=== PATIENT | female | born 1980 | race Caucasian/White ===

== ENCOUNTER 2016-12-20 02:20 | Emergency (ER) | payer MEDICAID, OTHER, SELFPAY ==
[~2016-12-20] VITALS: Ht 160 cm; Wt 97.5 kg
[~2016-12-20 02:20] MED LIST: COLA100C3 PO; DULERA INH; MONT10TA2 PO; MOTR200T44 PO; OMEP20CA3 PO; OXYB5TA PO; albuterol inhaler INH
[2016-12-20 02:27] VITALS: BP 129/79
[2016-12-20] MEDS ORDERED: OMEP40CA2 PO (02:30)
[2016-12-20] MEDS ORDERED: CYMB60CA3 PO (02:32)
[2016-12-20] MEDS ORDERED: GABA-282 PO (02:32)
[2016-12-20] MEDS ORDERED: CYMB1CAP4 PO (02:33)
[2016-12-20] MEDS ORDERED: HYDROmorphone HCL 1 MG/ML SYRINGE (J1170) IM ONE (03:15)
[2016-12-20] MEDS ORDERED: cefTRIAXone SOD 1 GM VIAL (J0696) IM ONE (03:15)
[2016-12-20] MEDS ORDERED: ZITHTAB PO (03:20)
[2016-12-20] MEDS ORDERED: AZITHROMYCIN 250 MG TAB PO ONE (03:30)
[2016-12-20] MEDS ORDERED: LIDOCAINE 1% MDV 20ML VIAL As Ordered ONE (03:45)
[2016-12-20] MEDS ORDERED: ACET30TAB PO (14:40)
== END 2016-12-20 04:23 | disposition home or self-care (01) ==
LOC: M ED 03:35
DX: H73.011 Bullous myringitis, right ear (principal); J45.909 Unspecified asthma, uncomplicated; K21.9 Gastro-esophageal reflux disease without esophagitis; F32.9 Major depressive disorder, single episode, unspecified
CPT/HCPCS: 96372; 99281; J0696; J1170

== ENCOUNTER 2016-12-20 13:52 | Emergency (ER) | payer SELFPAY ==
[~2016-12-20] VITALS: Ht 160 cm; Wt 97.5 kg
[~2016-12-20 13:52] MED LIST changes: +CYMB1CAP4 PO; +CYMB60CA3 PO; +GABA-282 PO; +OMEP40CA2 PO; +ZITHTAB PO
[2016-12-20 13:53] VITALS: BP 151/85
[2016-12-20] MEDS ORDERED: ACET30TAB PO (14:40)
== END 2016-12-20 14:58 | disposition home or self-care (01) ==
LOC: M ED 14:45
DX: H66.91 Otitis media, unspecified, right ear (principal); Z51.89 Encounter for other specified aftercare; E66.9 Obesity, unspecified; Z98.84 Bariatric surgery status; Z88.6 Allergy status to analgesic agent; Z79.51 Long term (current) use of inhaled steroids; Z79.899 Other long term (current) drug therapy

== ENCOUNTER → 2017-02-20 | Outpatient (REF) | payer OTHER ==
[~2017-02-20] MED LIST changes: +ACET30TAB PO; -COLA100C3 PO; +COLA100C5 PO; -OXYB5TA PO; +OXYB5TAB10 PO
[2017-02-20 15:36] LABS: BASO # 0.1 K/mm3 (0.0-0.2); BASO % 0.6 % (0.0-1.0); EOS # 0.5 K/mm3 (0.0-0.50); EOS % 5.9 % (0.0-3.0); LARGE UNSTAINED CELL # 0.1 K/mm3 (0.0-0.4); LARGE UNSTAINED CELL % 1.6 % (0.0-4.0); LYMPH # 2.2 K/mm3 (1.5-4.5); LYMPH % 24.2 % (24.0-44.0); MEAN CORPUSCULAR HEMOGLOBIN 34.3 pg (27.0-33.0); MEAN CORPUSCULAR HGB CONC 33.4 g/dl (32.0-36.5); MEAN CORPUSCULAR VOLUME 102.8 fl (80.0-96.0); MONO # 0.4 K/mm3 (0.0-0.8); MONO % 4.4 % (0.0-5.0); NEUTROPHILS # 5.4 K/mm3 (1.8-7.7); NEUTROPHILS % 63.3 % (36.0-66.0); PLATELET COUNT, AUTOMATED 269 k/mm3 (150-450); RED CELL DISTRIBUTION WIDTH 12.9 % (11.5-14.5); WHITE BLOOD COUNT 8.5 K/mm3 (4.0-10.0)
[2017-02-20 15:52] LABS: ALBUMIN 3.4 GM/DL (3.2-5.2); ALBUMIN/GLOBULIN RATIO 1.03 (1.00-1.93); ALKALINE PHOSPHATASE 101 U/L (45-117); ALT/SGPT 21 U/L (12-78); ANION GAP 10 MEQ/L (8-16); AST/SGOT 22 U/L (15-37); BILIRUBIN,TOTAL 0.4 MG/DL (0.2-1.0); BLOOD UREA NITROGEN 5 MG/DL (7-18); CALCIUM LEVEL 8.9 MG/DL (8.5-10.1); CARBON DIOXIDE LEVEL 23 MEQ/L (21-32); CHLORIDE LEVEL 108 MEQ/L (98-107); CHOLESTEROL LEVEL 146 MG/DL (<200); CREATININE FOR GFR 0.74 MG/DL (0.55-1.02); FREE T4 0.77 NG/DL (0.76-1.46); GLOMERULAR FILTRATION RATE > 60.0 (>60); GLUCOSE, FASTING 84 MG/DL (70-105); POTASSIUM SERUM 4.4 MEQ/L (3.5-5.1); SODIUM LEVEL 141 MEQ/L (136-145); TOTAL PROTEIN 6.7 GM/DL (6.4-8.2); TRIGLYCERIDES LEVEL 144 MG/DL (<150)
[2017-02-20 15:55] LABS: VITAMIN B12 LEVEL 285 PG/ML (247-911)
[2017-02-20 17:00] LABS: ERYTHROCYTE SEDIMENTATION RATE 4 mm/hr (0-20)
== END ==
LOC: M SFHCSACK 10:39
PROVIDERS: ATTEND Physician Assistant
DX: R53.83 Other fatigue (principal); G89.29 Other chronic pain; Z13.220 Encounter for screening for lipoid disorders

== ENCOUNTER → 2017-04-30 | Outpatient (CLI) | payer OTHER ==
--- NOTE | 2017-04-30 13:10 | REP ---
BILATERAL SHOULDER SERIES: Three views of each shoulder are performed. There is no fracture or dislocation bilaterally. No intrinsic osseous pathology is seen. There is mild joint space narrowing and spurring at the acromioclavicular joints bilaterally. IMPRESSION: Mild degenerative changes bilateral acromioclavicular joints. Unreviewed
--- NOTE | 2017-04-30 13:14 | REP ---
Cervical spine series: Seven views. History: Neck pain. Findings: Lateral views done in flexion, extension and neutral position show preserved vertebral body heights and normal alignment. No subluxation or instability is seen. Disc spaces are maintained. Prevertebral soft tissues are not widened. The patient is noted to be edentulous. Oblique images demonstrate intact neural foramina bilaterally at each cervical level and normally aligned facets. AP and open mouth odontoid views are unremarkable. Impression: Negative cervical spine radiographs. Signed by Brian Ramos MD 04/30/2017 03:51 P
--- NOTE | 2017-04-30 13:14 | REP ---
LUMBOSACRAL SPINE: Five views of the lumbosacral spine performed. There is no compression fracture or malalignment. There is normal lumbar lordosis with no spondylolysis or spondylolisthesis. There is mild spurring of L4. There is mild disc space narrowing with subchondral sclerosis at L5-S1, with sclerosis at the posterior facet joints at that level. The posterior elements are intact. IMPRESSION: Mild degenerative changes L5-S1. Signed by Lázaro Tavarez MD 04/30/2017 04:50 P
--- NOTE | 2017-04-30 13:15 | REP ---
SACROILIAC JOINTS: Four views of the sacroiliac joints performed. There is no fracture or dislocation. There is very mild bilateral narrowing and subchondral sclerosis at the sacroiliac joints. IMPRESSION: Mild arthritic changes bilateral sacroiliac joints. Signed by Lázaro Tavarez MD 04/30/2017 04:50 P
[2017-04-30 19:07] LABS: ALBUMIN 3.8 GM/DL (3.2-5.2); ALBUMIN/GLOBULIN RATIO 1.15 (1.00-1.93); ALKALINE PHOSPHATASE 128 U/L (45-117); ALT/SGPT 120 U/L (12-78); ANION GAP 10 MEQ/L (8-16); AST/SGOT 196 U/L (15-37); BILIRUBIN,TOTAL 0.4 MG/DL (0.2-1.0); BLOOD UREA NITROGEN 5 MG/DL (7-18); CALCIUM LEVEL 8.7 MG/DL (8.5-10.1); CARBON DIOXIDE LEVEL 26 MEQ/L (21-32); CHLORIDE LEVEL 104 MEQ/L (98-107); COMPLEMENT C3 122 MG/DL (90-180); COMPLEMENT C4 27.9 MG/DL (10-40); CREATININE FOR GFR 0.72 MG/DL (0.55-1.02); GLOMERULAR FILTRATION RATE > 60.0 (>60); GLUCOSE, FASTING 82 MG/DL (70-105); POTASSIUM SERUM 4.3 MEQ/L (3.5-5.1); SODIUM LEVEL 140 MEQ/L (136-145); TOTAL PROTEIN 7.1 GM/DL (6.4-8.2)
[2017-04-30 19:41] LABS: INR 0.94
[2017-04-30 20:28] LABS: BASO # 0.1 K/mm3 (0.0-0.2); EOS # 0.8 K/mm3 (0.0-0.50); EOS % 11.2 % (0.0-3.0); LARGE UNSTAINED CELL # 0.1 K/mm3 (0.0-0.4); LARGE UNSTAINED CELL % 1.9 % (0.0-4.0); LYMPH # 1.9 K/mm3 (1.5-4.5); LYMPH % 26.4 % (24.0-44.0); MEAN CORPUSCULAR HEMOGLOBIN 35.7 pg (27.0-33.0); MEAN CORPUSCULAR HGB CONC 34.8 g/dl (32.0-36.5); MEAN CORPUSCULAR VOLUME 102.4 fl (80.0-96.0); MONO # 0.3 K/mm3 (0.0-0.8); MONO % 4.6 % (0.0-5.0); NEUTROPHILS # 3.9 K/mm3 (1.8-7.7); NEUTROPHILS % 54.9 % (36.0-66.0); PLATELET COUNT, AUTOMATED 288 k/mm3 (150-450); RED CELL DISTRIBUTION WIDTH 12.5 % (11.5-14.5)
[2017-04-30 21:04] LABS: ERYTHROCYTE SEDIMENTATION RATE 2 mm/hr (0-20)
[2017-05-02 13:34] LABS: ALBUMIN 4.17 GM/DL (3.29-5.55); ALBUMIN % 58.8 % (55.8-66.1); GAMMA GLOBULIN % 14.2 % (11.1-18.8)
[2017-05-03 00:55] LABS: Lyme Disease IgG/IgM Antibodie <0.91 ISR (0.00-0.90); Lyme Disease IgM Ab Quantitati <0.80 index (0.00-0.79)
== END ==
LOC: M SMT 11:34
PROVIDERS: ATTEND Internal Medicine Rheumatology
DX: M35.9 Systemic involvement of connective tissue, unspecified (principal); Z79.899 Other long term (current) drug therapy; R53.82 Chronic fatigue, unspecified; D80.1 Nonfamilial hypogammaglobulinemia

== ENCOUNTER 2017-05-13 21:08 | Emergency (ER) | payer OTHER ==
[~2017-05-13] VITALS: Ht 160 cm; Wt 100.0 kg
[2017-05-14] MEDS ORDERED: ONDANSETRON 4MG/2ML VIAL (J2405) IV ONE (01:45)
[2017-05-14] MEDS ORDERED: NS 1,000 ML IV ONE (01:45)
[2017-05-14] MEDS ORDERED: MORPHINE 4 MG/ML 1ML SYRINGE IV ONE (01:45)
[2017-05-14 02:05] LABS: BASO # 0.1 10^3/uL (0.0-0.2); BASO % 0.5 % (0.0-1.0); EOS # 0.9 10^3/uL (0.0-0.50); EOS % 7.9 % (0.0-3.0); IMMATURE GRANULOCYTE % 0.3 % (0-0); LYMPH % 26.6 % (24.0-44.0); MEAN CORPUSCULAR HEMOGLOBIN 34.7 pg (27.0-33.0); MEAN CORPUSCULAR HGB CONC 34.5 g/dl (32.0-36.5); MEAN CORPUSCULAR VOLUME 100.7 fl (80.0-96.0); MONO # 0.7 10^3/uL (0.0-0.8); MONO % 6.3 % (0.0-5.0); NEUTROPHILS # 6.7 10^3/uL (1.8-7.7); NEUTROPHILS % 58.4 % (36.0-66.0); PLATELET COUNT, AUTOMATED 231 10^3/uL (150-450); RED CELL DISTRIBUTION WIDTH 12.5 % (11.5-14.5); WHITE BLOOD COUNT 11.4 10^3/uL (4.0-10.0)
[2017-05-14 02:30] LABS: ALBUMIN 3.4 GM/DL (3.2-5.2); ALKALINE PHOSPHATASE 142 U/L (45-117); ALT/SGPT 25 U/L (12-78); AMYLASE 35 U/L (25-115); ANION GAP 4 MEQ/L (8-16); AST/SGOT 25 U/L (15-37); BILIRUBIN,DIRECT 0.2 MG/DL (0.0-0.2); BILIRUBIN,TOTAL 0.7 MG/DL (0.2-1.0); BLOOD UREA NITROGEN 6 MG/DL (7-18); CALCIUM LEVEL 8.6 MG/DL (8.5-10.1); CARBON DIOXIDE LEVEL 30 MEQ/L (21-32); CHLORIDE LEVEL 106 MEQ/L (98-107); CREATININE FOR GFR 0.68 MG/DL (0.55-1.02); GLOMERULAR FILTRATION RATE > 60.0 (>60); GLUCOSE, FASTING 84 MG/DL (70-105); SODIUM LEVEL 140 MEQ/L (136-145); TOTAL PROTEIN 6.8 GM/DL (6.4-8.2)
--- NOTE | 2017-05-14 03:20 | REPUSA ---
CLINICAL HISTORY: RUQ pain. TECHNIQUE: Realtime sonographic images were obtained in multiple projections. COMMENTS: The visualized liver is of uniform echo texture without evidence of mass or defect. There is no intra or extrahepatic biliary ductal dilatation. The common bile duct measures 5.8 mm. The gallbladder is physiologically distended without evidence of calculi. The gallbladder wall is not thickened and there is no pericholecystic fluid. The right kidney measures 10.3x5.3x4.3 cm The visualized portions of the pancreas are unremarkable. IMPRESSION: No evidence of cholelithiasis or cholecystitis. Thank you for your kind referral of this patient.
[2017-05-14 04:20] VITALS: BP 128/62
== END 2017-05-14 04:21 | disposition home or self-care (01) ==
LOC: M ED 21:08
DX: R10.9 Unspecified abdominal pain (principal); J45.909 Unspecified asthma, uncomplicated; Z79.899 Other long term (current) drug therapy; Z88.8 Allergy status to other drugs, medicaments and biological substances; Z98.0 Intestinal bypass and anastomosis status
CPT/HCPCS: 76705; 80048; 80076; 81001; 82150; 83690; 85025; 87088; 96374; 96375; 99283; J2405

== ENCOUNTER → 2017-05-27 | Outpatient (REF) | payer OTHER | LOC: M SFHCSACK 10:48 | PROVIDERS: ATTEND Physician Assistant | DX: G89.4 Chronic pain syndrome (principal); Z87.440 Personal history of urinary (tract) infections; E55.9 Vitamin D deficiency, unspecified; Z86.39 Personal history of other endocrine, nutritional and metabolic disease ==

== ENCOUNTER → 2017-05-27 | Outpatient (CLI) | payer OTHER ==
[2017-05-27 22:02] LABS: BASO # 0.1 10^3/uL (0.0-0.2); BASO % 0.8 % (0.0-1.0); EOS # 0.4 10^3/uL (0.0-0.50); EOS % 3.9 % (0.0-3.0); IMMATURE GRANULOCYTE % 0.2 % (0-0); LYMPH # 2.2 10^3/uL (1.5-4.5); LYMPH % 24.6 % (24.0-44.0); MEAN CORPUSCULAR HEMOGLOBIN 34.5 pg (27.0-33.0); MEAN CORPUSCULAR HGB CONC 32.9 g/dl (32.0-36.5); MEAN CORPUSCULAR VOLUME 104.8 fl (80.0-96.0); MONO # 0.6 10^3/uL (0.0-0.8); MONO % 6.2 % (0.0-5.0); NEUTROPHILS # 5.7 10^3/uL (1.8-7.7); NEUTROPHILS % 64.3 % (36.0-66.0); PLATELET COUNT, AUTOMATED 207 10^3/uL (150-450); RED CELL DISTRIBUTION WIDTH 12.7 % (11.5-14.5); WHITE BLOOD COUNT 8.9 10^3/uL (4.0-10.0)
[2017-05-27 22:03] LABS: VITAMIN B12 LEVEL 518 PG/ML (247-911)
[2017-05-27 22:13] LABS: ALKALINE PHOSPHATASE 127 U/L (45-117); ALT/SGPT 28 U/L (12-78); ANION GAP 8 MEQ/L (8-16); AST/SGOT 45 U/L (15-37); BILIRUBIN,TOTAL 0.6 MG/DL (0.2-1.0); BLOOD UREA NITROGEN 6 MG/DL (7-18); CALCIUM LEVEL 9.1 MG/DL (8.5-10.1); CARBON DIOXIDE LEVEL 29 MEQ/L (21-32); CHLORIDE LEVEL 104 MEQ/L (98-107); CREATININE FOR GFR 0.61 MG/DL (0.55-1.02); GLOMERULAR FILTRATION RATE > 60.0 (>60); GLUCOSE, FASTING 90 MG/DL (70-105); POTASSIUM SERUM 4.2 MEQ/L (3.5-5.1); SODIUM LEVEL 141 MEQ/L (136-145)
[2017-05-27 22:14] LABS: ALBUMIN 3.7 GM/DL (3.2-5.2); ALBUMIN/GLOBULIN RATIO 1.12 (1.00-1.93)
== END ==
LOC: M SFHCSACK 10:10
PROVIDERS: ATTEND Physician Assistant
DX: G89.4 Chronic pain syndrome (principal); Z36.89 Encounter for other specified antenatal screening

== ENCOUNTER → 2017-05-29 | Outpatient (REF) | payer OTHER | LOC: M SFHCSACK 15:45 | PROVIDERS: ATTEND Physician Assistant | DX: E55.9 Vitamin D deficiency, unspecified (principal) ==

== ENCOUNTER → 2017-07-15 | Outpatient (CLI) | payer OTHER ==
--- NOTE | 2017-07-15 13:43 | REP ---
MAXILLOFACIAL CT WITHOUT CONTRAST: HISTORY: Carotid pansinusitis. Minimal mucosal thickening is present in the right ethmoid sinus. The remaining sinuses are clear. The ostiomeatal units are patent. The middle and inferior nasal turbinates are partially paradoxical. There is mehreen bullosa of the middle nasal turbinates. There is mild deviation of the nasal septum to the right. A spur is present arising from the right side of the nasal septum. The cribriform plate, medial choudhury of the orbits and optic canals are intact. The carotid canals form a segment of the posterolateral choudhury of the sphenoid sinus. The sphenoid sinus septa insert into the internal carotid canal choudhury. A right cleft palate is present. A 4 mm ossified density likely representing a tooth remnant is present in the right anterior maxilla. IMPRESSION: Sinus mucosal thickening as described above. Signed by Lisandro Garcia MD 07/15/2017 01:45 P
== END ==
LOC: M RAD 12:43
PROVIDERS: ATTEND Otolaryngology
DX: J32.4 Chronic pansinusitis (principal)

== ENCOUNTER 2017-07-28 15:04 | Emergency (ER) | payer OTHER ==
[~2017-07-28] VITALS: Ht 160 cm; Wt 95.5 kg
[2017-07-28 15:54] LABS: BASO # 0.1 10^3/uL (0.0-0.2); BASO % 0.6 % (0.0-1.0); EOS # 0.2 10^3/uL (0.0-0.50); EOS % 2.1 % (0.0-3.0); IMMATURE GRANULOCYTE % 0.4 % (0-0); LYMPH # 1.8 10^3/uL (1.5-4.5); LYMPH % 22.3 % (24.0-44.0); MEAN CORPUSCULAR HEMOGLOBIN 34.9 pg (27.0-33.0); MEAN CORPUSCULAR HGB CONC 34.6 g/dl (32.0-36.5); MEAN CORPUSCULAR VOLUME 100.7 fl (80.0-96.0); MONO # 0.6 10^3/uL (0.0-0.8); MONO % 7.1 % (0.0-5.0); NEUTROPHILS # 5.4 10^3/uL (1.8-7.7); NEUTROPHILS % 67.5 % (36.0-66.0); PLATELET COUNT, AUTOMATED 268 10^3/uL (150-450); RED CELL DISTRIBUTION WIDTH 12.8 % (11.5-14.5)
[2017-07-28] MEDS ORDERED: PERCOCET 5MG/325MG TAB PO ONE (16:00)
[2017-07-28] MEDS ORDERED: ONDANSETRON 4 MG ORAL DISINTEGRATING TAB (S0181) PO ONE (16:00)
[2017-07-28 16:22] LABS: ALBUMIN 3.5 GM/DL (3.2-5.2); ALBUMIN/GLOBULIN RATIO 1.13 (1.00-1.93); ALKALINE PHOSPHATASE 124 U/L (45-117); ALT/SGPT 61 U/L (12-78); ANION GAP 12 MEQ/L (8-16); AST/SGOT 56 U/L (7-37); BILIRUBIN,TOTAL 0.3 MG/DL (0.2-1.0); BLOOD UREA NITROGEN 2 MG/DL (7-18); CALCIUM LEVEL 8.2 MG/DL (8.5-10.1); CARBON DIOXIDE LEVEL 25 MEQ/L (21-32); CHLORIDE LEVEL 108 MEQ/L (98-107); CREATININE FOR GFR 0.63 MG/DL (0.55-1.02); GLOMERULAR FILTRATION RATE > 60.0 (>60); GLUCOSE, FASTING 89 MG/DL (70-105); POTASSIUM SERUM 3.9 MEQ/L (3.5-5.1); SODIUM LEVEL 145 MEQ/L (136-145); TOTAL PROTEIN 6.6 GM/DL (6.4-8.2)
[2017-07-28 16:38] LABS: HIV SCRN NEGATIVE (NEGATIVE)
[2017-07-28 16:39] LABS: CONTROL LINE INT CTR LINE PRESENT; HIV SCRN1 NEGATIVE (NEGATIVE)
[2017-07-28] MEDS ORDERED: TETANUS IMMUNE GLOBULIN (HUMAN) 250 UNITS/ML SYRINGE (J1670)(90389) IM ONE (17:00)
[2017-07-28] MEDS ORDERED: AZITHROMYCIN 250 MG TAB PO ONE (17:00)
[2017-07-28] MEDS ORDERED: metroNIDAZOLE (FLAGYL) 500 MG TAB PO ONE (17:00)
[2017-07-28] MEDS ORDERED: EXPOSURE KIT-ADULT 7 DAY SUPPLY PO ONE ×2 (17:00)
[2017-07-28] MEDS ORDERED: cefTRIAXone SOD 250 MG VIAL (J0696) IM ONE (17:00)
[2017-07-28] MEDS ORDERED: NORCOTAB PO (18:39)
[2017-07-28] MEDS ORDERED: ZOFR4TAB3 PO (18:39)
--- NOTE | 2017-07-28 19:00 | REPUSA ---
CT of the head Clinical history: Headache. Technique: Multiple axial CT images were obtained through the head without administration of contrast . Findings: The ventricles and sulci are symmetric bilaterally. There is no evidence of acute hemorrhag e or infarct. There is no midline shift, mass effect, or extra-axial fluid collection. The osseous st ructures are unremarkable. The visualized paranasal sinuses and mastoid air cells are clear. Impression: Negative study.
[2017-07-28 19:23] VITALS: BP 126/79
[2017-07-28] MEDS ORDERED: ADACEL/BOOSTRIX VACCINE (DIPHTH/PERTUSS/ACELL/TETANUS)0.5ML SYR (90715) IM ONE (19:30)
[2017-07-29 11:13] LABS: HEPATITIS B SURFACE ANTIBODY NEGATIVE (POSITIVE)
== END 2017-07-28 20:14 | disposition home or self-care (01) ==
LOC: M ED 15:04
DX: T76.21XA Adult sexual abuse, suspected, initial encounter (principal); S09.90XA Unspecified injury of head, initial encounter; S80.00XA Contusion of unspecified knee, initial encounter; X58.XXXA Exposure to other specified factors, initial encounter; Y92.9 Unspecified place or not applicable; Y93.9 Activity, unspecified; Y99.9 Unspecified external cause status; Z98.84 Bariatric surgery status; F17.200 Nicotine dependence, unspecified, uncomplicated; Z79.899 Other long term (current) drug therapy; Z88.6 Allergy status to analgesic agent
CPT/HCPCS: 70450; 80053; 85025; 86706; 86780; 86803; 87081; 87210; 87340; 87491; 87591; 87806; 90389; 90471; 90715; 99291; J0696

== ENCOUNTER → 2017-07-29 | Outpatient (CLI) | payer OTHER ==
[~2017-07-29] MED LIST changes: +NORCOTAB PO; +ZOFR4TAB3 PO
== END ==
LOC: M SFHCSACK 11:27
PROVIDERS: ATTEND Physician Assistant
DX: M79.7 Fibromyalgia (principal)

== ENCOUNTER → 2017-07-29 | Outpatient (REF) | payer OTHER ==
[2017-07-29 15:24] LABS: ALBUMIN 3.4 GM/DL (3.2-5.2); ALBUMIN/GLOBULIN RATIO 1.13 (1.00-1.93); ALKALINE PHOSPHATASE 113 U/L (45-117); ALT/SGPT 53 U/L (12-78); ANION GAP 10 MEQ/L (8-16); AST/SGOT 53 U/L (7-37); BILIRUBIN,TOTAL 0.7 MG/DL (0.2-1.0); BLOOD UREA NITROGEN 3 MG/DL (7-18); CALCIUM LEVEL 8.3 MG/DL (8.5-10.1); CARBON DIOXIDE LEVEL 28 MEQ/L (21-32); CHLORIDE LEVEL 106 MEQ/L (98-107); CREATININE FOR GFR 0.75 MG/DL (0.55-1.02); GLOMERULAR FILTRATION RATE > 60.0 (>60); GLUCOSE, FASTING 100 MG/DL (70-105); POTASSIUM SERUM 3.6 MEQ/L (3.5-5.1); SODIUM LEVEL 144 MEQ/L (136-145); TOTAL PROTEIN 6.4 GM/DL (6.4-8.2)
== END ==
LOC: M SFHCSACK 11:31
PROVIDERS: ATTEND Physician Assistant
DX: R25.1 Tremor, unspecified (principal); E55.9 Vitamin D deficiency, unspecified

== ENCOUNTER → 2017-08-09 | Outpatient (REF) | payer OTHER | LOC: M SFHCSACK 11:54 | DX: Z87.440 Personal history of urinary (tract) infections (principal) | CPT/HCPCS: 87086 ==

== ENCOUNTER 2017-08-12 11:47 | Emergency (ER) | payer OTHER ==
[2017-08-12] MEDS: PERCOCET 5MG/325MG TAB PO (16:06)
== END 2017-08-12 17:06 | disposition home or self-care (01) ==
LOC: M ED 11:47
DX: S30.0XXA Contusion of lower back and pelvis, initial encounter (principal); M54.5 Low back pain; W10.9XXA Fall (on) (from) unspecified stairs and steps, initial encounter; Y92.9 Unspecified place or not applicable; Y93.9 Activity, unspecified; Z98.84 Bariatric surgery status; J45.909 Unspecified asthma, uncomplicated; J30.2 Other seasonal allergic rhinitis; Z79.899 Other long term (current) drug therapy; Z88.6 Allergy status to analgesic agent
CPT/HCPCS: 72110

== ENCOUNTER → 2017-10-08 | Outpatient (REF) | payer OTHER ==
[2017-10-08 21:33] LABS: BASO # 0.1 10^3/uL (0.0-0.2); BASO % 0.8 % (0.0-1.0); EOS # 0.8 10^3/uL (0.0-0.50); EOS % 9.4 % (0.0-3.0); HEMATOCRIT 41.1 % (36.0-47.0); HEMOGLOBIN 13.6 g/dl (12.0-16.0); IMMATURE GRANULOCYTE % 0.2 % (0-3.0); LYMPH % 24.1 % (24.0-44.0); MEAN CORPUSCULAR HEMOGLOBIN 34.2 pg (27.0-33.0); MEAN CORPUSCULAR HGB CONC 33.1 g/dl (32.0-36.5); MEAN CORPUSCULAR VOLUME 103.3 fl (80.0-96.0); MONO # 0.7 10^3/uL (0.0-0.8); MONO % 7.8 % (0.0-5.0); NEUTROPHILS # 4.8 10^3/uL (1.8-7.7); NEUTROPHILS % 57.7 % (36.0-66.0); PLATELET COUNT, AUTOMATED 234 10^3/uL (150-450); RED BLOOD COUNT 3.98 10^6/uL (4.00-5.40); RED CELL DISTRIBUTION WIDTH 12.1 % (11.5-14.5); WHITE BLOOD COUNT 8.3 10^3/uL (4.0-10.0)
[2017-10-08 21:58] LABS: VITAMIN B12 LEVEL 783 PG/ML
[2017-10-08 21:59] LABS: ALBUMIN 3.4 GM/DL (3.2-5.2); ALBUMIN/GLOBULIN RATIO 1.17 (1.00-1.93); ALKALINE PHOSPHATASE 107 U/L (45-117); ALT/SGPT 30 U/L (12-78); ANION GAP 9 MEQ/L (8-16); AST/SGOT 34 U/L (7-37); BILIRUBIN,TOTAL 0.4 MG/DL (0.2-1.0); BLOOD UREA NITROGEN 2 MG/DL (7-18); CALCIUM LEVEL 8.4 MG/DL (8.5-10.1); CARBON DIOXIDE LEVEL 29 MEQ/L (21-32); CHLORIDE LEVEL 102 MEQ/L (98-107); CREATININE FOR GFR 0.65 MG/DL (0.55-1.30); FOLATE 4.3 NG/ML; GLOMERULAR FILTRATION RATE > 60.0 (>60); GLUCOSE, FASTING 57 MG/DL (70-100); POTASSIUM SERUM 3.7 MEQ/L (3.5-5.1); SODIUM LEVEL 140 MEQ/L (136-145); TOTAL PROTEIN 6.3 GM/DL (6.4-8.2)
== END ==
LOC: M LABNEURO 13:19
DX: R25.1 Tremor, unspecified (principal); Z13.29 Encounter for screening for other suspected endocrine disorder; E53.8 Deficiency of other specified B group vitamins

== ENCOUNTER 2017-10-15 01:21 | Emergency (ER) | payer OTHER ==
[2017-10-15 04:16] LABS: BASO # 0.1 10^3/uL (0.0-0.2); BASO % 0.4 % (0.0-1.0); EOS # 0.6 10^3/uL (0.0-0.50); EOS % 5.6 % (0.0-3.0); HEMATOCRIT 40.4 % (36.0-47.0); IMMATURE GRANULOCYTE % 0.4 % (0-3.0); LYMPH # 3.3 10^3/uL (1.5-4.5); LYMPH % 29.2 % (24.0-44.0); MEAN CORPUSCULAR HEMOGLOBIN 34.6 pg (27.0-33.0); MEAN CORPUSCULAR HGB CONC 34.7 g/dl (32.0-36.5); MEAN CORPUSCULAR VOLUME 99.8 fl (80.0-96.0); MONO # 0.6 10^3/uL (0.0-0.8); MONO % 5.6 % (0.0-5.0); NEUTROPHILS # 6.6 10^3/uL (1.8-7.7); NEUTROPHILS % 58.8 % (36.0-66.0); PLATELET COUNT, AUTOMATED 200 10^3/uL (150-450); RED BLOOD COUNT 4.05 10^6/uL (4.00-5.40); RED CELL DISTRIBUTION WIDTH 12.1 % (11.5-14.5); WHITE BLOOD COUNT 11.2 10^3/uL (4.0-10.0)
[2017-10-15 04:28] LABS: INR 1.04; PROTHROMBIN TIME 13.7 SECONDS (12.4-14.5)
[2017-10-15 04:29] LABS: PARTIAL THROMBOPLASTIN TIME 28.4 SECONDS (26.8-37.9)
[2017-10-15 04:34] LABS: ANION GAP 11 MEQ/L (8-16); BLOOD UREA NITROGEN 6 MG/DL (7-18); CALCIUM LEVEL 7.9 MG/DL (8.5-10.1); CARBON DIOXIDE LEVEL 25 MEQ/L (21-32); CHLORIDE LEVEL 104 MEQ/L (98-107); CREATININE FOR GFR 0.75 MG/DL (0.55-1.30); GLOMERULAR FILTRATION RATE > 60.0 (>60); GLUCOSE, FASTING 98 MG/DL (70-100); POTASSIUM SERUM 3.9 MEQ/L (3.5-5.1); SODIUM LEVEL 140 MEQ/L (136-145)
== END 2017-10-15 05:30 | disposition home or self-care (01) ==
LOC: M ED 01:21
DX: R19.7 Diarrhea, unspecified (principal); K21.9 Gastro-esophageal reflux disease without esophagitis; F33.9 Major depressive disorder, recurrent, unspecified; F41.9 Anxiety disorder, unspecified; Z79.2 Long term (current) use of antibiotics; Z79.899 Other long term (current) drug therapy; Z88.8 Allergy status to other drugs, medicaments and biological substances
CPT/HCPCS: 80048

== ENCOUNTER → 2017-10-15 | Outpatient (REF) | payer OTHER ==
[2017-10-15 15:18] LABS: FREE T4 0.62 NG/DL (0.76-1.46)
[2017-10-17 14:14] LABS: TISSUE TRANSGLUTAMINASE IgA <2 U/mL (0-3)
== END ==
LOC: M LAB REF 14:46
DX: R19.7 Diarrhea, unspecified (principal)

== ENCOUNTER → 2017-10-31 | Outpatient (CLI) | payer OTHER | LOC: M ADAMS 11:33 | DX: J45.40 Moderate persistent asthma, uncomplicated (principal) | CPT/HCPCS: 71046 ==

== ENCOUNTER 2017-11-07 09:45 | Day surgery (SDC) | payer OTHER ==
[2017-11-07] MEDS ORDERED: LIDOCAINE 1% MDV 20ML VIAL SQ (10:00)
[2017-11-07] MEDS: LR 1,000 ML IV ×3 (10:20→14:48)
[2017-11-07] MEDS ORDERED: SCOPOLAMINE 1MG TRANSDERMAL PATCH As Ordered (11:16)
[2017-11-07] MEDS: SCOPOLAMINE 1MG TRANSDERMAL PATCH TOP (11:25)
[2017-11-07] MEDS: METHYLENE BLUE 0.5% (5MG/ML) 10 ML AMP (PROVAYBLUE)(Q9968 PER 1MG) As Ordered (12:05)
[2017-11-07] MEDS: EPINEPHrine 1MG/ML INJ 30ML MD-VIAL As Ordered (12:05)
[2017-11-07] MEDS: LIDOCAINE W/EPINEPHRINE 1% 20ML VIAL As Ordered ×2 (12:05)
[2017-11-07] MEDS ORDERED: METOCLOPRAMIDE INJ 10MG/2ML VIAL (J2765) As Ordered (12:17)
[2017-11-07] MEDS ORDERED: fentaNYL 250 MCG/5 ML INJECTION (J3010) As Ordered (12:17)
[2017-11-07] MEDS ORDERED: ONDANSETRON 4MG/2ML VIAL (J2405) As Ordered (12:17)
[2017-11-07] MEDS ORDERED: ROCURONIUM BROMIDE 50 MG/5 ML VIAL As Ordered (12:17)
[2017-11-07] MEDS ORDERED: PROPOFOL 200 MG/20 ML VIAL As Ordered (12:17)
[2017-11-07] MEDS ORDERED: MIDAZOLAM INJ 2 MG/2 ML VIAL (J2250) As Ordered (12:17)
[2017-11-07] MEDS ORDERED: dexameTHASONE 4 MG/ML 1ML VIAL (J1100) As Ordered (12:17)
[2017-11-07] MEDS ORDERED: NEOSTIGMINE 10 MG/10 ML VIAL (J2710) As Ordered (12:17)
[2017-11-07] MEDS ORDERED: LIDOCAINE 2% INJ 100 MG/5 ML SDV (FOR ANES.) As Ordered (12:17)
[2017-11-07] MEDS ORDERED: GLYCOPYRROLATE INJ 0.2 MG/ML 2 ML VIAL As Ordered (12:17)
[2017-11-07] MEDS ORDERED: EPINEPHrine 1MG/ML INJ 30ML MD-VIAL As Ordered (12:44)
[2017-11-07] MEDS ORDERED: fentaNYL 100 MCG/2 ML INJECTION (J3010) As Ordered (12:46)
[2017-11-07] MEDS ORDERED: KETOROLAC 30 MG/ML VIAL (J1885) IV (13:30)
[2017-11-07] MEDS ORDERED: METOCLOPRAMIDE INJ 10MG/2ML VIAL (J2765) IV (13:30)
[2017-11-07] MEDS ORDERED: fentaNYL 100 MCG/2 ML INJECTION (J3010) IV (13:30)
[2017-11-07] MEDS ORDERED: ONDANSETRON 4MG/2ML VIAL (J2405) IV (13:30)
[2017-11-07] MEDS: PERCOCET 5MG/325MG TAB PO ×2 (13:40→14:10)
[2017-11-07] MEDS: ACETAMINOPH W/CODEINE #3 TAB UD PO ×2 (16:38→20:52)
[2017-11-07] MEDS: MORPHINE 10 MG/ML 1ML VIAL (J2270) IV (18:20)
[2017-11-07] MEDS: PRIMIDONE 50 MG TAB PO (20:51)
[2017-11-07] MEDS: ALBUTEROL 90 MCG/ACT 8GM HFA INHALER INH (22:34)
[2017-11-08] MEDS: ACETAMINOPH W/CODEINE #3 TAB UD PO ×4 (01:07→14:27)
[2017-11-08] MEDS: ALBUTEROL 90 MCG/ACT 8GM HFA INHALER INH ×2 (02:55→11:50)
[2017-11-08] MEDS: MORPHINE 10 MG/ML 1ML VIAL (J2270) IV (08:12)
== END 2017-11-08 15:50 | disposition home or self-care (01) ==
LOC: M SDC 09:45 → M PED 11-08 01:45 → M MSPAV 14:19 → M ED INP 11-08 01:45 → M PED 11-08 01:45 → M SDC 11-08 15:50
DX: J34.2 Deviated nasal septum (principal); J32.9 Chronic sinusitis, unspecified; K58.9 Irritable bowel syndrome, unspecified; K21.9 Gastro-esophageal reflux disease without esophagitis; F41.9 Anxiety disorder, unspecified; R01.1 Cardiac murmur, unspecified; M79.7 Fibromyalgia; J45.40 Moderate persistent asthma, uncomplicated; R06.83 Snoring; M72.2 Plantar fascial fibromatosis; E66.9 Obesity, unspecified; Z68.41 Body mass index [BMI] 40.0-44.9, adult; Z88.6 Allergy status to analgesic agent; Z79.899 Other long term (current) drug therapy; Z98.84 Bariatric surgery status; Z87.891 Personal history of nicotine dependence; Z90.710 Acquired absence of both cervix and uterus
CPT/HCPCS: 30520

== ENCOUNTER → 2017-11-21 | Day surgery (SDC) | payer OTHER ==
[~2017-11-21] MED LIST changes: -ACET30TAB PO; -COLA100C5 PO; -CYMB1CAP4 PO; -CYMB60CA3 PO; -DULERA INH; -GABA-282 PO; +LIDOCAINE 1% MDV 20ML VIAL As Ordered; -MONT10TA2 PO; -MOTR200T44 PO; -NORCOTAB PO; -OMEP20CA3 PO; -OMEP40CA2 PO; -OXYB5TAB10 PO; +PROPOFOL 200 MG/20 ML VIAL As Ordered; -ZITHTAB PO; -ZOFR4TAB3 PO; -albuterol inhaler INH
[2017-11-21] MEDS: NS 1,000 ML IV (09:45)
== END | disposition home or self-care (01) ==
LOC: M OPP 09:31
DX: K58.2 Mixed irritable bowel syndrome (principal); R19.7 Diarrhea, unspecified; K62.1 Rectal polyp; D12.0 Benign neoplasm of cecum; K64.8 Other hemorrhoids; R10.13 Epigastric pain; R11.0 Nausea; Z98.0 Intestinal bypass and anastomosis status; R01.1 Cardiac murmur, unspecified; K21.9 Gastro-esophageal reflux disease without esophagitis; M79.7 Fibromyalgia; F41.9 Anxiety disorder, unspecified; J45.909 Unspecified asthma, uncomplicated; R06.83 Snoring; Z98.890 Other specified postprocedural states; Z98.84 Bariatric surgery status; Z88.8 Allergy status to other drugs, medicaments and biological substances; Z79.899 Other long term (current) drug therapy; Z80.0 Family history of malignant neoplasm of digestive organs
CPT/HCPCS: 45385

== ENCOUNTER → 2017-12-25 | Outpatient (CLI) | payer OTHER | LOC: M WUC 11:09 | DX: M79.605 Pain in left leg (principal) | CPT/HCPCS: 73590 ==

== ENCOUNTER → 2018-03-28 | Outpatient (REF) | payer OTHER ==
[2018-03-28 15:11] LABS: BASO % 0.4 % (0.0-1.0); EOS # 0.4 10^3/uL (0.0-0.50); EOS % 4.5 % (0.0-3.0); HEMATOCRIT 42.7 % (36.0-47.0); HEMOGLOBIN 14.1 g/dl (12.0-15.5); IMMATURE GRANULOCYTE % 0.3 % (0-3.0); LYMPH # 2.4 10^3/uL (1.5-4.5); LYMPH % 23.8 % (24.0-44.0); MEAN CORPUSCULAR HEMOGLOBIN 32.6 pg (27.0-33.0); MEAN CORPUSCULAR VOLUME 98.8 fl (80.0-96.0); MONO # 0.5 10^3/uL (0.0-0.8); MONO % 5.5 % (0.0-5.0); NEUTROPHILS # 6.5 10^3/uL (1.8-7.7); NEUTROPHILS % 65.5 % (36.0-66.0); PLATELET COUNT, AUTOMATED 217 10^3/uL (150-450); RED BLOOD COUNT 4.32 10^6/uL (4.00-5.40); RED CELL DISTRIBUTION WIDTH 14.1 % (11.5-14.5); WHITE BLOOD COUNT 9.9 10^3/uL (4.0-10.0)
[2018-03-28 15:33] LABS: ALBUMIN 3.4 GM/DL (3.2-5.2); ALBUMIN/GLOBULIN RATIO 0.97 (1.00-1.93); ALKALINE PHOSPHATASE 120 U/L (45-117); ALT/SGPT 30 U/L (12-78); ANION GAP 6 MEQ/L (8-16); AST/SGOT 29 U/L (7-37); BILIRUBIN,TOTAL 0.3 MG/DL (0.2-1.0); BLOOD UREA NITROGEN 4 MG/DL (7-18); CALCIUM LEVEL 8.8 MG/DL (8.5-10.1); CARBON DIOXIDE LEVEL 28 MEQ/L (21-32); CHLORIDE LEVEL 110 MEQ/L (98-107); CREATININE FOR GFR 0.65 MG/DL (0.55-1.30); GLOMERULAR FILTRATION RATE > 60.0 (>60); GLUCOSE, FASTING 97 MG/DL (70-100); POTASSIUM SERUM 5.1 MEQ/L (3.5-5.1); SODIUM LEVEL 144 MEQ/L (136-145); TOTAL PROTEIN 6.9 GM/DL (6.4-8.2)
[2018-03-28 16:07] LABS: TOTAL 25(OH) VITAMIN D 35.1 NG/ML (30.0-100.0)
== END ==
LOC: M SFHCSACK 10:15
DX: R25.1 Tremor, unspecified (principal); Z87.440 Personal history of urinary (tract) infections; E55.9 Vitamin D deficiency, unspecified

== ENCOUNTER → 2018-05-19 | Outpatient (CLI) | payer OTHER | LOC: M WUC 10:52 | DX: R05 Cough (principal) | CPT/HCPCS: 71046 ==

== ENCOUNTER 2018-05-25 10:25 | Emergency (ER) | payer OTHER ==
[2018-05-25 10:52] LABS: BASO # 0.1 10^3/uL (0.0-0.2); BASO % 0.4 % (0.0-1.0); EOS # 0.4 10^3/uL (0.0-0.50); EOS % 2.4 % (0.0-3.0); HEMATOCRIT 44.9 % (36.0-47.0); HEMOGLOBIN 14.8 g/dl (12.0-15.5); IMMATURE GRANULOCYTE % 0.7 % (0-3.0); LYMPH # 2.1 10^3/uL (1.5-4.5); LYMPH % 13.6 % (24.0-44.0); MEAN CORPUSCULAR HEMOGLOBIN 32.2 pg (27.0-33.0); MEAN CORPUSCULAR VOLUME 97.6 fl (80.0-96.0); MONO # 0.7 10^3/uL (0.0-0.8); MONO % 4.6 % (0.0-5.0); NEUTROPHILS # 11.8 10^3/uL (1.8-7.7); NEUTROPHILS % 78.3 % (36.0-66.0); PLATELET COUNT, AUTOMATED 249 10^3/uL (150-450); RED CELL DISTRIBUTION WIDTH 13.6 % (11.5-14.5); WHITE BLOOD COUNT 15.1 10^3/uL (4.0-10.0)
[2018-05-25] MEDS: NS 1,000 ML IV (10:54)
[2018-05-25] MEDS: ONDANSETRON 4MG/2ML VIAL (J2405) IV (10:54)
[2018-05-25] MEDS: MORPHINE 4 MG/ML 1ML VIAL/SYRINGE (J2270) IV ×2 (10:55→12:01)
[2018-05-25 11:07] LABS: KETONE, URINE AUTO RFX NEGATIVE (NEGATIVE); LEUKOCYTE ESTERASE UR AUTO RFX NEGATIVE (NEGATIVE); MUCUS, URINE RFX SMALL (NEGATIVE); NITRITE, URINE AUTO RFX NEGATIVE (NEGATIVE); RBC, URINE AUTO RFX 1 /HPF (0-3); SPECIFIC GRAVITY UR AUTO RFX 1.008 (1.002-1.035); SQUAM EPITHELIAL CELL UR AURFX 1 /HPF (0-6); WBC, URINE AUTO RFX 0 /HPF (0-3)
[2018-05-25 11:12] LABS: CONTROL LINE HCG INT CTR LINE PRESENT; HCG, SERUM QUALITATIVE NEGATIVE (NEGATIVE)
[2018-05-25 11:20] LABS: ALBUMIN 3.3 GM/DL (3.2-5.2); ALBUMIN/GLOBULIN RATIO 0.94 (1.00-1.93); ALKALINE PHOSPHATASE 127 U/L (45-117); ALT/SGPT 29 U/L (12-78); AMYLASE 32 U/L (25-115); ANION GAP 8 MEQ/L (8-16); AST/SGOT 25 U/L (7-37); BILIRUBIN,DIRECT 0.2 MG/DL (0.0-0.2); BILIRUBIN,TOTAL 0.5 MG/DL (0.2-1.0); BLOOD UREA NITROGEN 5 MG/DL (7-18); CALCIUM LEVEL 8.5 MG/DL (8.5-10.1); CARBON DIOXIDE LEVEL 27 MEQ/L (21-32); CHLORIDE LEVEL 107 MEQ/L (98-107); CREATININE FOR GFR 0.68 MG/DL (0.55-1.30); GLOMERULAR FILTRATION RATE > 60.0 (>60); GLUCOSE, FASTING 92 MG/DL (70-100); LIPASE 89 U/L (73-393); POTASSIUM SERUM 4.2 MEQ/L (3.5-5.1); SODIUM LEVEL 142 MEQ/L (136-145); TOTAL PROTEIN 6.8 GM/DL (6.4-8.2)
[2018-05-25] MEDS ORDERED: ISOVUE-370 76% 100ML VIAL (Q9967) As Ordered (11:29)
[2018-05-25] MEDS: GI COCKTAIL 50ML BTL(HYOSCYAMINE/MAALOX/LIDOCAINE VISCOUS)(1:3:1) PO (12:02)
== END 2018-05-25 12:11 | disposition home or self-care (01) ==
LOC: M ED 10:25
DX: R10.13 Epigastric pain (principal); E66.9 Obesity, unspecified; F17.210 Nicotine dependence, cigarettes, uncomplicated; Z79.899 Other long term (current) drug therapy
CPT/HCPCS: J2270

== ENCOUNTER 2018-06-04 13:53 | Emergency (ER) | payer OTHER ==
[2018-06-04 15:50] LABS: BASO % 0.3 % (0.0-1.0); EOS # 0.3 10^3/uL (0.0-0.50); EOS % 2.4 % (0.0-3.0); HEMATOCRIT 43.8 % (36.0-47.0); IMMATURE GRANULOCYTE % 0.4 % (0-3.0); LYMPH # 2.3 10^3/uL (1.5-4.5); LYMPH % 18.5 % (24.0-44.0); MEAN CORPUSCULAR HEMOGLOBIN 33.3 pg (27.0-33.0); MEAN CORPUSCULAR HGB CONC 34.2 g/dl (32.0-36.5); MEAN CORPUSCULAR VOLUME 97.3 fl (80.0-96.0); MONO # 0.6 10^3/uL (0.0-0.8); MONO % 4.7 % (0.0-5.0); NEUTROPHILS # 9.3 10^3/uL (1.8-7.7); NEUTROPHILS % 73.7 % (36.0-66.0); PLATELET COUNT, AUTOMATED 234 10^3/uL (150-450); RED CELL DISTRIBUTION WIDTH 13.3 % (11.5-14.5); WHITE BLOOD COUNT 12.6 10^3/uL (4.0-10.0)
[2018-06-04 15:52] LABS: KETONE, URINE AUTO RFX NEGATIVE (NEGATIVE); LEUKOCYTE ESTERASE UR AUTO RFX NEGATIVE (NEGATIVE); NITRITE, URINE AUTO RFX NEGATIVE (NEGATIVE); RBC, URINE AUTO RFX 1 /HPF (0-3); SPECIFIC GRAVITY UR AUTO RFX 1.011 (1.002-1.035); SQUAM EPITHELIAL CELL UR AURFX 1 /HPF (0-6); WBC, URINE AUTO RFX 0 /HPF (0-3)
[2018-06-04 16:06] LABS: ALBUMIN 3.3 GM/DL (3.2-5.2); ALBUMIN/GLOBULIN RATIO 1.03 (1.00-1.93); ALKALINE PHOSPHATASE 151 U/L (45-117); ALT/SGPT 33 U/L (12-78); AMYLASE 37 U/L (25-115); ANION GAP 8 MEQ/L (8-16); AST/SGOT 35 U/L (7-37); BILIRUBIN,DIRECT < 0.1 MG/DL (0.0-0.2); BILIRUBIN,TOTAL 0.3 MG/DL (0.2-1.0); BLOOD UREA NITROGEN 6 MG/DL (7-18); CALCIUM LEVEL 8.6 MG/DL (8.5-10.1); CARBON DIOXIDE LEVEL 26 MEQ/L (21-32); CHLORIDE LEVEL 105 MEQ/L (98-107); CREATININE FOR GFR 0.64 MG/DL (0.55-1.30); GLOMERULAR FILTRATION RATE > 60.0 (>60); GLUCOSE, FASTING 89 MG/DL (70-100); LIPASE 121 U/L (73-393); POTASSIUM SERUM 4.1 MEQ/L (3.5-5.1); SODIUM LEVEL 139 MEQ/L (136-145); TOTAL PROTEIN 6.5 GM/DL (6.4-8.2)
[2018-06-04] MEDS: PROMETHAZINE 25 MG TAB PO (17:31)
[2018-06-04] MEDS: traMADol 50 MG TAB PO (17:32)
== END 2018-06-04 19:27 | disposition home or self-care (01) ==
LOC: M ED 13:53
DX: G89.29 Other chronic pain (principal); R10.84 Generalized abdominal pain; K52.9 Noninfective gastroenteritis and colitis, unspecified; R11.2 Nausea with vomiting, unspecified; K21.9 Gastro-esophageal reflux disease without esophagitis; R51 Headache; M79.7 Fibromyalgia; Z98.84 Bariatric surgery status; Z72.0 Tobacco use; Z79.899 Other long term (current) drug therapy; Z88.6 Allergy status to analgesic agent
CPT/HCPCS: 82150

== ENCOUNTER → 2019-03-12 | Outpatient (CLI) | payer MEDICAID ==
[~2019-03-12] MED LIST changes: +ACET-716 PO; +AUGM875T28 PO; +BENT10CA PO; +CARA1TAB6 PO; +COLA100C5 PO; +CYMB1CAP4 PO; +CYMB60CA3 PO; +DOXY100C37; +DULERA INH; +FLUTISP; +GABA-843 PO; +HYDR-3715 PO; -LIDOCAINE 1% MDV 20ML VIAL As Ordered; +LORA-243 PO; +MONT10TA2 PO; +MOTR200T44 PO; +MULT1TAB10 PO; +OMEP20CA4 PO; +OMEP40CA2 PO; +ONDA8TAB7 PO; +OXYB5TAB10 PO; +PERC5TAB12 PO; +PRED20TA PO; +PRIM50TA6 PO; +PROM25TA12 PO; -PROPOFOL 200 MG/20 ML VIAL As Ordered; +TIZA4CAP PO; +TRAM50TA2 PO; +TURM500C3 PO; +TYLE500T78 PO; +VITA100018 PO; +ZITHTAB PO; +ZOFR4TAB14 PO; +albuterol inhaler INH
== END ==
LOC: M OUTALCOH 07:42
PROVIDERS: ATTEND Psychiatry & Neurology Psychiatry
DX: F10.20 Alcohol dependence, uncomplicated (principal)

== ENCOUNTER 2019-04-10 14:55 | Outpatient (RCR) | payer MEDICAID | END 2019-04-11 | LOC: M OUTALCOH 14:55 | PROVIDERS: ATTEND Psychiatry & Neurology Psychiatry | DX: F10.20 Alcohol dependence, uncomplicated (principal); F17.200 Nicotine dependence, unspecified, uncomplicated ==

== ENCOUNTER 2019-05-05 16:00 | Outpatient (RCR) | payer MEDICAID | END 2019-05-11 | LOC: M OUTALCOH 16:00 | PROVIDERS: ATTEND Psychiatry & Neurology Psychiatry | DX: F10.20 Alcohol dependence, uncomplicated (principal); F17.200 Nicotine dependence, unspecified, uncomplicated ==

== ENCOUNTER 2019-06-08 16:00 | Outpatient (RCR) | payer MEDICAID ==
[~2019-06-08 16:00] MED LIST changes: -OMEP40CA2 PO; +OMEP40CA97 PO
== END 2019-06-11 ==
LOC: M OUTALCOH 16:00
PROVIDERS: ATTEND Psychiatry & Neurology Psychiatry
DX: F10.20 Alcohol dependence, uncomplicated (principal); F17.200 Nicotine dependence, unspecified, uncomplicated

== ENCOUNTER 2019-07-08 12:00 | Outpatient (RCR) | payer MEDICAID | END 2019-07-11 | LOC: M OUTALCOH 12:00 | PROVIDERS: ATTEND Psychiatry & Neurology Psychiatry | DX: F10.20 Alcohol dependence, uncomplicated (principal); F17.200 Nicotine dependence, unspecified, uncomplicated ==

== ENCOUNTER 2019-07-22 09:45 | Outpatient (RCR) | payer MEDICAID ==
[~2019-07-22 09:45] MED LIST changes: +OMEP-172 PO; -OMEP20CA4 PO
== END 2019-08-11 ==
LOC: M OUTALCOH 09:45
PROVIDERS: ATTEND Psychiatry & Neurology Psychiatry
DX: F10.20 Alcohol dependence, uncomplicated (principal); F17.200 Nicotine dependence, unspecified, uncomplicated

== ENCOUNTER 2019-08-13 15:23 | Outpatient (RCR) | payer MEDICAID ==
[~2019-08-13 15:23] MED LIST changes: -OMEP-172 PO; +OMEP1CAP73 PO; +ONDA8TAB10 PO; -ONDA8TAB7 PO
== END 2019-09-11 ==
LOC: M OUTALCOH 15:23
PROVIDERS: ATTEND Psychiatry & Neurology Psychiatry
DX: F10.20 Alcohol dependence, uncomplicated (principal); F17.200 Nicotine dependence, unspecified, uncomplicated

== ENCOUNTER → 2020-06-22 | Outpatient (REF) | payer MEDICAID, OTHER ==
[~2020-06-22] MED LIST changes: -MONT10TA2 PO; +MONT10TA4 PO
[2020-06-22 12:18] LABS: BASO % 0.7 % (0.0-1.0); EOS # 0.3 10^3/uL (0.0-0.5); EOS % 5.5 % (0.0-3.0); HEMATOCRIT 44.7 % (36.0-47.0); HEMOGLOBIN 14.5 g/dl (12.0-15.5); LYMPH # 1.3 10^3/uL (1.5-5.0); MEAN CORPUSCULAR HEMOGLOBIN 31.9 pg (27.0-33.0); MEAN CORPUSCULAR HGB CONC 32.4 g/dl (32.0-36.5); MEAN CORPUSCULAR VOLUME 98.5 fl (80.0-96.0); MONO # 0.6 10^3/uL (0.0-0.8); MONO % 11.3 % (0.0-5.0); NEUTROPHILS # 3.2 10^3/uL (1.5-8.5); NEUTROPHILS % 58.3 % (36.0-66.0); PLATELET COUNT, AUTOMATED 214 10^3/uL (150-450); RED BLOOD COUNT 4.54 10^6/uL (4.00-5.40); WHITE BLOOD COUNT 5.4 10^3/uL (4.0-10.0)
[2020-06-22 12:42] LABS: ERYTHROCYTE SEDIMENTATION RATE 1 mm/hr (0-20)
[2020-06-22 12:48] LABS: ALBUMIN 4.2 GM/DL (3.2-5.2); ALT/SGPT 31 U/L (12-78); BILIRUBIN,TOTAL 0.7 MG/DL (0.2-1.0); BLOOD UREA NITROGEN 5 MG/DL (7-18); CALCIUM LEVEL 9.1 MG/DL (8.5-10.1); CARBON DIOXIDE LEVEL 25 MEQ/L (21-32); CHLORIDE LEVEL 102 MEQ/L (98-107); CHOLESTEROL LEVEL 208 MG/DL (<200); CHOLESTEROL RISK RATIO 1.507 (<5); CREATININE FOR GFR 0.75 MG/DL (0.55-1.30); FREE T4 0.89 NG/DL (0.76-1.46); GLOMERULAR FILTRATION RATE > 60.0 (>60); GLUCOSE, FASTING 98 MG/DL (70-100); HDL CHOLESTEROL 138 MG/DL (>40); LDL CHOLESTEROL 53 MG/DL (<100); NON-HDL-C 70 MG/DL; POTASSIUM SERUM 3.5 MEQ/L (3.5-5.1); RHEUMATOID FACTOR QUANT < 10.0 IU/ML (<15.0); SODIUM LEVEL 137 MEQ/L (136-145); TOTAL PROTEIN 7.3 GM/DL (6.4-8.2); TRIGLYCERIDES LEVEL 85 MG/DL (<150)
[2020-06-22 12:51] LABS: VITAMIN B12 LEVEL 401 PG/ML (247-911)
[2020-06-22 12:58] LABS: DRVV SCREEN 37.6 SEC
[2020-06-22 13:00] LABS: PTT LUPUS TYPE ANTICOAG SCREEN 0.9 (0-1.2)
[2020-06-23 15:08] LABS: ANTINUCLEAR ANTIBODIES DIRECT Negative (Negative)
== END ==
LOC: M SFHCCLAY 11:19 → M PLALAB 11:19
PROVIDERS: ATTEND Nurse Practitioner Family
DX: M13.89 Other specified arthritis, multiple sites (principal); Z98.0 Intestinal bypass and anastomosis status; F41.1 Generalized anxiety disorder; K21.9 Gastro-esophageal reflux disease without esophagitis; R19.7 Diarrhea, unspecified

== ENCOUNTER → 2020-06-23 | Outpatient (REF) | payer OTHER | LOC: M SFHCCLAY 15:43 | PROVIDERS: ATTEND Nurse Practitioner Family | DX: R06.02 Shortness of breath (principal); J02.9 Acute pharyngitis, unspecified ==

== ENCOUNTER 2020-07-02 20:24 | Emergency (ER) | payer OTHER ==
[~2020-07-02] VITALS: Ht 160 cm; Wt 85.0 kg
[2020-07-02 20:46] LABS: BASO # 0.1 10^3/uL (0.0-0.2); BASO % 0.4 % (0.0-1.0); EOS # 0.4 10^3/uL (0.0-0.5); EOS % 2.4 % (0.0-3.0); HEMATOCRIT 45.7 % (36.0-47.0); HEMOGLOBIN 15.2 g/dl (12.0-15.5); LYMPH % 13.7 % (24.0-44.0); MEAN CORPUSCULAR HEMOGLOBIN 31.9 pg (27.0-33.0); MEAN CORPUSCULAR HGB CONC 33.3 g/dl (32.0-36.5); MEAN CORPUSCULAR VOLUME 95.8 fl (80.0-96.0); MONO # 0.8 10^3/uL (0.0-0.8); MONO % 5.6 % (0.0-5.0); NEUTROPHILS # 11.4 10^3/uL (1.5-8.5); NEUTROPHILS % 77.6 % (36.0-66.0); PLATELET COUNT, AUTOMATED 248 10^3/uL (150-450); RED BLOOD COUNT 4.77 10^6/uL (4.00-5.40); WHITE BLOOD COUNT 14.7 10^3/uL (4.0-10.0)
[2020-07-02] MEDS ORDERED: NS 1,000 ML IV ONE (21:00)
[2020-07-02] MEDS ORDERED: ONDANSETRON 4MG/2ML VIAL IV ONE (21:00)
[2020-07-02 21:28] LABS: ALBUMIN 3.6 GM/DL (3.2-5.2); ALT/SGPT 36 U/L (12-78); BILIRUBIN,DIRECT < 0.1 MG/DL (0.0-0.2); BILIRUBIN,TOTAL 0.3 MG/DL (0.2-1.0); BLOOD UREA NITROGEN 14 MG/DL (7-18); CALCIUM LEVEL 8.5 MG/DL (8.5-10.1); CARBON DIOXIDE LEVEL 22 MEQ/L (21-32); CHLORIDE LEVEL 104 MEQ/L (98-107); CK-MB VALUE MASS 1.4 NG/ML (<3.6); CPK CREATINE PHOSPHOKINASE 55 U/L (26-192); CREATININE FOR GFR 0.74 MG/DL (0.55-1.30); GLOMERULAR FILTRATION RATE > 60.0 (>60); GLUCOSE, FASTING 82 MG/DL (70-100); LIPASE 110 U/L (73-393); MB/CK RELATIVE INDEX 2.55 (< OR =4); POTASSIUM SERUM 4.3 MEQ/L (3.5-5.1); SODIUM LEVEL 139 MEQ/L (136-145); TROPONIN I < 0.02 NG/ML (< 0.10)
--- NOTE | 2020-07-02 21:30 | REPVR ---
PROCEDURE INFORMATION: Exam: XR Chest, 1 View Exam date and time: 07/02/2020 8:55 PM Age: 40 years old Clinical indication: Other: Chest pain TECHNIQUE: Imaging protocol: XR of the chest Views: 1 view. COMPARISON: CR CHEST 2 VIEW 05/19/2018 10:57 AM FINDINGS: Lungs: Unremarkable. No consolidation. Pleural space: Unremarkable. No pleural effusion. No pneumothorax. Heart/Mediastinum: Unremarkable. No cardiomegaly. Bones/joints: There is osteophyte formation of the thoracic spine. IMPRESSION: No acute findings. Electronically signed by: En Bermudez On 07/02/2020 21:30:01 PM
[2020-07-02] MEDS ORDERED: ISOVUE-370 76% 100ML VIAL As Ordered ONE (21:34)
--- NOTE | 2020-07-02 22:35 | REPVR ---
PROCEDURE INFORMATION: Exam: CT Angiography Chest With Contrast Exam date and time: 07/02/2020 9:42 PM Age: 40 years old Clinical indication: Chest pain; Additional info: Chest pain, SOB TECHNIQUE: Imaging protocol: Computed tomographic angiography of the chest with intravenous contrast. 3D rendering (Not supervised by radiologist): MIP and/or 3D reconstructed images were created by the technologist. Radiation optimization: All CT scans at this facility use at least one of these dose optimization techniques: automated exposure control; mA and/or kV adjustment per patient size (includes targeted exams where dose is matched to clinical indication); or iterative reconstruction. Contrast material: ISOVUE 370; Contrast volume: 75 ml; Contrast route: INTRAVENOUS (IV); COMPARISON: CR PORTABLE CHEST X-RAY 07/02/2020 8:54 PM FINDINGS: Pulmonary arteries: There is opacification of the pulmonary arteries with no evidence of pulmonary embolus. Aorta: There is opacification of the aorta which appears intact. Thyroid: Normal thyroid. Lungs: Clear appearing lungs. Pleural space: There is no evidence of pneumothorax or pleural effusion. Heart: The heart is normal in size and there is no pericardial effusion. Lymph nodes: Unremarkable. No enlarged lymph nodes. Liver: There is moderate fatty infiltration of the liver. Stomach and bowel: Patient is status post gastric bypass surgery. Bones/joints: Unremarkable. No acute fracture. Soft tissues: Unremarkable. IMPRESSION: No evidence of pulmonary embolus and the aorta appears intact. Electronically signed by: En Bermudez On 07/02/2020 22:35:02 PM
[2020-07-02 23:42] LABS: CK-MB VALUE MASS < 1.0 NG/ML (<3.6); CPK CREATINE PHOSPHOKINASE 65 U/L (26-192); MB/CK RELATIVE INDEX 1.54 (< OR =4); TROPONIN I < 0.02 NG/ML (< 0.10)
[2020-07-02 23:45] VITALS: BP 118/62
--- NOTE | 2020-07-03 06:38 | ECGEPIP ---
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
--- NOTE | 2020-07-03 06:41 | ECGEPIP ---
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
== END 2020-07-03 00:05 | disposition home or self-care (01) ==
LOC: M ED 20:24
DX: R07.89 Other chest pain (principal); R94.31 Abnormal electrocardiogram [ECG] [EKG]; J45.909 Unspecified asthma, uncomplicated; E78.5 Hyperlipidemia, unspecified; M79.7 Fibromyalgia; K21.9 Gastro-esophageal reflux disease without esophagitis; F41.9 Anxiety disorder, unspecified; F33.9 Major depressive disorder, recurrent, unspecified; F17.200 Nicotine dependence, unspecified, uncomplicated; Z79.51 Long term (current) use of inhaled steroids; Z79.899 Other long term (current) drug therapy; Z88.8 Allergy status to other drugs, medicaments and biological substances; Z87.11 Personal history of peptic ulcer disease; Z87.09 Personal history of other diseases of the respiratory system; Z98.0 Intestinal bypass and anastomosis status; Z83.49 Family history of other endocrine, nutritional and metabolic diseases
CPT/HCPCS: 71045; 71275; 80048; 80076; 82550; 82553; 83690; 85025; 93005; 93041; 94760; 96374; 99285; J2405; Q9967

== ENCOUNTER → 2020-08-03 | Outpatient (REF) | payer OTHER ==
[~2020-08-03] MED LIST changes: -MONT10TA4 PO; +MONT5TAB2 PO
[2020-08-03 16:55] LABS: FOLLICLE STIMULATING HORMONE 12.6 mIU/mL; LUTEINIZING HORMONE 7.3 mIU/mL
== END ==
LOC: M SFHCCLAY 14:22
PROVIDERS: ATTEND Nurse Practitioner Family
DX: R61 Generalized hyperhidrosis (principal)

== ENCOUNTER → 2020-09-19 | Outpatient (CLI) | payer OTHER ==
[~2020-09-19] MED LIST changes: +GABA-282 PO; -GABA-843 PO; +MONT10TA10 PO; -MONT5TAB2 PO
--- NOTE | 2020-09-23 04:10 | ECWPNPC ---
PATIENT NAME: ADRIENNE AYALA : 1980 GENDER: FEMALE VISIT DATE: 09/19/2020 DISCHARGE DATE: 09/19/20 1411 VISIT LOCKED DATE TIME: PHYSICIAN: JACOB BOLTON PHYSICIAN PAGER NO: ACTIVE RESOURCE: JACOB BOLTON REASON FOR APPOINTMENT 1. FIBROMYALGIA HISTORY OF PRESENT ILLNESS DEPRESSION SCREENING: PHQ-9 LITTLE INTEREST OR PLEASURE IN DOING THINGSSEVERAL DAYS FEELING DOWN, DEPRESSED, OR HOPELESSSEVERAL DAYS TROUBLE FALLING OR STAYING ASLEEP, OR SLEEPING TOO MUCHNEARLY EVERY DAY FEELING TIRED OR HAVING LITTLE ENERGYMORE THAN HALF THE DAYS POOR APPETITE OR OVEREATING SEVERAL DAYS FEELING BAD ABOUT YOURSELF-OR THAT YOU ARE A FAILURE OR HAVE LET YOURSELF OR YOUR FAMILY DOWN NEARLY EVERY DAY TROUBLE CONCENTRATING ON THINGS, SUCH READING THE NEWSPAPER OR WATCHING TELEVISION SEVERAL DAYS MOVING OR SPEAKING SO SLOWLY THAT OTHER PEOPLE COULD HAVE NOTICED. OR THE OPPOSITE- BEING SO FIDGETY OR RESTLESS THAT YOU HAVE BEEN MOVING AROUND A LOT MORE THAN USUALSEVERAL DAYS THOUGHTS THAT YOU WOULD BE BETTER OFF , OR OF HURTING YOURSELF IN SOME WAY?NOT AT ALL TOTAL SCORE:13 INTERPRETATIONMODERATE DEPRESSION PHQ-2 (2015 EDITION) LITTLE INTEREST OR PLEASURE IN DOING THINGS?SEVERAL DAYS FEELING DOWN, DEPRESSED, OR HOPELESS?SEVERAL DAYS TOTAL SCORE2 GENERAL: PLEASANT 40-YEAR-OLD FEMALE BEING REFERRED BY GIUSEPPE SCHMIDT FOR EVALUATION OF CHRONIC PAIN ASSOCIATED WITH FIBROMYALGIA. APPEARS VERY UNCOMFORTABLE TODAY. APPARENTLY THIS MORNING SHE WOKE UP WITH A SEVERE RIGHT SHOULDER PAIN. PATIENT STATES SHE FEELS SHE DISLOCATED SHOULDER ALTHOUGH SHE DENIES ANY INJURY. SHE WILL BE HAVING THIS EVALUATED AT THE EMERGENCY ROOM WHEN SHE LEAVES. LONG HISTORY OF GENERALIZED PAIN DIAGNOSED WITH FIBROMYALGIA APPROXIMATE 7 YEARS AGO. HAS BEEN ON GABAPENTIN 300 MG 3 TIMES A DAY AND CYMBALTA 100 MG DAILY FOR SEVERAL YEARS. SUFFERS FROM TREMORS AND FOLLOWS WITH NEUROLOGY. THEY ARE RECOMMENDING AND HAVE REDUCED CYMBALTA TO 60 MG DAILY. PATIENT USES TIZANIDINE 4 MG PERIODICALLY FOR SEVERE PAIN EPISODES BUT DOESN'T LIKE TO TAKE IT IT MAKES HER FEEL FATIGUED. IN GENERAL DOES NOT LIKE TO TAKE MEDICATIONS. FINDS PAIN DISABLING. REPORTS NIGHTTIME AWAKENINGS DUE TO PAIN. DENIES SUDDEN WEIGHT LOSS. DENIES BOWEL OR BLADDER INCONTINENCE.- - -. FALL RISK SCREENING: SCREENING :TWO OR MORE FALLS WITHOUT INJURY IN THE PAST YEAR PAIN SCREENING: PATIENT HAS A COMPLAINT OF ACUTE OR CHRONIC PAIN :YES LOCATION OF PAIN:NECK, BOTH SHOULDERS, MID BACK, LOW BACK, LEFT HIP, RIGHT HIP INTENSITY OF PAIN (SCALE OF 1 TO 10):9 WHAT DOES YOUR PAIN FEEL LIKE:THROBBING DURATION:CONTINOUS, CONSTANT, ALL DAY PAIN IS INCREASED BY:ACTIVITIES PAIN IS DECREASED BY:USE OF PAIN MEDICATIONS NURSING NOTE: - - -. PAIN CENTER INTAKE QUESTIONS: DO YOU HAVE A HISTORY OF MRSA? :NO DO YOU TAKE A BLOOD THINNERS? :NO DO YOU HAVE ANY BLEEDING DISORDERS? :NO ANY NEW NUMBNESS OR WEAKNESS IN YOUR LEGS OR ARMS? :YES RIGHT SHOULDER ANY PACEMAKER,DEFIBRILLATOR, OR DORSAL COLUMN STIMULATOR? :NO DO YOU HAVE ANY RASHES OR OPEN SORES? :NO ARE YOU ALLERGIC TO IV DYE? :NO ARE YOU DIABETIC? :NO ANY NEW PROBLEMS WITH YOUR MEDICATIONS? :NO HAVE YOU RECEIVED A VACCINE IN THE PAST 30 DAYS? :YES IF SO WHAT VACCINE AND WHEN? FLU VACCINE DO YOU PLAN TO RECEIVE A VACCINE IN THE NEXT 21 DAYS? :NO DO YOU NEED ANY PRESCRIPTION? :NO DO YOU TAKE ANY IMMUNOSUPPRESSIVE MEDICATIONS? :NO CURRENT MEDICATIONS TAKING VITAMIN C 500 MG TABLET 1 TABLET ORALLY ONCE A DAY TAKING ZINC 50 MG TABLET 1 TABLET ORALLY ONCE A DAY TAKING OMEPRAZOLE 40 MG CAPSULE DELAYED RELEASE 1 CAPSULE 30 MINUTES BEFORE MORNING MEAL ORALLY BID TAKING LORATADINE 10 MG TABLET 1 TABLET ORALLY ONCE A DAY TAKING ARNUITY ELLIPTA 100 MCG/ACT AEROSOL POWDER BREATH ACTIVATED 1 PUFF INHALATION ONCE A DAY, NOTES: NOT USING DUE TO THRUSH TAKING GABAPENTIN 300 MG CAPSULE 1 CAPSULE ORALLY TID TAKING TIZANIDINE HCL 4 MG TABLET 1 CAPSULE NEEDED ORALLY THREE TIMES A DAY PRN TAKING MONTELUKAST SODIUM 10 MG TABLET 1 TABLET ORALLY ONCE A DAY TAKING DULOXETINE HCL 60 MG CAPSULE DELAYED RELEASE PARTICLES 1 CAPSULE ORALLY ONCE A DAY TAKING VENTOLIN HFA 108 (90 BASE) MCG/ACT AEROSOL SOLUTION 1 PUFF NEEDED INHALATION EVERY 4 HRS TAKING RA SALINE SOLUTION - SOLUTION DIRECTED NEBULIZE 1 AMPULE Q4H NEEDED TAKING ALBUTEROL SULFATE HFA 108 (90 BASE) MCG/ACT AEROSOL SOLUTION 1 PUFF NEEDED INHALATION EVERY 4 HRS, NOTES: SEE ABOVE TAKING VITAMIN B-12 500 MCG TABLET 1 TABLET ORALLY ONCE A DAY TAKING VITAMIN D-[address] 25 MCG (1000 UT) TABLET 1 TABLET ORALLY ONCE A DAY TAKING ONDANSETRON HCL 8 MG TABLET 1 TABLET ORALLY EVERY 8 HOURS PRN TAKING PRIMIDONE 50 MG TABLET DIRECTED ORALLY 1/2 TAB BID X 7 DAYS, THEN 1 TAB BID TAKING HYDROXYZINE HCL 25 MG TABLET 1 TABLET NEEDED ORALLY EVERY 8 HRS NEEDED NOT-TAKING DOXYCYCLINE HYCLATE 100 MG CAPSULE 1 CAPSULE ORALLY EVERY 12 HRS NOT-TAKING PREDNISONE 20 MG TABLET 2 TABLETS ORALLY ONCE A DAY NOT-TAKING ZITHROMAX Z-NATALIA 250 MG TABLET 2 TABLET ON THE FIRST DAY, THEN 1 TABLET DAILY FOR 4 DAYS ORALLY ONCE A DAY NOT-TAKING OMEPRAZOLE 40 MG CAPSULE DELAYED RELEASE 1 CAPSULE ORALLY TWICE A DAY NOT-TAKING ALBUTEROL SULFATE HFA 108 (90 BASE) MCG/ACT AEROSOL SOLUTION INHALE TWO PUFFS BY MOUTH EVERY 4 HOURS NEEDED MEDICATION LIST REVIEWED AND RECONCILED WITH THE PATIENT PAST MEDICAL HISTORY ASTHMA FIBROMYALGIA OBESITY, STATUS POST GASTRIC BYPASS 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 OVARIAN CYST HISTORY OF VITAMIN B DEFICIENCY ALLERGIC RHINITIS HYPERTRIGLYERIDEMIA ANXIETY AND DEPRESSION ALLERGIES IBUPROFEN: GASTRIC BI-PASS - CONTRAINDICATION SURGICAL HISTORY CLEFT LIP/ PALLET REPAIR 1982 C-CESTION 2001, 2007 HYSTERECTOMY, SPARED OVARIES 2014 PLANTAR FASCIAL RELEASE ON THE RIGHT 2014 GASTRIC BYPASS 2016 SEPTOPLASTY 11/2017 FAMILY HISTORY FATHER: ALIVE 61 YRS MOTHER: ALIVE 60 YRS, KIDNEY ISSUES - ONE REMOVED , DX WITH CUSHINGS DISEASE,AUTOIMMUNE DISEASE SIBLINGS: ALIVE 29 YRS, DIAGNOSED WITH UNSPECIFIED NONPSYCHOTIC MENTAL DISORDER FOLLOWING ORGANIC BRAIN DAMAGE SON(S): ALIVE 19 YRS DAUGHTER(S): ALIVE 13 YRS 1 BROTHER(S) - HEALTHY. 1 SON(S) , 1 DAUGHTER(S) - HEALTHY. SOCIAL HISTORY GENERAL: TOBACCO USE ARE YOU A:CURRENT SMOKER ARE YOU INTERESTED IN QUITTING?READY TO QUIT COUNSELED THE PATIENT ON TOBACCO USE, CESSATION [id number]/08/2021 HOW MANY CIGARETTES A DAY DO YOU SMOKE?11-20 HOW OFTEN DO YOU SMOKE CIGARETTES?EVERY DAY PATIENT COUNSELED ON THE DANGERS OF TOBACCO USE AND URGED TO QUIT:09/19/2020 SMOKING CESSATION INFORMATION GIVEN09/19/2020 LATEX QUESTIONNAIRE LATEX ALLERGY : HAVE YOU EVER DEVELOPED ANY TYPE OF REACTION AFTER HANDLING LATEX PRODUCTS SUCH RUBBER GLOVES, CONDOMS, DIAPHRAGMS, BALLOONS, SOCKS, OR UNDERWEAR?NO LATEX ALLERGY : HAVE YOU EVER DEVELOPED ANY TYPE OF REACTION DURING OR AFTER DENTAL APPOINTMENT, VAGINAL/RECTAL EXAMINATION, SURGICAL PROCEDURE, OR ANY OTHER EXPOSURE?NO LATEX RISK : HAVE YOU EVER HAD ANY DIFFICULTY BREATHING OR HIVES AFTER EATING OR HANDLING ANY FRUITS, OR VEGETABLES; SUCH KIWI, BANANAS, STONE FRUITS, OR CHESTNUTSNO LATEX RISK : DO YOU HAVE A PREVIOUS PERSONAL HISTORY OF MORE THAN NINE SURGERIES, SPINA BIFIDA, OR REPEATED CATHERIZATIONS? NO LATEX RISK : ARE YOU FREQUENTLY EXPOSED TO LATEX PRODUCTS IN YOUR OCCUPATION?NO DATE ASKED : 09/19/2020 ALCOHOL USE: YES. LUNG CANCER SCREENING SMOKING STATUS:CURRENT SMOKER BMI CARE GOAL FOLLOW-UP ABOVE NORMAL BMI FOLLOW-UPDIETARY MANAGEMENT EDUCATION, GUIDANCE, AND COUNSELING ALCOHOL SCREENING DID YOU HAVE A DRINK CONTAINING ALCOHOL IN THE PAST YEAR?YES HOW OFTEN DID YOU HAVE SIX OR MORE DRINKS ON ONE OCCASION IN THE PAST YEAR?NEVER (0 POINTS) HOW MANY DRINKS DID YOU HAVE ON A TYPICAL DAY WHEN YOU WERE DRINKING IN THE PAST YEAR?1 OR 2 (0 POINTS) HOW OFTEN DID YOU HAVE A DRINK CONTAINING ALCOHOL IN THE PAST YEAR?TWO TO FOUR TIMES A MONTH (2 POINTS) POINTS2 INTERPRETATIONNEGATIVE RECREATIONAL DRUG USE DRUG USE?NO CAFFEINE CAFFEINE USE?YES HOW OFTEN AND HOW MUCH? 1-2 DAILY SEXUAL HX HAD SEX IN THE LAST 12 MONTHS (VAGINAL, ORAL, OR ANAL)?YES HAVE YOU EVER HAD AN STD?NO HIV / HEP-C SCREENING HIV TEST OFFERED TO PATIENT:YES DATE OFFERED:01/25/2017 TEST ACCEPTED:NO REASON:PATIENT DECLINED TENRIISM [id number] RESTORATION LANGUAGE LANGUAGES SPOKEN:FAROESE EDUCATION LEVEL OF EDUCATION:NOT FINISHED COLLEGE LEARNING BARRIERS / SPECIAL NEEDS CHANGE FROM LAST VISIT?YES BARRIERS TO LEARNING?NO HEARING IMPAIRED?NO VISION IMPAIRED?NO COGNITIVELY IMPAIRED?NO READINESS TO LEARN?YES LEARNING PREFERENCES?NO LEARNING CAPABILITIES PRESENT?YES EMOTIONAL BARRIERS?NO SPECIAL DEVICES?NO BUILDING PRESSURE WASHER NEEDED?NO DOMESTIC VIOLENCE STATUS: 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 DIET: REGULAR. EXERCISE: NONE SECONDARY TO PAIN. MARITAL STATUS: , 2 CHILDREN. OTHERS AT HOME: CHILDREN, FOSTER SON. - HAS THE PATIENT BEEN EDUCATED REGARDING HIS/HER PLAN OF CARE?YES HAS THE PATIENT BEEN EDUCATED REGARDING PAIN, THE RISK FOR PAIN, THE IMPORTANCE OF EFFECTIVE PAIN MANAGEMENT, AND THE PAIN ASSESSMENT PROCESS?YES ADVANCE DIRECTIVE ADVANCE DIRECTIVE DISCUSSED WITH PATIENT:YES PARK AYALA-AUNT/ HCP [phone] HOSPITALIZATION/MAJOR DIAGNOSTIC PROCEDURE SURGERIES ABOVE POST SEPTOPLASTY 11/2017 REVIEW OF SYSTEMS CONSTITUTIONAL: ANY RECENT FEVER NO . CHILLS NO . WEIGHT CHANGE OF UNKNOWN REASONS NO . GASTROENTEROLOGY: NEW UNEXPLAINABLE CHANGES IN BOWEL CONTROL NO . CONSTIPATION NO . GENITOURINARY: ANY NEW CHANGE IN BLADDER CONTROL? NO . NEUROLOGY: NEW ONSET DIZZINESS OR NEUROLOGICAL CHANGES NOT MENTIONED NO . NEW NUMBNESS OR PAIN PATTERNS NOT MENTIONED AND PERTINENT TO TODAY'S VISIT NO . CARDIOLOGY: NEW CHEST PRESSURE NO . NEW CHEST PAIN NO . RESPIRATORY: UNEXPLAINABLE COUGH NO . NEW SHORTNESS OF BREATH NO . VITAL SIGNS WT 185 LBS, HT 63 IN, BMI 32.77 INDEX, BP 127/79 MM HG, HR 106 /MIN, RR 18 /MIN, TEMP 96.7 F, OXYGEN SAT % 98%, SAFE IN ENV? (Y/N) YES, NA INITIALS NH 13:28T.DELIA KOTHARI. EXAMINATION GENERAL EXAMINATION: GENERALNO ACUTE DISTRESS, WELL NOURISHED AND HYDRATED. PSYCHAPPROPRIATE MOOD AND AFFECT . FACE:UNREMARKABLE. NECK:NO LYMPHADENOPATHY. LUNGS:CLEAR TO AUSCULTATION BILATERALLY, NO WHEEZES, RHONCHI, RALES. HEART:NO MURMURS, REGULAR RATE AND RHYTHM. BACK:MULTIPLE AREAS OF TENDER SPOTS BILATERALLY PARASPINAL REGION INDICATIVE OF FIBROMYALGIA . MUSCULOSKELETAL: MUSCLE STRENGTH TESTING 5/5 BILATERAL LOWER EXTREMITIES MULTIPLE AREAS OF TENDER SPOTS INDICATIVE OF FIBROMYALGIA. LUMBAR:SPECIFIC RIGHT SACROILIAC JOINT PAIN WITH PALPATION . ASSESSMENTS FIBROMYALGIA - M79.7 (PRIMARY) TREATMENT FIBROMYALGIA CONTINUE GABAPENTIN CAPSULE, 300 MG, 1 CAPSULE, ORALLY, TID CONTINUE TIZANIDINE HCL TABLET, 4 MG, 1 CAPSULE NEEDED, ORALLY, THREE TIMES A DAY PRN START LYRICA CAPSULE, 75 MG, 1 CAPSULE, ORALLY, BID, 30 DAYS, 60 CAPSULE, REFILLS 2 NOTES: PATIENT IS ADVISED TO START A WALKING PROGRAM EVERY OTHER DAY FOR 10 MINUTES ON A FLAT SURFACE. ADVISED TO USE HOT SHOWERS/BATH NEEDED. PATIENT HAS BEEN ON BOTH GABAPENTIN AND CYMBALTA OVER THE PAST FEW YEARS WITHOUT IMPROVEMENT IN HER PAIN CONTROL. RECOMMEND STARTING LYRICA 75 MG TWICE A DAY. FOLLOW-UP IS SCHEDULED IN 2 MONTHS. PRINTED INFORMATION ON LYRICA FOR PATIENT RICHARD KOTHARI. PROCEDURE CODES FA211 ESTABILISHED PATIENT [facility] FAC[facility] CHARGE DISPOSITION & COMMUNICATION FOLLOW UP 8-10 WKS (REASON: FOLLOW-UP AFTER STARTING LYRICA/FIBROMYALGIA) ELECTRONICALLY SIGNED BY JACOB CHIN, GIUSEPPE ON 09/22/2020 AT 08:05 PM EST DISCLAIMER : THIS IS A VISIT SUMMARY EXTRACTED FROM THE [email or web address] CHART. IT IS NOT A COPY OF THE [email or web address] PROGRESS NOTE. CINDY
== END ==
LOC: M PAIN 13:00
PROVIDERS: ATTEND Nurse Practitioner Family
DX: M79.7 Fibromyalgia (principal); J45.909 Unspecified asthma, uncomplicated; F17.210 Nicotine dependence, cigarettes, uncomplicated; Z86.59 Personal history of other mental and behavioral disorders; Z98.84 Bariatric surgery status; Z88.6 Allergy status to analgesic agent; Z79.51 Long term (current) use of inhaled steroids; Z79.899 Other long term (current) drug therapy

== ENCOUNTER 2020-09-30 02:24 | Emergency (ER) | payer OTHER ==
[~2020-09-30] VITALS: Ht 160 cm; Wt 91.0 kg
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
--- OUTSIDE RECORDS SUMMARY | 2020-09-30 02:29 | CCD ---
Author Author [facility] Organization [facility] Address Unknown Phone Unavailable Care Team Providers Care Truck Manager Name Role Phone Omari Oleary Unavailable PROBLEMS Type Condition ICD9-CM Code [id number] Code Onset Dates Condition S tatus SNOMED Code Notes Problem Essential tremor G25.0 Active 410573142 ALLERGIES Allergen (clinical drug ingredient) Drug/Non Drug Allergy do cumented on EMR Reaction Allergy Type Onset Date Status ibuprofen Ibuprofen([facility] Code:[address]-99) Unknown Drug Allergy Active ENCOUNTERS from 1982 to 2020-09-07 Encounter Location Date Provider Diagnosis [facility] [address] [address] Aug, Omari Mamta Essential tremor G25.0 IMMUNIZATIONS No Information SOCIAL HISTORY Tobacco Use: Social History Observation Description Date Details (start date - stop date) Current Smoker Sex Assigned At : Social History Observation Description Sex Assigned At Unknown Tobacco Use/Smoking Question Answer Notes Patient is a current smoker How many cigarettes a day do you smoke? 11-20 How often do you smoke cigarettes? every day REASON FOR REFERRAL No Information VITAL SIGNS Height 5'3" in Aug, Weight 188 lbs Aug, BMI 33.30 kg/m2 Aug, Heart Rate 90 /min Aug, Oximetry 97 % Aug, Blood pressure systolic 116 mm Hg Aug, Blood pressure diastolic 76 mm Hg Aug, MEDICATIONS Medication SIG (Take, Route, Frequency, Duration) Notes Start Da te End Date Status Multivitamin Adults 50+ - as directed Orally Active Gabapentin 100 MG 1 capsule Orally three timesa day Active Vitamin B12 1000 MCG 1 tablet Orally Once a day for 30 day(s) Active Primidone 50 MG 1 tablet Orally twice a day Active Ondansetron 8 MG 1 tablet on the tongue and a llow to dissolve as needed Orally Once a day for 30 day(s) Active Vitamin D 50 MCG (2000 UT) 1 capsule Orally Once a day for 30 day(s) Active HydrOXYzine HCl 25 MG 1 tablet as needed Orally every 8 hrs for 30 da y(s) Active Loratadine 10 MG 1 tablet Orally Once a day for 30 day(s) Active Omeprazole 40 MG 1 capsule 30 minutes before morning meal Orally twice a day Active Ventolin HFA 108 (90 Base) MCG/ACT 1 puff as needed Inhalation ever y 4 hrs Active Tizanidine HCl 4 MG 1 tablet as needed Orally Three times a day Active Vitamin C 500 MG 1 tablet Orally Once a day for 30 day(s) Active Duloxetine HCl 60 MG 1 capsule Orally Once a day for 30 day(s) Active Zinc 50 MG 1 tablet Orally Once a day for 30 day(s) Active Doxycycline Hyclate 100 MG 1 capsule Orally Once a day for 10 day(s) Active Arnuity Ellipta 100 MCG/ACT 1 puff Inhalation Once a day Active Montelukast Sodium 10 MG 1 tablet Orally Once a day for 30 day(s) Active Duloxetine HCl 20 MG 2 capsule Orally once a day Active PROCEDURES No Information RESULTS No Results REASON FOR VISIT This 40-year-old woman was referred for the evaluation of tremor. MEDICAL (GENERAL) HISTORY Type Description Date Medical History Gastric ulcer with gastritis Medical History Plantar fasciitis Medical History Other bursitis of hip, right hip Medical History Other bursitis of hip, left hip Medical History ovarian cyst Medical History History of vitamin B deficiency Medical History allergic rhinits Medical History Hypertriglyceridemia Medical History Anxiety and Depression Surgical History Cleft lip/pallet repair 1981 Surgical History 2001, 2007 Surgical History Hysterectomy, spared ovaries 2013 Surgical History Plantar fascial release on the right 201 5 Surgical History Gastric Bypass 2016 Surgical History Septoplasty 2018 Goals Section No Information Health Concerns No Information MEDICAL EQUIPMENT No Information MENTAL STATUS No Information FUNCTIONAL STATUS No Information ASSESSMENTS Encounter Date Diagnosis Assessment Notes Treatment Notes Treatm ent Clinical Notes Aug, Essential tremor (ICD-10 - G25.0) PLAN OF TREATMENT Treatment Notes Test Name Order Date TSH Thyroid Stimulating Hormone 2020-09-07 Next Appt Details 10 weeks Reason:tremor Provider Name:Omari Oleary, 2020-11 02:00:00 PM, [address], [place], [address], Follow Up:10 weekstremor Insurance Providers Payer Name Payer Address Payer Phone Insured Name Patient Relati onship to Insured Coverage Start Date Coverage End Date [facility] [address] [facility] [phone] Lonnie Vidal self
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
--- OUTSIDE RECORDS SUMMARY | 2020-09-30 02:30 | CCD ---
Author Author [facility] Organization [facility] Address Unknown Phone Unavailable Support Name Relationship Address Phone [employer] Next Of Kin [address] [place] [address] [employer] Next Of Kin [address] [place] [address] UE Next Of Kin Unknown Unavailable [employer]ELF [employer] Next [place] [address] [place] [address] P[place] Next Of Kin [address] [place] [address] [address] Next Of Kin [address] [place] [address] PREMO, SENTHIL Next Of Kin [address] [place] [address] ROCHELLEHELENEADRIENNE BRAXTON Next Of Kin [address] [place] [address] P[place] AYALA [address] [address] [place] [address] Unavailable Re-disclosure Warning The records that you are about to access may contain information from federally-assisted alcohol or drug abuse programs. If such information is present, then the following federally mandated warning applies: This information has been disclosed to you from records protected by federal confidentiality rules (42 CFR part 2). The federal rules prohibit you from making any further disclosure of this information unless further disclosure is expressly permitted by the written consent of the person to whom it pertains or as otherwise permitted by 42 CFR part 2. A general authorization for the release of medical or other information is NOT sufficient for this purpose. The Federal rules restrict any use of the information to criminally investigate or prosecute any alcohol or drug abuse patient.The records that you are about to access may contain highly sensitive health information, the redisclosure of which is protected by Article 27-F of the [facility] Public Health law. If you continue you may have access to information: Regarding HIV / AIDS; Provided by facilities licensed or operated by the [facility] Office of Mental Health; or Provided by the [facility] Office for People With Developmental Disabilities. If such information is present, then the following [facility] mandated warning applies: This information has been disclosed to you from confidential records which are protected by state law. State law prohibits you from making any further disclosure of this information without the specific written consent of the person to whom it pertains, or as otherwise permitted by law. Any unauthorized further disclosure in violation of state law may result in a fine or fpc sentence or both. A general authorization for the release of medical or other information is NOT sufficient authorization for further disc losure. Allergies and Adverse Reactions Type Description Substance Reaction Status Data Source(s ) Drug allergy Ibuprofen Ibuprofen Gastric bi-pass Active eCW1 ( [facility]) Family History Family Member Name Family Member Gender Family Member Status Date o f Status Description Data Source(s) Unknown Unknown Problem MEDENT ([facility], ) Aunt Maternal Dx age late 20s Encounters Encounter Providers Location Date Indications Data Source(s ) Outpatient [address] [facility] [place] [address] 09/19/2020 12:00:00 AM EST eCW1 ([facility]) Unknown [address] [facility] [id number] 09/14/2020 12:00:00 AM EST eCW1 ([facility]) Outpatient [address] [facility] [address] [place] [address] 09/05/2020 12:00:00 AM EST eCW1 ([facility]) Unknown [address] [facility] [place] [address] 09/05/2020 12:00:00 AM EST eCW1 ([facility]) Unknown [address] [facility] [place] [address] 08/31/2020 12:00:00 AM EST eCW1 ([facility]) Unknown [address] [facility] [place] [address] 08/09/2020 12:00:00 AM EST eCW1 ([facility]) [place] [address] [facility] [place] [address] 08/04/2020 12:00:00 AM EST eCW1 ([facility]) [place] [address] [facility] [place] [address] 08/04/2020 12:00:00 AM EST eCW1 ([facility]) [place] [address] [facility] [place] [address] 08/03/2020 12:00:00 AM EST eCW1 ([facility]) [place] [address] [facility] [place] [address] 07/28/2020 12:00:00 AM EST eCW1 ([facility]) [place] [address] [facility] [place] [address] 07/17/2020 12:00:00 AM EST eCW1 ([facility]) [place] [address] [facility] [place] [address] 07/06/2020 12:00:00 AM EST eCW1 ([facility]) [place] [address] [facility] [place] [address] 07/04/2020 12:00:00 AM EST eCW1 ([facility]) [place] [address] [facility] [place] [address] 06/23/2020 12:00:00 AM EST eCW1 ([facility]) [place] [address] [facility] [place] [address] 06/23/2020 12:00:00 AM EST eCW1 ([facility]) [place] [address] [facility] [place] [address] 05/31/2020 12:00:00 AM EDT eCW1 ([facility]) [place] [address] [facility] [place] [address] 01/15/2020 12:00:00 AM EDT eCW1 ([facility]) [facility] [address] [place] [address] 11/16/2019 12:00:00 AM EDT [facility]CW1 [facility] [place] [address] [facility] [place] [address] 11/13/2019 12:00:00 AM EDT eCW1 ([facility]) [facility] [place] [address] [facility] [place] [address] 11/13/2019 12:00:00 AM EDT eCW1 ([facility]) [facility] [place] [address] [facility] [place] [address] 11/11/2019 12:00:00 AM EDT eCW1 ([facility]) [address] [address] 10/12/2019 12:00:00 AM EST eCW1 ([facility]) [address] [address] 09/30/2019 12:00:00 AM EST eCW1 ([facility]) [facility] [address] [place] [address] 09/16/2019 12:00:00 AM EST eCW1 ([facility]) Immunizations Vaccine Date Status Description Data Source(s) influenza, recombinant, quadrIvalent,injectable, prese rvative free 08/03/2020 02:03:00 PM EST completed eCW1 ([facility]) influenza, recombinant, quadrIvalent,injectable, prese rvative free 08/03/2020 02:03:00 PM EST completed eCW1 ([facility]) influenza, recombinant, quadrIvalent,injectable, prese rvative free 08/03/2020 02:03:00 PM EST completed eCW1 ([facility]) influenza, recombinant, quadrIvalent,injectable, prese rvative free 08/03/2020 02:03:00 PM EST completed eCW1 ([facility]) influenza, recombinant, quadrIvalent,injectable, prese rvative free 08/03/2020 02:03:00 PM EST completed eCW1 ([facility]) influenza, recombinant, quadrIvalent,injectable, prese rvative free 08/03/2020 02:03:00 PM EST completed eCW1 ([facility]) influenza, recombinant, quadrIvalent,injectable, prese rvative free 08/03/2020 02:03:00 PM EST completed eCW1 ([facility]) influenza, recombinant, quadrIvalent,injectable, prese rvative free 08/03/2020 02:03:00 PM EST completed eCW1 ([facility]) Medications Medication Brand Name Start Date Product Form Dose Route Admi nistrative Instructions Pharmacy Instructions Status Indications Reaction Description Data Source(s) pregabalin 75 MG Oral Capsule [Lyrica] Lyrica 75 MG Lyrica 7 5 MG 09/19/2020 12:00:00 AM EST 1.0 {capsule} active L yrica 75 MG eCW1 ([facility]) Albuterol Sulfate HFA 108 (90 Base) MCG/ACT Albuterol Sulfate HFA 108 (90 Base) MCG/ACT 08/08/2020 12:00:00 AM EST 1.0 {puff_as_needed} active Albuterol Sulfate HFA 108 (90 Base) MCG/ACT eCW1 ([facility]) Albuterol Sulfate HFA 108 (90 Base) MCG/ACT Albuterol Sulfate HFA 108 (90 Base) MCG/ACT 08/08/2020 12:00:00 AM EST 1.0 {puff_as_needed} active Albuterol Sulfate HFA 108 (90 Base) MCG/ACT eCW1 ([facility]) Albuterol Sulfate HFA 108 (90 Base) MCG/ACT Albuterol Sulfate HFA 108 (90 Base) MCG/ACT 08/08/2020 12:00:00 AM EST 1.0 {puff_as_needed} active Albuterol Sulfate HFA 108 (90 Base) MCG/ACT eCW1 ([facility]) Albuterol Sulfate HFA 108 (90 Base) MCG/ACT Albuterol Sulfate HFA 108 (90 Base) MCG/ACT 08/08/2020 12:00:00 AM EST 1.0 {puff_as_needed} active Albuterol Sulfate HFA 108 (90 Base) MCG/ACT eCW1 ([facility]) Albuterol Sulfate HFA 108 (90 Base) MCG/ACT Albuterol Sulfate HFA 108 (90 Base) MCG/ACT 08/08/2020 12:00:00 AM EST 1.0 {puff_as_needed} active Albuterol Sulfate HFA 108 (90 Base) MCG/ACT eCW1 ([facility]) Albuterol Sulfate HFA 108 (90 Base) MCG/ACT Albuterol Sulfate HFA 108 (90 Base) MCG/ACT 08/08/2020 12:00:00 AM EST 1.0 {puff_as_needed} active Albuterol Sulfate HFA 108 (90 Base) MCG/ACT eCW1 ([facility]) Albuterol Sulfate HFA 108 (90 Base) MCG/ACT Albuterol Sulfate HFA 108 (90 Base) MCG/ACT 08/08/2020 12:00:00 AM EST 1.0 {puff_as_needed} active Albuterol Sulfate HFA 108 (90 Base) MCG/ACT eCW1 ([facility]) RA Saline Solution - RA Saline Solution - 08/03/2020 12:00:00 AM EST active RA Saline Solution - eCW1 ([facility]) RA Saline Solution - RA Saline Solution - 08/03/2020 12:00:00 AM EST active RA Saline Solution - eCW1 ([facility]) Hydroxyzine Hydrochloride 25 MG Oral Tablet HydrOXYzin e HCl 25 MG HydrOXYzine HCl 25 MG 08/03/2020 12:00:00 AM EST 1.0 {tablet_as_needed} active HydrOXYzine HCl 25 MG eCW1 ([facility]) RA Saline Solution - RA Saline Solution - 08/03/2020 12:00:00 AM EST active RA Saline Solution - eCW1 ([facility]) RA Saline Solution - RA Saline Solution - 08/03/2020 12:00:00 AM EST active RA Saline Solution - eCW1 ([facility]) RA Saline Solution - RA Saline Solution - 08/03/2020 12:00:00 AM EST active RA Saline Solution - eCW1 ([facility]) RA Saline Solution - RA Saline Solution - 08/03/2020 12:00:00 AM EST active RA Saline Solution - eCW1 ([facility]) Hydroxyzine Hydrochloride 25 MG Oral Tablet HydrOXYzin e HCl 25 MG HydrOXYzine HCl 25 MG 08/03/2020 12:00:00 AM EST 1.0 {tablet_as_needed} active HydrOXYzine HCl 25 MG eCW1 ([facility]) Hydroxyzine Hydrochloride 25 MG Oral Tablet HydrOXYzin e HCl 25 MG HydrOXYzine HCl 25 MG 08/03/2020 12:00:00 AM EST 1.0 {tablet_as_needed} active HydrOXYzine HCl 25 MG eCW1 ([facility]) Hydroxyzine Hydrochloride 25 MG Oral Tablet HydrOXYzin e HCl 25 MG HydrOXYzine HCl 25 MG 08/03/2020 12:00:00 AM EST 1.0 {tablet_as_needed} active HydrOXYzine HCl 25 MG eCW1 ([facility]) Hydroxyzine Hydrochloride 25 MG Oral Tablet HydrOXYzin e HCl 25 MG HydrOXYzine HCl 25 MG 08/03/2020 12:00:00 AM EST 1.0 {tablet_as_needed} active HydrOXYzine HCl 25 MG eCW1 ([facility]) Hydroxyzine Hydrochloride 25 MG Oral Tablet HydrOXYzin e HCl 25 MG HydrOXYzine HCl 25 MG 08/03/2020 12:00:00 AM EST 1.0 {tablet_as_needed} active HydrOXYzine HCl 25 MG eCW1 ([facility]) RA Saline Solution - RA Saline Solution - 08/03/2020 12:00:00 AM EST active RA Saline Solution - eCW1 ([facility]) RA Saline Solution - RA Saline Solution - 08/03/2020 12:00:00 AM EST active RA Saline Solution - eCW1 ([facility]) Hydroxyzine Hydrochloride 25 MG Oral Tablet HydrOXYzin e HCl 25 MG HydrOXYzine HCl 25 MG 08/03/2020 12:00:00 AM EST 1.0 {tablet_as_needed} active HydrOXYzine HCl 25 MG eCW1 ([facility]) Hydroxyzine Hydrochloride 25 MG Oral Tablet HydrOXYzin e HCl 25 MG HydrOXYzine HCl 25 MG 08/03/2020 12:00:00 AM EST 1.0 {tablet_as_needed} active HydrOXYzine HCl 25 MG eCW1 ([facility]) Primidone 50 MG Oral Tablet Primidone 50 MG 07/06/2020 12:00:00 AM EST active Primidone 50 MG eCW1 ([facility]) Primidone 50 MG Oral Tablet Primidone 50 MG 07/06/2020 12:00:00 AM EST active Primidone 50 MG eCW1 ([facility]) Primidone 50 MG Oral Tablet Primidone 50 MG 07/06/2020 12:00:00 AM EST active Primidone 50 MG eCW1 ([facility]) Primidone 50 MG Oral Tablet Primidone 50 MG 07/06/2020 12:00:00 AM EST active Primidone 50 MG eCW1 ([facility]) Primidone 50 MG Oral Tablet Primidone 50 MG 07/06/2020 12:00:00 AM EST active Primidone 50 MG eCW1 ([facility]) Primidone 50 MG Oral Tablet Primidone 50 MG 07/06/2020 12:00:00 AM EST active Primidone 50 MG eCW1 ([facility]) Primidone 50 MG Oral Tablet Primidone 50 MG 07/06/2020 12:00:00 AM EST active Primidone 50 MG eCW1 ([facility]) Primidone 50 MG Oral Tablet Primidone 50 MG 07/06/2020 12:00:00 AM EST active Primidone 50 MG eCW1 ([facility]) Primidone 50 MG Oral Tablet Primidone 50 MG 07/06/2020 12:00:00 AM EST active Primidone 50 MG eCW1 ([facility]) doxycycline hyclate 100 MG Oral Capsule Doxycycline Hy clate 100 MG Doxycycline Hyclate 100 MG 07/04/2020 12:00:00 AM EST 1.0 {capsule} active Doxycycline Hyclate 100 MG eCW1 ([facility]) doxycycline hyclate 100 MG Oral Capsule Doxycycline Hy clate 100 MG Doxycycline Hyclate 100 MG 07/04/2020 12:00:00 AM EST 1.0 {capsule} suspended Doxycycline Hyclate 100 MG eCW1 ([facility]) doxycycline hyclate 100 MG Oral Capsule Doxycycline Hy clate 100 MG Doxycycline Hyclate 100 MG 07/04/2020 12:00:00 AM EST 1.0 {capsule} active Doxycycline Hyclate 100 MG eCW1 ([facility]) doxycycline hyclate 100 MG Oral Capsule Doxycycline Hy clate 100 MG Doxycycline Hyclate 100 MG 07/04/2020 12:00:00 AM EST 1.0 {capsule} active Doxycycline Hyclate 100 MG eCW1 ([facility]) doxycycline hyclate 100 MG Oral Capsule Doxycycline Hy clate 100 MG Doxycycline Hyclate 100 MG 07/04/2020 12:00:00 AM EST 1.0 {capsule} active Doxycycline Hyclate 100 MG eCW1 ([facility]) doxycycline hyclate 100 MG Oral Capsule Doxycycline Hy clate 100 MG Doxycycline Hyclate 100 MG 07/04/2020 12:00:00 AM EST 1.0 {capsule} active Doxycycline Hyclate 100 MG eCW1 ([facility]) doxycycline hyclate 100 MG Oral Capsule Doxycycline Hy clate 100 MG Doxycycline Hyclate 100 MG 07/04/2020 12:00:00 AM EST 1.0 {capsule} suspended Doxycycline Hyclate 100 MG eCW1 ([facility]) doxycycline hyclate 100 MG Oral Capsule Doxycycline Hy clate 100 MG Doxycycline Hyclate 100 MG 07/04/2020 12:00:00 AM EST 1.0 {capsule} active Doxycycline Hyclate 100 MG eCW1 ([facility]) doxycycline hyclate 100 MG Oral Capsule Doxycycline Hy clate 100 MG Doxycycline Hyclate 100 MG 07/04/2020 12:00:00 AM EST 1.0 {capsule} active Doxycycline Hyclate 100 MG eCW1 ([facility]) doxycycline hyclate 100 MG Oral Capsule Doxycycline Hy clate 100 MG Doxycycline Hyclate 100 MG 07/04/2020 12:00:00 AM EST 1.0 {capsule} active Doxycycline Hyclate 100 MG eCW1 ([facility]) doxycycline hyclate 100 MG Oral Capsule Doxycycline Hy clate 100 MG Doxycycline Hyclate 100 MG 07/04/2020 12:00:00 AM EST 1.0 {capsule} suspended Doxycycline Hyclate 100 MG eCW1 ([facility]) doxycycline hyclate 100 MG Oral Capsule Doxycycline Hy clate 100 MG Doxycycline Hyclate 100 MG 07/04/2020 12:00:00 AM EST 1.0 {capsule} active Doxycycline Hyclate 100 MG eCW1 ([facility]) Prednisone 20 MG Oral Tablet PredniSONE 20 MG PredniSONE 20 MG 06/23/2020 12:00:00 AM EST 2.0 {tablets} suspended PredniSONE 20 MG eCW1 ([facility]) Prednisone 20 MG Oral Tablet PredniSONE 20 MG PredniSONE 20 MG 06/23/2020 12:00:00 AM EST 2.0 {tablets} active P redniSONE 20 MG eCW1 ([facility]) Zinc 50 MG Zinc 50 MG 06/23/2020 12:00:00 AM EST 1.0 {tablet} active Zinc 50 MG eCW1 ([facility]) Zithromax Z-Tomer 250 MG Zithromax Z-Tomer 250 MG 06/23/2020 12:00:[address] suspended Zithromax Z-Tomer 250 MG eC W1 ([facility]) Zinc 50 MG Zinc 50 MG 06/23/2020 12:00:00 AM EST 1.0 {tablet} active Zinc 50 MG eCW1 ([facility]) Ascorbic Acid 500 MG Oral Tablet Vitamin C 500 MG Vitamin C 500 MG 06/23/2020 12:00:00 AM EST 1.0 {tablet} active Vi tamin C 500 MG eCW1 ([facility]) Zinc 50 MG Zinc 50 MG 06/23/2020 12:00:00 AM EST 1.0 {tablet} active Zinc 50 MG eCW1 ([facility]) Ascorbic Acid 500 MG Oral Tablet Vitamin C 500 MG Vitamin C 500 MG 06/23/2020 12:00:00 AM EST 1.0 {tablet} active Vi tamin C 500 MG eCW1 ([facility]) Zinc 50 MG Zinc 50 MG 06/23/2020 12:00:00 AM EST 1.0 {tablet} active Zinc 50 MG eCW1 ([facility]) Zithromax Z-Tomer 250 MG Zithromax Z-Tomer 250 MG 06/23/2020 12:00:[address] suspended Zithromax Z-Tomer 250 MG eC W1 ([facility]) Prednisone 20 MG Oral Tablet PredniSONE 20 MG PredniSONE 20 MG 06/23/2020 12:00:00 AM EST 2.0 {tablets} suspended PredniSONE 20 MG eCW1 ([facility]) Zithromax Z-Tomer 250 MG Zithromax Z-Tomer 250 MG 06/23/2020 12:00:[address] suspended Zithromax Z-Tomer 250 MG eC W1 ([facility]) Prednisone 20 MG Oral Tablet PredniSONE 20 MG PredniSONE 20 MG 06/23/2020 12:00:00 AM EST 2.0 {tablets} suspended PredniSONE 20 MG eCW1 ([facility]) Prednisone 20 MG Oral Tablet PredniSONE 20 MG PredniSONE 20 MG 06/23/2020 12:00:00 AM EST 2.0 {tablets} active P redniSONE 20 MG eCW1 ([facility]) Prednisone 20 MG Oral Tablet PredniSONE 20 MG PredniSONE 20 MG 06/23/2020 12:00:00 AM EST 2.0 {tablets} suspended PredniSONE 20 MG eCW1 ([facility]) Ascorbic Acid 500 MG Oral Tablet Vitamin C 500 MG Vitamin C 500 MG 06/23/2020 12:00:00 AM EST 1.0 {tablet} active Vi tamin C 500 MG eCW1 ([facility]) Zithromax Z-Tomer 250 MG Zithromax Z-Tomer 250 MG 06/23/2020 12:00:[address] suspended Zithromax Z-Tomer 250 MG eC W1 ([facility]) Zithromax Z-Tomer 250 MG Zithromax Z-Tomer 250 MG 06/23/2020 12:00:[address] active Zithromax Z-Tomer 250 MG eC W1 ([facility]) Prednisone 20 MG Oral Tablet PredniSONE 20 MG PredniSONE 20 MG 06/23/2020 12:00:00 AM EST 2.0 {tablets} suspended PredniSONE 20 MG eCW1 ([facility]) Zithromax Z-Tomer 250 MG Zithromax Z-Tomer 250 MG 06/23/2020 12:00:[address] active Zithromax Z-Tomer 250 MG eC W1 ([facility]) Prednisone 20 MG Oral Tablet PredniSONE 20 MG PredniSONE 20 MG 06/23/2020 12:00:00 AM EST 2.0 {tablets} suspended PredniSONE 20 MG eCW1 ([facility]) Ascorbic Acid 500 MG Oral Tablet Vitamin C 500 MG Vitamin C 500 MG 06/23/2020 12:00:00 AM EST 1.0 {tablet} active Vi tamin C 500 MG eCW1 ([facility]) Prednisone 20 MG Oral Tablet PredniSONE 20 MG PredniSONE 20 MG 06/23/2020 12:00:00 AM EST 2.0 {tablets} suspended PredniSONE 20 MG eCW1 ([facility]) Zinc 50 MG Zinc 50 MG 06/23/2020 12:00:00 AM EST 1.0 {tablet} active Zinc 50 MG eCW1 ([facility]) Ascorbic Acid 500 MG Oral Tablet Vitamin C 500 MG Vitamin C 500 MG 06/23/2020 12:00:00 AM EST 1.0 {tablet} active Vi tamin C 500 MG eCW1 ([facility]) Zinc 50 MG Zinc 50 MG 06/23/2020 12:00:00 AM EST 1.0 {tablet} active Zinc 50 MG eCW1 ([facility]) Zithromax Z-Tomer 250 MG Zithromax Z-Tomer 250 MG 06/23/2020 12:00:[address] suspended Zithromax Z-Tomer 250 MG eC W1 ([facility]) Zinc 50 MG Zinc 50 MG 06/23/2020 12:00:00 AM EST 1.0 {tablet} active Zinc 50 MG eCW1 ([facility]) Zinc 50 MG Zinc 50 MG 06/23/2020 12:00:00 AM EST 1.0 {tablet} active Zinc 50 MG eCW1 ([facility]) Ascorbic Acid 500 MG Oral Tablet Vitamin C 500 MG Vitamin C 500 MG 06/23/2020 12:00:00 AM EST 1.0 {tablet} active Vi tamin C 500 MG eCW1 ([facility]) Ascorbic Acid 500 MG Oral Tablet Vitamin C 500 MG Vitamin C 500 MG 06/23/2020 12:00:00 AM EST 1.0 {tablet} active Vi tamin C 500 MG eCW1 ([facility]) Zithromax Z-Tomer 250 MG Zithromax Z-Tomer 250 MG 06/23/2020 12:00:[address] suspended Zithromax Z-Tomer 250 MG eC W1 ([facility]) Prednisone 20 MG Oral Tablet PredniSONE 20 MG PredniSONE 20 MG 06/23/2020 12:00:00 AM EST 2.0 {tablets} suspended PredniSONE 20 MG eCW1 ([facility]) Zithromax Z-Tomer 250 MG Zithromax Z-Tomer 250 MG 06/23/2020 12:00:[address] suspended Zithromax Z-Tomer 250 MG eC W1 ([facility]) Ascorbic Acid 500 MG Oral Tablet Vitamin C 500 MG Vitamin C 500 MG 06/23/2020 12:00:00 AM EST 1.0 {tablet} active Vi tamin C 500 MG eCW1 ([facility]) Zinc 50 MG Zinc 50 MG 06/23/2020 12:00:00 AM EST 1.0 {tablet} active Zinc 50 MG eCW1 ([facility]) Ascorbic Acid 500 MG Oral Tablet Vitamin C 500 MG Vitamin C 500 MG 06/23/2020 12:00:00 AM EST 1.0 {tablet} active Vi tamin C 500 MG eCW1 ([facility]) Ascorbic Acid 500 MG Oral Tablet Vitamin C 500 MG Vitamin C 500 MG 06/23/2020 12:00:00 AM EST 1.0 {tablet} active Vi tamin C 500 MG eCW1 ([facility]) Zithromax Z-Tomer 250 MG Zithromax Z-Tomer 250 MG 06/23/2020 12:00:[address] suspended Zithromax Z-Tomer 250 MG eC W1 ([facility]) Zinc 50 MG Zinc 50 MG 06/23/2020 12:00:00 AM EST 1.0 {tablet} active Zinc 50 MG eCW1 ([facility]) Zinc 50 MG Zinc 50 MG 06/23/2020 12:00:00 AM EST 1.0 {tablet} active Zinc 50 MG eCW1 ([facility]) Zithromax Z-Tomer 250 MG Zithromax Z-Tomer 250 MG 06/23/2020 12:00:[address] suspended Zithromax Z-Tomer 250 MG eC W1 ([facility]) Prednisone 20 MG Oral Tablet PredniSONE 20 MG PredniSONE 20 MG 06/23/2020 12:00:00 AM EST 2.0 {tablets} suspended PredniSONE 20 MG eCW1 ([facility]) Zinc 50 MG Zinc 50 MG 06/23/2020 12:00:00 AM EST 1.0 {tablet} active Zinc 50 MG eCW1 ([facility]) Zinc 50 MG Zinc 50 MG 06/23/2020 12:00:00 AM EST 1.0 {tablet} active Zinc 50 MG eCW1 ([facility]) Prednisone 20 MG Oral Tablet PredniSONE 20 MG PredniSONE 20 MG 06/23/2020 12:00:00 AM EST 2.0 {tablets} active P redniSONE 20 MG eCW1 ([facility]) Zithromax Z-Tomer 250 MG Zithromax Z-Tomer 250 MG 06/23/2020 12:00:[address] suspended Zithromax Z-Tomer 250 MG eC W1 ([facility]) Ascorbic Acid 500 MG Oral Tablet Vitamin C 500 MG Vitamin C 500 MG 06/23/2020 12:00:00 AM EST 1.0 {tablet} active Vi tamin C 500 MG eCW1 ([facility]) Prednisone 20 MG Oral Tablet PredniSONE 20 MG PredniSONE 20 MG 06/23/2020 12:00:00 AM EST 2.0 {tablets} suspended PredniSONE 20 MG eCW1 ([facility]) Ascorbic Acid 500 MG Oral Tablet Vitamin C 500 MG Vitamin C 500 MG 06/23/2020 12:00:00 AM EST 1.0 {tablet} active Vi tamin C 500 MG eCW1 ([facility]) Prednisone 20 MG Oral Tablet PredniSONE 20 MG PredniSONE 20 MG 06/23/2020 12:00:00 AM EST 2.0 {tablets} suspended PredniSONE 20 MG eCW1 ([facility]) Zithromax Z-Tomer 250 MG Zithromax Z-Tomer 250 MG 06/23/2020 12:00:[address] active Zithromax Z-Tomer 250 MG eC W1 ([facility]) Ascorbic Acid 500 MG Oral Tablet Vitamin C 500 MG Vitamin C 500 MG 06/23/2020 12:00:00 AM EST 1.0 {tablet} active Vi tamin C 500 MG eCW1 ([facility]) Zithromax Z-Tomer 250 MG Zithromax Z-Tomer 250 MG 06/23/2020 12:00:[address] suspended Zithromax Z-Tomer 250 MG eC W1 ([facility]) Ascorbic Acid 500 MG Oral Tablet Vitamin C 500 MG Vitamin C 500 MG 06/23/2020 12:00:00 AM EST 1.0 {tablet} active Vi tamin C 500 MG eCW1 ([facility]) Zinc 50 MG Zinc 50 MG 06/23/2020 12:00:00 AM EST 1.0 {tablet} active Zinc 50 MG eCW1 ([facility]) 90 mcg/actuation 10/26/2019 12:00:00 AM EDT HFA aerosol inha ler 18 INHALE TWO PUFFS BY MOUTH EVERY 4 HOURS NEEDED INHALE TWO PUFFS BY MOUTH EVERY 4 HOURS NEEDED SOLD: 10/29/2019 [facility] 300 mg 10/22/2019 12:00:00 AM EDT capsule 270 TAKE ONE CAPSULE BY MOUTH THREE TIMES A DAY TAKE ONE CAPSULE BY MOUTH THREE TIMES A DAY SOLD: 10/24/2019 [facility] doxycycline hyclate 100 MG Oral Capsule Doxycycline Hy clate 100 MG Doxycycline Hyclate 100 MG 10/12/2019 12:00:00 AM EST active 1 capsule eCW1 ([facility]) 8 mg 10/12/2019 12:00:00 AM EST tablet 30 TAKE ONE TABLET BY MOUTH EVERY DAY TAKE ONE TABLET BY MOUTH EVERY DAY SOLD: 10/16/2019 [facility] 100 mg 10/12/2019 12:00:00 AM EST capsule 28 TAKE ONE CAPSULE BY MOUTH TWICE A DAY FOR 14 DAYS TAKE ONE CAPSULE BY MOUTH TWICE A DAY FOR 14 DAYS SOLD : 10/16/2019 [facility] 90 mcg/actuation 09/28/2019 12:00:00 AM EST HFA aerosol inha ler 36 INHALE TWO PUFFS BY MOUTH EVERY 4 HOURS NEEDED INHALE TWO PUFFS BY MOUTH EVERY 4 HOURS NEEDED SOLD: 09/29/2019 [facility] Amoxicillin 875 MG Oral Tablet Amoxicillin 875 MG 09/16/2019 12:00: 00 AM EST active 1 tablet eCW1 ([facility]) 875 mg 09/16/2019 12:00:00 AM EST tablet 10 TAKE ONE TABLET BY MOUTH EVERY 12 HOURS UNTIL GONE TAKE ONE TABLET BY MOUTH EVERY 12 HOURS UNTIL GONE [facility] 90 mcg/actuation 08/10/2019 12:00:00 AM EST HFA aerosol inha ler 18 INHALE TWO PUFFS BY MOUTH EVERY 4 HOURS NEEDED INHALE TWO PUFFS BY MOUTH EVERY 4 HOURS NEEDED SOLD: 08/11/2019 [facility] 40 mg 10/22/2018 12:00:00 AM EDT capsule,delayed release (DR/EC) 60 TAKE ONE CAPSULE BY MOUTH TWICE A DAY TAKE ONE CAPSULE BY MOUTH TWICE A DAY SOLD: 10/24/2019 [facility] Insurance Providers Payer name Policy type / Coverage type Policy ID Covered libertarian ID Covered libertarian's relationship to allred Policy Allred Plan Information [employer] [id number] SP [id number] [facility] [id number] SP [id number] MEDICAID [id number] SP [id number] [facility]-Medicaid [id number] ANS-Medicaid [id number] [facility]-Medicaid [id number] ANS-Medicaid [id number] [facility]-Medicaid [id number] [facility]-Medicaid [id number] ANSI-Medicaid [id number] ANSI-Medicaid [id number] ANSI-Medicaid [id number] ANSI-Medicaid [id number] ANSI-Medicaid [id number] ANSI-Medicaid [id number] ANSI-Medicaid [id number] ANSI-Medicaid [id number] ANSI-Medicaid [id number] ANSI-Medicaid [id number] [employer] MCDHMO [id number] SP [id number] ANSI-Medicaid [id number] [facility] [employer] [facility] (HMO) [id number] Self [id number] [facility](MCAID) O [id number] S [id number] [facility] [employer] (HMO) [id number] Self [id number] ANSI-Medicaid [id number] [employer] [facility] [employer] (HMO) [id number] Self [id number] [employer] [facility] [employer] (HMO) [id number] Self [id number] [facility]rinivas/MCR Health Maintenance Organization (HMO) [id number] Self [id number] [employer] COMM[employer] MCDHMO [id number] SP [id number] [employer] MCDHMO [id number] SP [id number] [facility] [employer] [facility] (HMO) [id number] Self [id number] SELF PAY ONLY [id number] SP [id number] [facility]/MCR Health Maintenance Organization (HMO) Self [employer] Community Plan Commercial Self UHC MEDICAID [id number] Luisa [id number] [facility](MCAID) P UNAVAILABLE S UNAVAILABLE EXCELLUS BCBS P [id number] S [id number] [employer] [id number] 18 [id number] [facility] BL[facility] [id number] 18 [id number] [employer] [place] [employer] [id number] Problems, Conditions, and Diagnoses Code Display Name Description Problem Type Effective Dates Data Source(s) G25.0 661708270 Essential tremor Problem 09/05/2020 12:00:00 AM EST eCW1 ([facility]) F41.0 874894660 Panic attacks Problem 08/03/2020 12:00:00 AM EST eCW1 ([facility]) F41.8 173112240 Anxiety with depression Problem 11/13/2019 1 2:00:00 AM EDT eCW1 ([facility]) F41.9 [id number] Anxiety disorder, unspecified Problem 11/13/2019 12:00:00 AM EDT eCW1 ([facility]) F41.9 [id number] Anxiety disorder, unspecified Problem 11/13/2019 12:00:00 AM EDT eCW1 ([facility]) F41.8 [id number] Anxiety with depression Problem 11/13/2019 1 2:00:00 AM EDT eCW1 ([facility]) Z86.39 Vitamin B deficiency History of vitamin B deficiency P roblem 10/12/2019 12:00:00 AM EST eCW1 ([facility]) Z86.39 Vitamin B deficiency History of vitamin B deficiency P roblem 10/12/2019 12:00:00 AM EST eCW1 ([facility]) Surgeries/Procedures Procedure Description Date Indications Data Source(s) Immunization: Flublok Quadrivalent (18 years & older) 0.5mL IM (Influenza) 08/03/2020 12:00:00 AM EST eCW1 ([facility]) PHYSICIAN TELEPHONE EVALUATION 21-30 MIN 11/13/2019 12 :00:00 AM EDT eCW1 ([facility]) Results ID Date Data Source [facility] EVAL 08/03/2020 12:00:00 AM EST eCW1 ([facility]) Name Value Range Interpretation Code Description Data Shell rce(s) Supporting Document(s) 7.3 eCW1 ([facility]) 12.6 eCW1 ([facility]) ID Date Data Source ESTROGENS TOTAL 08/03/2020 12:00:00 AM EST eCW1 ([facility]) Name Value Range Interpretation Code Description Data Shell rce(s) Supporting Document(s) 254 . eCW1 ([facility]) ID Date Data Source RESPIRATORY PANEL 06/23/2020 12:00:00 AM EST eCW1 ([facility]) Name Value Range Interpretation Code Description Data Shell rce(s) Supporting Document(s) This respiratory PCR panel detects Influenza A H1, H3 and RESPIRATORY PANEL eCW1 ([facility]) ID Date Data Source GATS (NEGATIVE STREP SCREEN) 06/23/2020 12:00:00 AM EST eCW1 ([facility]) Name Value Range Interpretation Code Description Data Shell rce(s) Supporting Document(s) FULL REPORT IN LAB NOTES (eCW and [facility]). GATS CULTURE (NEG STREP SCR) eCW1 ([facility]) ID Date Data Source Rapid Strep (Lexie Strep A+ CESAR) 06/23/2020 12:00:00 AM EST eCW1 ([facility]) Name Value Range Interpretation Code Description Data Shell rce(s) Supporting Document(s) Negative Rapid Strep (Lexie Strep A+ CESAR) eCW1 ([facility]) Yes Internal Controls Perform ed (Y/N) eCW1 ([facility]) Negative Result (Positive/Negative) eCW 1 ([facility]) Procedure Social History Code Duration Value Status Description Data Source(s ) Smoking 09/19/2020 12:00:00 AM EST Current Smoker completed Curre nt Smoker eCW1 ([facility]) Smoking 09/05/2020 12:00:00 AM EST Current Smoker completed Curre nt Smoker eCW1 ([facility]) Smoking 08/09/2020 12:00:00 AM EST Current Smoker completed Curre nt Smoker eCW1 ([facility]) Smoking 08/09/2020 12:00:00 AM EST Current Smoker completed Curre nt Smoker eCW1 ([facility]) Smoking 08/09/2020 12:00:00 AM EST Current Smoker completed Curre nt Smoker eCW1 ([facility]) Smoking 08/09/2020 12:00:00 AM EST Current Smoker completed Curre nt Smoker eCW1 ([facility]) Smoking 08/09/2020 12:00:00 AM EST Current Smoker completed Curre nt Smoker eCW1 ([facility]) Smoking 08/03/2020 12:00:00 AM EST Current Smoker completed Curre nt Smoker eCW1 ([facility]) Smoking 08/03/2020 12:00:00 AM EST Current Smoker completed Curre nt Smoker eCW1 ([facility]) Smoking 07/06/2020 12:00:00 AM EST Current Smoker completed Curre nt Smoker eCW1 ([facility]) Smoking 07/06/2020 12:00:00 AM EST Current Smoker completed Curre nt Smoker eCW1 ([facility]) Smoking 07/06/2020 12:00:00 AM EST Current Smoker completed Curre nt Smoker eCW1 ([facility]) Smoking 06/23/2020 12:00:00 AM EST Current Smoker completed Curre nt Smoker eCW1 ([facility]) Smoking 06/23/2020 12:00:00 AM EST Current Smoker completed Curre nt Smoker eCW1 ([facility]) Smoking 06/23/2020 12:00:00 AM EST Current Smoker completed Curre nt Smoker eCW1 ([facility]) Smoking 11/13/2019 12:00:00 AM EDT Current Smoker completed Curre nt Smoker eCW1 ([facility]) Smoking 11/13/2019 12:00:00 AM EDT Current Smoker completed Curre nt Smoker eCW1 ([facility]) Vital Signs ID Date Data Source UNK Name Value Range Interpretation Code Description Data Source(s) Diastolic blood pressure 79 mm[Hg] 79 mm[Hg] eCW1 ([facility]) Systolic blood pressure 127 mm[Hg] 127 mm[Hg] e CW1 ([facility]) Body temperature 96.7 [degF] 96.7 [degF] eCW1 ( [facility]) Respiratory rate 18 /min 18 /min eCW1 ([facility]) Heart rate 106 /min 106 /min eCW1 ([facility]) Body mass index (BMI) [Ratio] 32.77 kg/m2 32.77 kg/m2 eCW1 ([facility]) Body height 63 [in_i] 63 [in_i] eCW1 ([facility]) Body weight 185 [lb_av] 185 [lb_av] eCW1 ([facility]) Diastolic blood pressure 76 mm[Hg] 76 mm[Hg] eCW1 ([facility]) Systolic blood pressure 116 mm[Hg] 116 mm[Hg] e CW1 ([facility]) Oxygen saturation in Arterial blood by Pulse oximetry 97 % 97 % eCW1 ([facility]) Heart rate 90 /min 90 /min eCW1 ([facility]) Body mass index (BMI) [Ratio] 33.30 kg/m2 33.30 kg/m2 eCW1 ([facility]) Body weight 188 [lb_av] 188 [lb_av] eCW1 ([facility]) Body height [in_i] eCW1 ([facility]) Diastolic blood pressure 80 mm[Hg] 80 mm[Hg] eCW1 ([facility]) Systolic blood pressure 132 mm[Hg] 132 mm[Hg] e CW1 ([facility]) Body temperature 98.6 [degF] 98.6 [degF] eCW1 ( [facility]) Respiratory rate 20 /min 20 /min eCW1 ([facility]) Heart rate 106 /min 106 /min eCW1 ([facility]) Body mass index (BMI) [Ratio] 32.59 kg/m2 32.59 kg/m2 W1 ([facility]) Body height 63 [in_i] 63 [in_i] eCW1 ([facility]) Body weight 184 [lb_av] 184 [lb_av] eCW1 ([facility]) Diastolic blood pressure 72 mm[Hg] 72 mm[Hg] eCW1 ([facility]) Systolic blood pressure 110 mm[Hg] 110 mm[Hg] e CW1 ([facility]) Body temperature 98.6 [degF] 98.6 [degF] eCW1 ( [facility]) Respiratory rate 18 /min 18 /min eCW1 ([facility]) Heart rate 103 /min 103 /min eCW1 ([facility]) Body mass index (BMI) [Ratio] 33.14 kg/m2 33.14 kg/m2 eCW1 ([facility]) Body height 63 [in_i] 63 [in_i] eCW1 ([facility]) Body weight 187.12 [lb_av] 187.12 [lb_av] eCW1 ([facility]) Diastolic blood pressure 82 mm[Hg] 82 mm[Hg] eCW1 ([facility]) Systolic blood pressure 124 mm[Hg] 124 mm[Hg] e CW1 ([facility]) Body temperature 97.9 [degF] 97.9 [degF] eCW1 ( [facility]) Respiratory rate 18 /min 18 /min eCW1 ([facility]) Heart rate 106 /min 106 /min eCW1 ([facility]) Body mass index (BMI) [Ratio] 32.84 kg/m2 32.84 kg/m2 eCW1 ([facility]) Body height 63 [in_i] 63 [in_i] eCW1 ([facility]) Body weight 185.4 [lb_av] 185.4 [lb_av] eCW1 ([facility]) Diastolic blood pressure 77 mm[Hg] 77 mm[Hg] eCW1 ([facility]) Systolic blood pressure 122 mm[Hg] 122 mm[Hg] e CW1 ([facility]) Body temperature 97.8 [degF] 97.8 [degF] eCW1 ( [facility]) Respiratory rate 17 /min 17 /min eCW1 ([facility]) Heart rate 102 /min 102 /min eCW1 ([facility]) Body mass index (BMI) [Ratio] 32.84 kg/m2 32.84 kg/m2 eCW1 ([facility]) Body height 63 [in_us] 63 [in_us] eCW1 ([facility]) Body weight Measured 185.4 [lb_av] 185.4 [lb_av ] eCW1 ([facility]) Diastolic blood pressure 74 mm[Hg] 74 mm[Hg] eCW1 ([facility]) Systolic blood pressure 113 mm[Hg] 113 mm[Hg] e CW1 ([facility]) Body temperature 98.0 [degF] 98.0 [degF] eCW1 ( [facility]) Respiratory rate 18 /min 18 /min eCW1 ([facility]) Heart rate 78 /min 78 /min eCW1 ([facility]) Body weight Measured 183 [lb_av] 183 [lb_av] eC W1 ([facility]) Body mass index (BMI) [Ratio] 32.41 kg/m2 32.41 kg/m2 eCW1 ([facility]) Body height 63 [in_us] 63 [in_us] eCW1 ([facility]) Patient Treatment Plan of Care Planned Activity Planned Date Details Description Data Source (s) pregabalin 75 MG Oral Capsule [Lyrica] 09/19/2020 12:00:00 AM EST eCW1 ([facility]) Albuterol Sulfate HFA 108 (90 Base) MCG/ACT 08/08/2020 12:00:00 AM EST eCW1 ([facility]) Hydroxyzine Hydrochloride 25 MG Oral Tablet 08/03/2020 12:00:00 AM EST eCW1 ([facility]) RA Saline Solution - 08/03/2020 12:00:00 AM EST eCW1 ([facility]) Hydroxyzine Hydrochloride 25 MG Oral Tablet 08/03/2020 12:00:00 AM EST eCW1 ([facility]) RA Saline Solution - 08/03/2020 12:00:00 AM EST eCW1 ([facility]) Hydroxyzine Hydrochloride 25 MG Oral Tablet 08/03/2020 12:00:00 AM EST eCW1 ([facility]) Primidone 50 MG Oral Tablet 07/06/2020 12:00:00 AM EST eCW1 ([facility]) Primidone 50 MG Oral Tablet 07/06/2020 12:00:00 AM EST eCW1 ([facility]) Primidone 50 MG Oral Tablet 07/06/2020 12:00:00 AM EST eCW1 ([facility]) doxycycline hyclate 100 MG Oral Capsule 07/04/2020 12:00:00 AM EST eCW1 ([facility]) doxycycline hyclate 100 MG Oral Capsule 07/04/2020 12:00:00 AM EST eCW1 ([facility]) doxycycline hyclate 100 MG Oral Capsule 07/04/2020 12:00:00 AM EST eCW1 ([facility]) doxycycline hyclate 100 MG Oral Capsule 07/04/2020 12:00:00 AM EST eCW1 ([facility]) Ascorbic Acid 500 MG Oral Tablet 06/23/2020 12:00:00 AM EST eCW1 ([facility]) Zinc 50 MG 06/23/2020 12:00:00 AM EST e CW1 ([facility]) Ascorbic Acid 500 MG Oral Tablet 06/23/2020 12:00:00 AM EST eCW1 ([facility]) Zithromax Z-Tomer 250 MG 06/23/2020 12:00:00 AM EST eCW1 ([facility]) Prednisone 20 MG Oral Tablet 06/23/2020 12:00:00 AM EST eCW1 ([facility]) Zinc 50 MG 06/23/2020 12:00:00 AM EST e CW1 ([facility]) Ascorbic Acid 500 MG Oral Tablet 06/23/2020 12:00:00 AM EST eCW1 ([facility]) Zithromax Z-Tomer 250 MG 06/23/2020 12:00:00 AM EST eCW1 ([facility]) Prednisone 20 MG Oral Tablet 06/23/2020 12:00:00 AM EST eCW1 ([facility]) Zinc 50 MG 06/23/2020 12:00:00 AM EST e CW1 ([facility]) Prednisone 20 MG Oral Tablet 06/23/2020 12:00:00 AM EST eCW1 ([facility]) Zithromax Z-Tomer 250 MG 06/23/2020 12:00:00 AM EST eCW1 ([facility]) doxycycline hyclate 100 MG Oral Capsule 10/12/2019 12:00:00 AM EST eCW1 ([facility]) Amoxicillin 875 MG Oral Tablet 09/16/2019 12:00:00 AM EST eCW1 ([facility])
[2020-09-30] MEDS ORDERED: PREG75CA2 PO (02:56)
[2020-09-30] MEDS ORDERED: HYDR-3363 PO (02:56)
--- OUTSIDE RECORDS SUMMARY | 2020-09-30 03:45 | CCD ---
Author Author [facility] Organization [facility] Address Unknown Phone Unavailable Support Name Relationship Address Phone [employer] Next Of Kin [address] [place] [address] [employer] Next Of Kin [address] [place] [address] UE Next Of Kin Unknown Unavailable SELF EMPLOYED Next [place] [address] [place] [address] P[place] AYALA Next Of Kin [address] [place] [address] [address] Next Of Kin [address] [place] [address] PREMO, SENTHIL Next Of Kin [address] [place] [address] ROCHELLEHELENEADRIENNE BRAXTON Next Of Kin [address] [place] [address] P[place] ECON [address] [place] [address] Unavailable Re-disclosure Warning The records that you [...] is protected by Article 27-F of the [facility] Public Health law. If you continue you may have access to information: Regarding HIV / AIDS; Provided by facilities licensed or operated by the [facility] Office of Mental Health; or Provided by the [facility] Office for People With Developmental Disabilities. If such information is present, then the following [facility] mandated warning applies: This information has [...] law may result in a fine or correction sentence or both. A general authorization for the release of medical or other information is NOT sufficient authorization for further disc losure. Allergies and Adverse Reactions Type Description Substance Reaction Status Data Source(s ) Drug allergy Ibuprofen Ibuprofen Gastric bi-pass Active eCW1 ( [facility]) Family History Family Member Name Family Member Gender Family Member Status Date o f Status Description Data Source(s) Unknown Unknown Problem MEDENT ([facility], ) Aunt Maternal Dx age late 20s Encounters Encounter Providers Location Date Indications Data Source(s ) Outpatient [address] [facility] [place] [address] 09/19/2020 12:00:00 AM EST eCW1 ([facility]) Unknown [address] [facility] [address] 09/14/2020 12:00:00 AM EST eCW1 ([facility]) Outpatient [address] [facility] [address] [place] [address] 09/05/2020 12:00:00 AM EST eCW1 ([facility]) Unknown [address] [facility] [place] [address] 09/05/2020 12:00:00 AM EST eCW1 ([facility]) Unknown [address] [facility] [place] [address] 08/31/2020 12:00:00 AM EST eCW1 ([facility]) Unknown [address] [facility] [place] [address] 08/09/2020 12:00:00 AM EST eCW1 ([facility]) [place] [address] [facility] [place] [address] 08/04/2020 12:00:00 AM EST eCW1 ([facility]) [place] [address] [facility] [place] [address] 08/04/2020 12:00:00 AM EST eCW1 ([facility]) [place] [address] [facility] [place] [address] 08/03/2020 12:00:00 AM EST eCW1 ([facility]) [place] [address] [facility] [place] [address] 07/28/2020 12:00:00 AM EST eCW1 ([facility]) [place] [address] [facility] [place] [address] 07/17/2020 12:00:00 AM EST eCW1 ([facility]) [place]patient [address] [facility] [place] [address] 07/06/2020 12:00:00 AM EST eCW1 ([facility]) [place] [address] [facility] [place] [address] 07/04/2020 12:00:00 AM EST eCW1 ([facility]) [place]patient [address] [facility] [place] [address] 06/23/2020 12:00:00 AM EST eCW1 ([facility]) [place] [address] [facility] [place] [address] 06/23/2020 12:00:00 AM EST eCW1 ([facility]) [place] [address] [facility] [place] [address] 05/31/2020 12:00:00 AM EDT eCW1 ([facility]) [place] [address] [facility] [place] [address] 01/15/2020 12:00:00 AM EDT eCW1 ([facility]) [facility] [address] [place] [address] 11/16/2019 12:00:00 AM EDT eCW1 [facility] [place] [address] [facility] [place] [address] 11/13/2019 12:00:00 AM EDT eCW1 ([facility]) [facility] [place] [address] [facility] [place] [address] 11/13/2019 12:00:00 AM EDT eCW1 ([facility]) [facility] [place] [address] [facility] [place] [address] 11/11/2019 12:00:00 AM EDT eCW1 ([facility]) [address] [address] 10/12/2019 12:00:00 AM EST eCW1 ([facility]) [address] [address] 09/30/2019 12:00:00 AM EST eCW1 ([facility]) [facility] [address] [place] [address] 09/16/2019 12:00:00 AM EST eCW1 ([facility]) Immunizations Vaccine Date Status Description Data Source(s) influenza, recombinant, quadrIvalent,injectable, prese rvative free 08/03/2020 02:03:00 PM EST completed eCW1 ([facility]) influenza, recombinant, quadrIvalent,injectable, prese rvative free 08/03/2020 02:03:00 PM EST completed eCW1 ([facility]) influenza, recombinant, quadrIvalent,injectable, prese rvative free 08/03/2020 02:03:00 PM EST completed eCW1 ([facility]) influenza, recombinant, quadrIvalent,injectable, prese rvative free 08/03/2020 02:03:00 PM EST completed eCW1 ([facility]) influenza, recombinant, quadrIvalent,injectable, prese rvative free 08/03/2020 02:03:00 PM EST completed eCW1 ([facility]) influenza, recombinant, quadrIvalent,injectable, prese rvative free 08/03/2020 02:03:00 PM EST completed eCW1 ([facility]) influenza, recombinant, quadrIvalent,injectable, prese rvative free 08/03/2020 02:03:00 PM EST completed eCW1 ([facility]) influenza, recombinant, quadrIvalent,injectable, prese rvative free 08/03/2020 02:03:00 PM EST completed eCW1 ([facility]) Medications Medication Brand Name Start Date Product Form Dose Route Admi nistrative Instructions Pharmacy Instructions Status Indications Reaction Description Data Source(s) pregabalin 75 MG Oral Capsule [Lyrica] Lyrica 75 MG Lyrica 7 5 MG 09/19/2020 12:00:00 AM EST 1.0 {capsule} active L yrica 75 MG eCW1 ([facility]) Albuterol Sulfate HFA 108 (90 Base) MCG/ACT Albuterol Sulfate HFA 108 (90 Base) MCG/ACT 08/08/2020 12:00:00 AM EST 1.0 {puff_as_needed} active Albuterol Sulfate HFA 108 (90 Base) MCG/ACT eCW1 ([facility]) Albuterol Sulfate HFA 108 (90 Base) MCG/ACT Albuterol Sulfate HFA 108 (90 Base) MCG/ACT 08/08/2020 12:00:00 AM EST 1.0 {puff_as_needed} active Albuterol Sulfate HFA 108 (90 Base) MCG/ACT eCW1 ([facility]) Albuterol Sulfate HFA 108 (90 Base) MCG/ACT Albuterol Sulfate HFA 108 (90 Base) MCG/ACT 08/08/2020 12:00:00 AM EST 1.0 {puff_as_needed} active Albuterol Sulfate HFA 108 (90 Base) MCG/ACT eCW1 ([facility]) Albuterol Sulfate HFA 108 (90 Base) MCG/ACT Albuterol Sulfate HFA 108 (90 Base) MCG/ACT 08/08/2020 12:00:00 AM EST 1.0 {puff_as_needed} active Albuterol Sulfate HFA 108 (90 Base) MCG/ACT eCW1 ([facility]) Albuterol Sulfate HFA 108 (90 Base) MCG/ACT Albuterol Sulfate HFA 108 (90 Base) MCG/ACT 08/08/2020 12:00:00 AM EST 1.0 {puff_as_needed} active Albuterol Sulfate HFA 108 (90 Base) MCG/ACT eCW1 ([facility]) Albuterol Sulfate HFA 108 (90 Base) MCG/ACT Albuterol Sulfate HFA 108 (90 Base) MCG/ACT 08/08/2020 12:00:00 AM EST 1.0 {puff_as_needed} active Albuterol Sulfate HFA 108 (90 Base) MCG/ACT eCW1 ([facility]) Albuterol Sulfate HFA 108 (90 Base) MCG/ACT Albuterol Sulfate HFA 108 (90 Base) MCG/ACT 08/08/2020 12:00:00 AM EST 1.0 {puff_as_needed} active Albuterol Sulfate HFA 108 (90 Base) MCG/ACT eCW1 ([facility]) RA Saline Solution - RA Saline Solution - 08/03/2020 12:00:00 AM EST active RA Saline Solution - eCW1 ([facility]) RA Saline Solution - RA Saline Solution - 08/03/2020 12:00:00 AM EST active RA Saline Solution - eCW1 ([facility]) Hydroxyzine Hydrochloride 25 MG Oral Tablet HydrOXYzin e HCl 25 MG HydrOXYzine HCl 25 MG 08/03/2020 12:00:00 AM EST 1.0 {tablet_as_needed} active HydrOXYzine HCl 25 MG eCW1 ([facility]) RA Saline Solution - RA Saline Solution - 08/03/2020 12:00:00 AM EST active RA Saline Solution - eCW1 ([facility]) RA Saline Solution - RA Saline Solution - 08/03/2020 12:00:00 AM EST active RA Saline Solution - eCW1 ([facility]) RA Saline Solution - RA Saline Solution - 08/03/2020 12:00:00 AM EST active RA Saline Solution - eCW1 ([facility]) RA Saline Solution - RA Saline Solution - 08/03/2020 12:00:00 AM EST active RA Saline Solution - eCW1 ([facility]) Hydroxyzine Hydrochloride 25 MG Oral Tablet HydrOXYzin e HCl 25 MG HydrOXYzine HCl 25 MG 08/03/2020 12:00:00 AM EST 1.0 {tablet_as_needed} active HydrOXYzine HCl 25 MG eCW1 ([facility]) Hydroxyzine Hydrochloride 25 MG Oral Tablet HydrOXYzin e HCl 25 MG HydrOXYzine HCl 25 MG 08/03/2020 12:00:00 AM EST 1.0 {tablet_as_needed} active HydrOXYzine HCl 25 MG eCW1 ([facility]) Hydroxyzine Hydrochloride 25 MG Oral Tablet HydrOXYzin e HCl 25 MG HydrOXYzine HCl 25 MG 08/03/2020 12:00:00 AM EST 1.0 {tablet_as_needed} active HydrOXYzine HCl 25 MG eCW1 ([facility]) Hydroxyzine Hydrochloride 25 MG Oral Tablet HydrOXYzin e HCl 25 MG HydrOXYzine HCl 25 MG 08/03/2020 12:00:00 AM EST 1.0 {tablet_as_needed} active HydrOXYzine HCl 25 MG eCW1 ([facility]) Hydroxyzine Hydrochloride 25 MG Oral Tablet HydrOXYzin e HCl 25 MG HydrOXYzine HCl 25 MG 08/03/2020 12:00:00 AM EST 1.0 {tablet_as_needed} active HydrOXYzine HCl 25 MG eCW1 ([facility]) RA Saline Solution - RA Saline Solution - 08/03/2020 12:00:00 AM EST active RA Saline Solution - eCW1 ([facility]) RA Saline Solution - RA Saline Solution - 08/03/2020 12:00:00 AM EST active RA Saline Solution - eCW1 ([facility]) Hydroxyzine Hydrochloride 25 MG Oral Tablet HydrOXYzin e HCl 25 MG HydrOXYzine HCl 25 MG 08/03/2020 12:00:00 AM EST 1.0 {tablet_as_needed} active HydrOXYzine HCl 25 MG eCW1 ([facility]) Hydroxyzine Hydrochloride 25 MG Oral Tablet HydrOXYzin e HCl 25 MG HydrOXYzine HCl 25 MG 08/03/2020 12:00:00 AM EST 1.0 {tablet_as_needed} active HydrOXYzine HCl 25 MG eCW1 ([facility]) Primidone 50 MG Oral Tablet Primidone 50 MG 07/06/2020 12:00:00 AM EST active Primidone 50 MG eCW1 ([facility]) Primidone 50 MG Oral Tablet Primidone 50 MG 07/06/2020 12:00:00 AM EST active Primidone 50 MG eCW1 ([facility]) Primidone 50 MG Oral Tablet Primidone 50 MG 07/06/2020 12:00:00 AM EST active Primidone 50 MG eCW1 ([facility]) Primidone 50 MG Oral Tablet Primidone 50 MG 07/06/2020 12:00:00 AM EST active Primidone 50 MG eCW1 ([facility]) Primidone 50 MG Oral Tablet Primidone 50 MG 07/06/2020 12:00:00 AM EST active Primidone 50 MG eCW1 ([facility]) Primidone 50 MG Oral Tablet Primidone 50 MG 07/06/2020 12:00:00 AM EST active Primidone 50 MG eCW1 ([facility]) Primidone 50 MG Oral Tablet Primidone 50 MG 07/06/2020 12:00:00 AM EST active Primidone 50 MG eCW1 ([facility]) Primidone 50 MG Oral Tablet Primidone 50 MG 07/06/2020 12:00:00 AM EST active Primidone 50 MG eCW1 ([facility]) Primidone 50 MG Oral Tablet Primidone 50 MG 07/06/2020 12:00:00 AM EST active Primidone 50 MG eCW1 ([facility]) doxycycline hyclate 100 MG Oral Capsule Doxycycline Hy clate 100 MG Doxycycline Hyclate 100 MG 07/04/2020 12:00:00 AM EST 1.0 {capsule} active Doxycycline Hyclate 100 MG eCW1 ([facility]) doxycycline hyclate 100 MG Oral Capsule Doxycycline Hy clate 100 MG Doxycycline Hyclate 100 MG 07/04/2020 12:00:00 AM EST 1.0 {capsule} suspended Doxycycline Hyclate 100 MG eCW1 ([facility]) doxycycline hyclate 100 MG Oral Capsule Doxycycline Hy clate 100 MG Doxycycline Hyclate 100 MG 07/04/2020 12:00:00 AM EST 1.0 {capsule} active Doxycycline Hyclate 100 MG eCW1 ([facility]) doxycycline hyclate 100 MG Oral Capsule Doxycycline Hy clate 100 MG Doxycycline Hyclate 100 MG 07/04/2020 12:00:00 AM EST 1.0 {capsule} active Doxycycline Hyclate 100 MG eCW1 ([facility]) doxycycline hyclate 100 MG Oral Capsule Doxycycline Hy clate 100 MG Doxycycline Hyclate 100 MG 07/04/2020 12:00:00 AM EST 1.0 {capsule} active Doxycycline Hyclate 100 MG eCW1 ([facility]) doxycycline hyclate 100 MG Oral Capsule Doxycycline Hy clate 100 MG Doxycycline Hyclate 100 MG 07/04/2020 12:00:00 AM EST 1.0 {capsule} active Doxycycline Hyclate 100 MG eCW1 ([facility]) doxycycline hyclate 100 MG Oral Capsule Doxycycline Hy clate 100 MG Doxycycline Hyclate 100 MG 07/04/2020 12:00:00 AM EST 1.0 {capsule} suspended Doxycycline Hyclate 100 MG eCW1 ([facility]) doxycycline hyclate 100 MG Oral Capsule Doxycycline Hy clate 100 MG Doxycycline Hyclate 100 MG 07/04/2020 12:00:00 AM EST 1.0 {capsule} active Doxycycline Hyclate 100 MG eCW1 ([facility]) doxycycline hyclate 100 MG Oral Capsule Doxycycline Hy clate 100 MG Doxycycline Hyclate 100 MG 07/04/2020 12:00:00 AM EST 1.0 {capsule} active Doxycycline Hyclate 100 MG eCW1 ([facility]) doxycycline hyclate 100 MG Oral Capsule Doxycycline Hy clate 100 MG Doxycycline Hyclate 100 MG 07/04/2020 12:00:00 AM EST 1.0 {capsule} active Doxycycline Hyclate 100 MG eCW1 ([facility]) doxycycline hyclate 100 MG Oral Capsule Doxycycline Hy clate 100 MG Doxycycline Hyclate 100 MG 07/04/2020 12:00:00 AM EST 1.0 {capsule} suspended Doxycycline Hyclate 100 MG eCW1 ([facility]) doxycycline hyclate 100 MG Oral Capsule Doxycycline Hy clate 100 MG Doxycycline Hyclate 100 MG 07/04/2020 12:00:00 AM EST 1.0 {capsule} active Doxycycline Hyclate 100 MG eCW1 ([facility]) Prednisone 20 MG Oral Tablet PredniSONE 20 MG PredniSONE 20 MG 06/23/2020 12:00:00 AM EST 2.0 {tablets} suspended PredniSONE 20 MG eCW1 ([facility]) Prednisone 20 MG Oral Tablet PredniSONE 20 MG PredniSONE 20 MG 06/23/2020 12:00:00 AM EST 2.0 {tablets} active P redniSONE 20 MG eCW1 ([facility]) Zinc 50 MG Zinc 50 MG 06/23/2020 12:00:00 AM EST 1.0 {tablet} active Zinc 50 MG eCW1 ([facility]) Zithromax Z-Tomer 250 MG Zithromax Z-Tomer 250 MG 06/23/2020 12:00:[address] suspended Zithromax Z-Tomer 250 MG eC W1 ([facility]) Zinc 50 MG Zinc 50 MG 06/23/2020 12:00:00 AM EST 1.0 {tablet} active Zinc 50 MG eCW1 ([facility]) Ascorbic Acid 500 MG Oral Tablet Vitamin C 500 MG Vitamin C 500 MG 06/23/2020 12:00:00 AM EST 1.0 {tablet} active Vi tamin C 500 MG eCW1 ([facility]) Zinc 50 MG Zinc 50 MG 06/23/2020 12:00:00 AM EST 1.0 {tablet} active Zinc 50 MG eCW1 ([facility]) Ascorbic Acid 500 MG Oral Tablet Vitamin C 500 MG Vitamin C 500 MG 06/23/2020 12:00:00 AM EST 1.0 {tablet} active Vi tamin C 500 MG eCW1 ([facility]) Zinc 50 MG Zinc 50 MG 06/23/2020 12:00:00 AM EST 1.0 {tablet} active Zinc 50 MG eCW1 ([facility]) Zithromax Z-Tomer 250 MG Zithromax Z-Tomer 250 MG 06/23/2020 12:00:[address] suspended Zithromax Z-Tomer 250 MG eC W1 ([facility]) Prednisone 20 MG Oral Tablet PredniSONE 20 MG PredniSONE 20 MG 06/23/2020 12:00:00 AM EST 2.0 {tablets} suspended PredniSONE 20 MG eCW1 ([facility]) Zithromax Z-Tomer 250 MG Zithromax Z-Tomer 250 MG 06/23/2020 12:00:[address] suspended Zithromax Z-Tomer 250 MG eC W1 ([facility]) Prednisone 20 MG Oral Tablet PredniSONE 20 MG PredniSONE 20 MG 06/23/2020 12:00:00 AM EST 2.0 {tablets} suspended PredniSONE 20 MG eCW1 ([facility]) Prednisone 20 MG Oral Tablet PredniSONE 20 MG PredniSONE 20 MG 06/23/2020 12:00:00 AM EST 2.0 {tablets} active P redniSONE 20 MG eCW1 ([facility]) Prednisone 20 MG Oral Tablet PredniSONE 20 MG PredniSONE 20 MG 06/23/2020 12:00:00 AM EST 2.0 {tablets} suspended PredniSONE 20 MG eCW1 ([facility]) Ascorbic Acid 500 MG Oral Tablet Vitamin C 500 MG Vitamin C 500 MG 06/23/2020 12:00:00 AM EST 1.0 {tablet} active Vi tamin C 500 MG eCW1 ([facility]) Zithromax Z-Tomer 250 MG Zithromax Z-Tomer 250 MG 06/23/2020 12:00:[address] suspended Zithromax Z-Tomer 250 MG eC W1 ([facility]) Zithromax Z-Tomer 250 MG Zithromax Z-Tomer 250 MG 06/23/2020 12:00:[address] active Zithromax Z-Tomer 250 MG eC W1 ([facility]) Prednisone 20 MG Oral Tablet PredniSONE 20 MG PredniSONE 20 MG 06/23/2020 12:00:00 AM EST 2.0 {tablets} suspended PredniSONE 20 MG eCW1 ([facility]) Zithromax Z-Tomer 250 MG Zithromax Z-Tomer 250 MG 06/23/2020 12:00:[address] active Zithromax Z-Tomer 250 MG eC W1 ([facility]) Prednisone 20 MG Oral Tablet PredniSONE 20 MG PredniSONE 20 MG 06/23/2020 12:00:00 AM EST 2.0 {tablets} suspended PredniSONE 20 MG eCW1 ([facility]) Ascorbic Acid 500 MG Oral Tablet Vitamin C 500 MG Vitamin C 500 MG 06/23/2020 12:00:00 AM EST 1.0 {tablet} active Vi tamin C 500 MG eCW1 ([facility]) Prednisone 20 MG Oral Tablet PredniSONE 20 MG PredniSONE 20 MG 06/23/2020 12:00:00 AM EST 2.0 {tablets} suspended PredniSONE 20 MG eCW1 ([facility]) Zinc 50 MG Zinc 50 MG 06/23/2020 12:00:00 AM EST 1.0 {tablet} active Zinc 50 MG eCW1 ([facility]) Ascorbic Acid 500 MG Oral Tablet Vitamin C 500 MG Vitamin C 500 MG 06/23/2020 12:00:00 AM EST 1.0 {tablet} active Vi tamin C 500 MG eCW1 ([facility]) Zinc 50 MG Zinc 50 MG 06/23/2020 12:00:00 AM EST 1.0 {tablet} active Zinc 50 MG eCW1 ([facility]) Zithromax Z-Tomer 250 MG Zithromax Z-Tomer 250 MG 06/23/2020 12:00:[address] suspended Zithromax Z-Tomer 250 MG eC W1 ([facility]) Zinc 50 MG Zinc 50 MG 06/23/2020 12:00:00 AM EST 1.0 {tablet} active Zinc 50 MG eCW1 ([facility]) Zinc 50 MG Zinc 50 MG 06/23/2020 12:00:00 AM EST 1.0 {tablet} active Zinc 50 MG eCW1 ([facility]) Ascorbic Acid 500 MG Oral Tablet Vitamin C 500 MG Vitamin C 500 MG 06/23/2020 12:00:00 AM EST 1.0 {tablet} active Vi tamin C 500 MG eCW1 ([facility]) Ascorbic Acid 500 MG Oral Tablet Vitamin C 500 MG Vitamin C 500 MG 06/23/2020 12:00:00 AM EST 1.0 {tablet} active Vi tamin C 500 MG eCW1 ([facility]) Zithromax Z-Tomer 250 MG Zithromax Z-Tomer 250 MG 06/23/2020 12:00:[address] suspended Zithromax Z-Tomer 250 MG eC W1 ([facility]) Prednisone 20 MG Oral Tablet PredniSONE 20 MG PredniSONE 20 MG 06/23/2020 12:00:00 AM EST 2.0 {tablets} suspended PredniSONE 20 MG eCW1 ([facility]) Zithromax Z-Tomer 250 MG Zithromax Z-Tomer 250 MG 06/23/2020 12:00:[address] suspended Zithromax Z-Tomer 250 MG eC W1 ([facility]) Ascorbic Acid 500 MG Oral Tablet Vitamin C 500 MG Vitamin C 500 MG 06/23/2020 12:00:00 AM EST 1.0 {tablet} active Vi tamin C 500 MG eCW1 ([facility]) Zinc 50 MG Zinc 50 MG 06/23/2020 12:00:00 AM EST 1.0 {tablet} active Zinc 50 MG eCW1 ([facility]) Ascorbic Acid 500 MG Oral Tablet Vitamin C 500 MG Vitamin C 500 MG 06/23/2020 12:00:00 AM EST 1.0 {tablet} active Vi tamin C 500 MG eCW1 ([facility]) Ascorbic Acid 500 MG Oral Tablet Vitamin C 500 MG Vitamin C 500 MG 06/23/2020 12:00:00 AM EST 1.0 {tablet} active Vi tamin C 500 MG eCW1 ([facility]) Zithromax Z-Tomer 250 MG Zithromax Z-Tomer 250 MG 06/23/2020 12:00:[address] suspended Zithromax Z-Tomer 250 MG eC W1 ([facility]) Zinc 50 MG Zinc 50 MG 06/23/2020 12:00:00 AM EST 1.0 {tablet} active Zinc 50 MG eCW1 ([facility]) Zinc 50 MG Zinc 50 MG 06/23/2020 12:00:00 AM EST 1.0 {tablet} active Zinc 50 MG eCW1 ([facility]) Zithromax Z-Tomer 250 MG Zithromax Z-Tomer 250 MG 06/23/2020 12:00:[address] suspended Zithromax Z-Tomer 250 MG eC W1 ([facility]) Prednisone 20 MG Oral Tablet PredniSONE 20 MG PredniSONE 20 MG 06/23/2020 12:00:00 AM EST 2.0 {tablets} suspended PredniSONE 20 MG eCW1 ([facility]) Zinc 50 MG Zinc 50 MG 06/23/2020 12:00:00 AM EST 1.0 {tablet} active Zinc 50 MG eCW1 ([facility]) Zinc 50 MG Zinc 50 MG 06/23/2020 12:00:00 AM EST 1.0 {tablet} active Zinc 50 MG eCW1 ([facility]) Prednisone 20 MG Oral Tablet PredniSONE 20 MG PredniSONE 20 MG 06/23/2020 12:00:00 AM EST 2.0 {tablets} active P redniSONE 20 MG eCW1 ([facility]) Zithromax Z-Tomer 250 MG Zithromax Z-Tomer 250 MG 06/23/2020 12:00:[address] suspended Zithromax Z-Tomer 250 MG eC W1 ([facility]) Ascorbic Acid 500 MG Oral Tablet Vitamin C 500 MG Vitamin C 500 MG 06/23/2020 12:00:00 AM EST 1.0 {tablet} active Vi tamin C 500 MG eCW1 ([facility]) Prednisone 20 MG Oral Tablet PredniSONE 20 MG PredniSONE 20 MG 06/23/2020 12:00:00 AM EST 2.0 {tablets} suspended PredniSONE 20 MG eCW1 ([facility]) Ascorbic Acid 500 MG Oral Tablet Vitamin C 500 MG Vitamin C 500 MG 06/23/2020 12:00:00 AM EST 1.0 {tablet} active Vi tamin C 500 MG eCW1 ([facility]) Prednisone 20 MG Oral Tablet PredniSONE 20 MG PredniSONE 20 MG 06/23/2020 12:00:00 AM EST 2.0 {tablets} suspended PredniSONE 20 MG eCW1 ([facility]) Zithromax Z-Tomer 250 MG Zithromax Z-Tomer 250 MG 06/23/2020 12:00:[address] active Zithromax Z-Tomer 250 MG eC W1 ([facility]) Ascorbic Acid 500 MG Oral Tablet Vitamin C 500 MG Vitamin C 500 MG 06/23/2020 12:00:00 AM EST 1.0 {tablet} active Vi tamin C 500 MG eCW1 ([facility]) Zithromax Z-Tomer 250 MG Zithromax Z-Tomer 250 MG 06/23/2020 12:00:[address] suspended Zithromax Z-Tomer 250 MG eC W1 ([facility]) Ascorbic Acid 500 MG Oral Tablet Vitamin C 500 MG Vitamin C 500 MG 06/23/2020 12:00:00 AM EST 1.0 {tablet} active Vi tamin C 500 MG eCW1 ([facility]) Zinc 50 MG Zinc 50 MG 06/23/2020 12:00:00 AM EST 1.0 {tablet} active Zinc 50 MG eCW1 ([facility]) 90 mcg/actuation 10/26/2019 12:00:00 AM EDT [...] 12:00:00 AM EST active 1 capsule eCW1 ([facility]) 8 mg 10/12/2019 12:00:00 AM EST tablet [...] 00 AM EST active 1 tablet eCW1 ([facility]) 875 mg 09/16/2019 12:00:00 AM EST tablet [...] relationship to allred Policy Allred Plan Information [facility] [id number] SP [id number] [facility] [id number] SP [id number] MEDICAID [id number] SP [id number] [facility]-Medicaid [id number] ANS-Medicaid [id number] [facility]-Medicaid [id number] ANS-Medicaid [id number] [facility]-Medicaid [id number] [facility]-Medicaid [id number] ANSI-Medicaid [id number] ANSI-Medicaid [id number] ANSI-Medicaid [id number] ANSI-Medicaid [id number] ANSI-Medicaid [id number] ANSI-Medicaid [id number] ANSI-Medicaid [id number] ANSI-Medicaid [id number] ANSI-Medicaid [id number] ANSI-Medicaid [id number] [employer] COMM[employer]AN MCDHMO [id number] SP [id number] ANSI-Medicaid [id number] [facility] Health Maintenance Organization (HMO) [id number] Self [id number] [facility](MCAID) O [id number] S [id number] [facility] [employer] Maintenance Organization (HMO) [id number] Self [id number] ANSI-Medicaid [id number] [employer] [facility] [employer] (HMO) [id number] Self [id number] [employer] [facility] [employer] Maintenance [employer] (HMO) [id number] Self [id number] [facility] Srinivas/M[facility] Health Maintenance Organization (HMO) [id number] Self [id number] [employer] COMM[employer]AN MCDHMO [id number] SP [id number] [employer] COMM[employer]AN MCDHMO [id number] SP [id number] [employer] [facility] [employer] Maintenance [employer] (HMO) [id number] Self [id number] SELF PAY ONLY [id number] SP [id number] [facility] Health Maintenance Organization (HMO) Self Uhc Community Plan Commercial Self UHC MEDICAID [id number] Luisa [id number] [facility](MCAID) P UNAVAILABLE S UNAVAILABLE EXCELLUS BCBS P [id number] S [id number] [employer] [facility] [id number] 18 [id number] [employer] [facility] [id number] 18 [id number] [employer]UE [place] [employer] [id number] Problems, Conditions, and Diagnoses Code Display Name Description Problem Type Effective Dates Data Source(s) G25.0 185847231 Essential tremor Problem 09/05/2020 12:00:00 AM EST eCW1 ([facility]) F41.0 [id number] Panic attacks Problem 08/03/2020 12:00:00 AM EST eCW1 ([facility]) F41.8 479893138 Anxiety with depression Problem 11/13/2019 1 2:00:00 AM EDT eCW1 ([facility]) F41.9 996175406 Anxiety disorder, unspecified Problem 11/13/2019 12:00:00 AM EDT eCW1 ([facility]) F41.9 473643388 Anxiety disorder, unspecified Problem 11/13/2019 12:00:00 AM EDT eCW1 ([facility]) F41.8 924650455 Anxiety with depression Problem 11/13/2019 1 2:00:00 AM EDT eCW1 ([facility]) Z86.39 Vitamin B deficiency History of vitamin B deficiency P roblem 10/12/2019 12:00:00 AM EST eCW1 ([facility]) Z86.39 Vitamin B deficiency History of vitamin B deficiency P roblem 10/12/2019 12:00:00 AM EST eCW1 ([facility]) Surgeries/Procedures Procedure Description Date Indications Data Source(s) Immunization: Flublok Quadrivalent (18 years & older) 0.5mL IM (Influenza) 08/03/2020 12:00:00 AM EST eCW1 ([facility]) PHYSICIAN TELEPHONE EVALUATION 21-30 MIN 11/13/2019 12 :00:00 AM EDT eCW1 ([facility]) Results ID Date Data Source [facility] EVAL 08/03/2020 12:00:00 AM EST eCW1 ([facility]) Name Value Range Interpretation Code Description Data Shell rce(s) Supporting Document(s) 7.3 eCW1 ([facility]) 12.6 eCW1 ([facility]) ID Date Data Source ESTROGENS TOTAL 08/03/2020 12:00:00 AM EST eCW1 ([facility]) Name Value Range Interpretation Code Description Data Shell rce(s) Supporting Document(s) 254 . eCW1 ([facility]) ID Date Data Source RESPIRATORY PANEL 06/23/2020 12:00:00 AM EST eCW1 ([facility]) Name Value Range Interpretation Code Description Data Shell rce(s) Supporting Document(s) This respiratory PCR panel detects Influenza A H1, H3 and RESPIRATORY PANEL eCW1 ([facility]) ID Date Data Source GATS (NEGATIVE STREP SCREEN) 06/23/2020 12:00:00 AM EST eCW1 ([facility]) Name Value Range Interpretation Code Description Data Shell rce(s) Supporting Document(s) FULL REPORT IN LAB NOTES (eCW and [facility]). GATS CULTURE (NEG STREP SCR) eCW1 ([facility]) ID Date Data Source Rapid Strep (Lexie Strep A+ CESAR) 06/23/2020 12:00:00 AM EST eCW1 ([facility]) Name Value Range Interpretation Code Description Data Shell rce(s) Supporting Document(s) Negative Rapid Strep (Lexie Strep A+ CESAR) eCW1 ([facility]) Yes Internal Controls Perform ed (Y/N) eCW1 ([facility]) Negative Result (Positive/Negative) eCW 1 ([facility]) Procedure Social History Code Duration Value Status Description Data Source(s ) Smoking 09/19/2020 12:00:00 AM EST Current Smoker completed Curre nt Smoker eCW1 ([facility]) Smoking 09/05/2020 12:00:00 AM EST Current Smoker completed Curre nt Smoker eCW1 ([facility]) Smoking 08/09/2020 12:00:00 AM EST Current Smoker completed Curre nt Smoker eCW1 ([facility]) Smoking 08/09/2020 12:00:00 AM EST Current Smoker completed Curre nt Smoker eCW1 ([facility]) Smoking 08/09/2020 12:00:00 AM EST Current Smoker completed Curre nt Smoker eCW1 ([facility]) Smoking 08/09/2020 12:00:00 AM EST Current Smoker completed Curre nt Smoker eCW1 ([facility]) Smoking 08/09/2020 12:00:00 AM EST Current Smoker completed Curre nt Smoker eCW1 ([facility]) Smoking 08/03/2020 12:00:00 AM EST Current Smoker completed Curre nt Smoker eCW1 ([facility]) Smoking 08/03/2020 12:00:00 AM EST Current Smoker completed Curre nt Smoker eCW1 ([facility]) Smoking 07/06/2020 12:00:00 AM EST Current Smoker completed Curre nt Smoker eCW1 ([facility]) Smoking 07/06/2020 12:00:00 AM EST Current Smoker completed Curre nt Smoker eCW1 ([facility]) Smoking 07/06/2020 12:00:00 AM EST Current Smoker completed Curre nt Smoker eCW1 ([facility]) Smoking 06/23/2020 12:00:00 AM EST Current Smoker completed Curre nt Smoker eCW1 ([facility]) Smoking 06/23/2020 12:00:00 AM EST Current Smoker completed Curre nt Smoker eCW1 ([facility]) Smoking 06/23/2020 12:00:00 AM EST Current Smoker completed Curre nt Smoker eCW1 ([facility]) Smoking 11/13/2019 12:00:00 AM EDT Current Smoker completed Curre nt Smoker eCW1 ([facility]) Smoking 11/13/2019 12:00:00 AM EDT Current Smoker completed Curre nt Smoker eCW1 ([facility]) Vital Signs ID Date Data Source UNK Name Value Range Interpretation Code Description Data Source(s) Diastolic blood pressure 79 mm[Hg] 79 mm[Hg] eCW1 ([facility]) Systolic blood pressure 127 mm[Hg] 127 mm[Hg] e CW1 ([facility]) Body temperature 96.7 [degF] 96.7 [degF] eCW1 ( [facility]) Respiratory rate 18 /min 18 /min eCW1 ([facility]) Heart rate 106 /min 106 /min eCW1 ([facility]) Body mass index (BMI) [Ratio] 32.77 kg/m2 32.77 kg/m2 eCW1 ([facility]) Body height 63 [in_i] 63 [in_i] eCW1 ([facility]) Body weight 185 [lb_av] 185 [lb_av] eCW1 ([facility]) Diastolic blood pressure 76 mm[Hg] 76 mm[Hg] eCW1 ([facility]) Systolic blood pressure 116 mm[Hg] 116 mm[Hg] e CW1 ([facility]) Oxygen saturation in Arterial blood by Pulse oximetry 97 % 97 % eCW1 ([facility]) Heart rate 90 /min 90 /min eCW1 ([facility]) Body mass index (BMI) [Ratio] 33.30 kg/m2 33.30 kg/m2 eCW1 ([facility]) Body weight 188 [lb_av] 188 [lb_av] eCW1 ([facility]) Body height [in_i] eCW1 ([facility]) Diastolic blood pressure 80 mm[Hg] 80 mm[Hg] eCW1 ([facility]) Systolic blood pressure 132 mm[Hg] 132 mm[Hg] e CW1 ([facility]) Body temperature 98.6 [degF] 98.6 [degF] eCW1 ( [facility]) Respiratory rate 20 /min 20 /min eCW1 ([facility]) Heart rate 106 /min 106 /min eCW1 ([facility]) Body mass index (BMI) [Ratio] 32.59 kg/m2 32.59 kg/m2 W1 ([facility]) Body height 63 [in_i] 63 [in_i] eCW1 ([facility]) Body weight 184 [lb_av] 184 [lb_av] eCW1 ([facility]) Diastolic blood pressure 72 mm[Hg] 72 mm[Hg] eCW1 ([facility]) Systolic blood pressure 110 mm[Hg] 110 mm[Hg] e CW1 ([facility]) Body temperature 98.6 [degF] 98.6 [degF] eCW1 ( [facility]) Respiratory rate 18 /min 18 /min eCW1 ([facility]) Heart rate 103 /min 103 /min eCW1 ([facility]) Body mass index (BMI) [Ratio] 33.14 kg/m2 33.14 kg/m2 eCW1 ([facility]) Body height 63 [in_i] 63 [in_i] eCW1 ([facility]) Body weight 187.12 [lb_av] 187.12 [lb_av] eCW1 ([facility]) Diastolic blood pressure 82 mm[Hg] 82 mm[Hg] eCW1 ([facility]) Systolic blood pressure 124 mm[Hg] 124 mm[Hg] e CW1 ([facility]) Body temperature 97.9 [degF] 97.9 [degF] eCW1 ( [facility]) Respiratory rate 18 /min 18 /min eCW1 ([facility]) Heart rate 106 /min 106 /min eCW1 ([facility]) Body mass index (BMI) [Ratio] 32.84 kg/m2 32.84 kg/m2 eCW1 ([facility]) Body height 63 [in_i] 63 [in_i] eCW1 ([facility]) Body weight 185.4 [lb_av] 185.4 [lb_av] eCW1 ([facility]) Diastolic blood pressure 77 mm[Hg] 77 mm[Hg] eCW1 ([facility]) Systolic blood pressure 122 mm[Hg] 122 mm[Hg] e CW1 ([facility]) Body temperature 97.8 [degF] 97.8 [degF] eCW1 ( [facility]) Respiratory rate 17 /min 17 /min eCW1 ([facility]) Heart rate 102 /min 102 /min eCW1 ([facility]) Body mass index (BMI) [Ratio] 32.84 kg/m2 32.84 kg/m2 eCW1 ([facility]) Body height 63 [in_us] 63 [in_us] eCW1 ([facility]) Body weight Measured 185.4 [lb_av] 185.4 [lb_av ] eCW1 ([facility]) Diastolic blood pressure 74 mm[Hg] 74 mm[Hg] eCW1 ([facility]) Systolic blood pressure 113 mm[Hg] 113 mm[Hg] e CW1 ([facility]) Body temperature 98.0 [degF] 98.0 [degF] eCW1 ( [facility]) Respiratory rate 18 /min 18 /min eCW1 ([facility]) Heart rate 78 /min 78 /min eCW1 ([facility]) Body weight Measured 183 [lb_av] 183 [lb_av] eC W1 ([facility]) Body mass index (BMI) [Ratio] 32.41 kg/m2 32.41 kg/m2 eCW1 ([facility]) Body height 63 [in_us] 63 [in_us] eCW1 ([facility]) Patient Treatment Plan of Care Planned Activity Planned Date Details Description Data Source (s) pregabalin 75 MG Oral Capsule [Lyrica] 09/19/2020 12:00:00 AM EST eCW1 ([facility]) Albuterol Sulfate HFA 108 (90 Base) MCG/ACT 08/08/2020 12:00:00 AM EST eCW1 ([facility]) Hydroxyzine Hydrochloride 25 MG Oral Tablet 08/03/2020 12:00:00 AM EST eCW1 ([facility]) RA Saline Solution - 08/03/2020 12:00:00 AM EST eCW1 ([facility]) Hydroxyzine Hydrochloride 25 MG Oral Tablet 08/03/2020 12:00:00 AM EST eCW1 ([facility]) RA Saline Solution - 08/03/2020 12:00:00 AM EST eCW1 ([facility]) Hydroxyzine Hydrochloride 25 MG Oral Tablet 08/03/2020 12:00:00 AM EST eCW1 ([facility]) Primidone 50 MG Oral Tablet 07/06/2020 12:00:00 AM EST eCW1 ([facility]) Primidone 50 MG Oral Tablet 07/06/2020 12:00:00 AM EST eCW1 ([facility]) Primidone 50 MG Oral Tablet 07/06/2020 12:00:00 AM EST eCW1 ([facility]) doxycycline hyclate 100 MG Oral Capsule 07/04/2020 12:00:00 AM EST eCW1 ([facility]) doxycycline hyclate 100 MG Oral Capsule 07/04/2020 12:00:00 AM EST eCW1 ([facility]) doxycycline hyclate 100 MG Oral Capsule 07/04/2020 12:00:00 AM EST eCW1 ([facility]) doxycycline hyclate 100 MG Oral Capsule 07/04/2020 12:00:00 AM EST eCW1 ([facility]) Ascorbic Acid 500 MG Oral Tablet 06/23/2020 12:00:00 AM EST eCW1 ([facility]) Zinc 50 MG 06/23/2020 12:00:00 AM EST e CW1 ([facility]) Ascorbic Acid 500 MG Oral Tablet 06/23/2020 12:00:00 AM EST eCW1 ([facility]) Zithromax Z-Tomer 250 MG 06/23/2020 12:00:00 AM EST eCW1 ([facility]) Prednisone 20 MG Oral Tablet 06/23/2020 12:00:00 AM EST eCW1 ([facility]) Zinc 50 MG 06/23/2020 12:00:00 AM EST e CW1 ([facility]) Ascorbic Acid 500 MG Oral Tablet 06/23/2020 12:00:00 AM EST eCW1 ([facility]) Zithromax Z-Tomer 250 MG 06/23/2020 12:00:00 AM EST eCW1 ([facility]) Prednisone 20 MG Oral Tablet 06/23/2020 12:00:00 AM EST eCW1 ([facility]) Zinc 50 MG 06/23/2020 12:00:00 AM EST e CW1 ([facility]) Prednisone 20 MG Oral Tablet 06/23/2020 12:00:00 AM EST eCW1 ([facility]) Zithromax Z-Tomer 250 MG 06/23/2020 12:00:00 AM EST eCW1 ([facility]) doxycycline hyclate 100 MG Oral Capsule 10/12/2019 12:00:00 AM EST eCW1 ([facility]) Amoxicillin 875 MG Oral Tablet 09/16/2019 12:00:00 AM EST eCW1 ([facility])
[2020-09-30] MEDS ORDERED: ISOVUE-370 76% 100ML VIAL As Ordered ONE (04:17)
--- NOTE | 2020-09-30 04:19 | REPVR ---
PROCEDURE INFORMATION: Exam: US Duplex Right Lower Extremity Veins, Limited Exam date and time: 09/30/2020 3:44 AM Age: 40 years old Clinical indication: Pain; Leg, upper and leg, lower; Right; Additional info: Swelling R/O dvt TECHNIQUE: Imaging protocol: Real-time Duplex ultrasound of the Right Lower Extremity with 2-D roberson scale, color Doppler flow and spectral waveform analysis with image documentation. Limited exam was focused on the right lower extremity veins. COMPARISON: No relevant prior studies available. FINDINGS: Right deep veins: The common femoral, femoral, and popliteal veins are patent without thrombus. Normal compressibility and/or augmentation response. Right superficial veins: Saphenofemoral junction is patent without thrombus. Soft tissues: Unremarkable. IMPRESSION: No evidence of deep vein thrombosis from the right common femoral to the popliteal veins. Electronically signed by: Brown Gonzalez On 09/30/2020 04:19:12 AM
[2020-09-30 05:06] LABS: ALBUMIN 3.4 GM/DL (3.2-5.2); ALT/SGPT 61 U/L (12-78); BILIRUBIN,DIRECT < 0.1 MG/DL (0.0-0.2); BILIRUBIN,TOTAL 0.2 MG/DL (0.2-1.0); TOTAL PROTEIN 6.6 GM/DL (6.4-8.2)
[2020-09-30] MEDS ORDERED: ACETAMINOPHEN TAB 650MG DOSE (2X325MG) PO ONE (05:15)
--- NOTE | 2020-09-30 05:25 | REPVR ---
PROCEDURE INFORMATION: Exam: CT Abdomen And Pelvis With Contrast Exam date and time: 09/30/2020 4:03 AM Age: 40 years old Clinical indication: Other: Leg edema; Additional info: Unilateral leg edema R/O pelvic mass TECHNIQUE: Imaging protocol: Computed tomography of the abdomen and pelvis with contrast. Radiation optimization: All CT scans at this facility use at least one of these dose optimization techniques: automated exposure control; mA and/or kV adjustment per patient size (includes targeted exams where dose is matched to clinical indication); or iterative reconstruction. Contrast material: ISO; Contrast volume: 100 ml; Contrast route: INTRAVENOUS (IV); COMPARISON: 1. CT ABD/PEL W/IV CONTRAST ONLY 2018-05-25 11:[address] ABD PELVIS WITH CONTRAST 2016-05-03 12:16 FINDINGS: Liver: Enlarged low attenuating liver, evidence of hepatic steatosis. Gallbladder and bile ducts: Normal. No calcified stones. No ductal dilation. Pancreas: Normal. No ductal dilation. Spleen: Normal. No splenomegaly. Adrenal glands: Normal. No mass. Kidneys and ureters: Normal. No hydronephrosis. Stomach and bowel: Evidence of a previous gastric bypass. Excluded gastric wall thickening, correlate for gastric antritis and proximal duodenal peptic ulcer disease. Appendix: Normal appendix. Intraperitoneal space: Unremarkable. No free air. No significant fluid collection. Vasculature: Unremarkable. No abdominal aortic aneurysm. Lymph nodes: Unremarkable. No enlarged lymph nodes. Urinary bladder: Unremarkable as visualized. Reproductive: Unremarkable as visualized. Bones/joints: Unremarkable. No acute fracture. Soft tissues: Unremarkable. IMPRESSION: 1. No mass or specific cause to explain unilateral edema. Impression. 2. Enlarged low attenuating liver, evidence of hepatic steatosis. 3. Evidence of a previous gastric bypass. Excluded gastric wall thickening, correlate for gastric antritis and proximal duodenal peptic ulcer disease. Electronically signed by: Joesph Shukla On 09/30/2020 05:24:57 AM
[2020-09-30 06:30] VITALS: BP 152/72
== END 2020-09-30 06:45 | disposition home or self-care (01) ==
LOC: M ED 02:24
DX: R60.9 Edema, unspecified (principal); G89.4 Chronic pain syndrome; K76.0 Fatty (change of) liver, not elsewhere classified; E78.5 Hyperlipidemia, unspecified; J45.909 Unspecified asthma, uncomplicated; M79.7 Fibromyalgia; F41.9 Anxiety disorder, unspecified; F32.9 Major depressive disorder, single episode, unspecified; Z98.84 Bariatric surgery status; K25.9 Gastric ulcer, unspecified as acute or chronic, without hemorrhage or perforation; F17.200 Nicotine dependence, unspecified, uncomplicated; Z79.899 Other long term (current) drug therapy; Z88.6 Allergy status to analgesic agent
CPT/HCPCS: 74177; 80047; 80076; 85379; 93971; 99284; Q9967

== ENCOUNTER → 2020-10-03 | Outpatient (REF) | payer OTHER ==
[~2020-10-03] MED LIST changes: +HYDR-3363 PO; +PREG75CA2 PO
== END ==
LOC: M LABDRAWC 11:13
PROVIDERS: ATTEND Psychiatry & Neurology Neurology
DX: G25.0 Essential tremor (principal)

== ENCOUNTER 2020-10-06 13:55 | Emergency (ER) | payer OTHER ==
[~2020-10-06] VITALS: Ht 160 cm; Wt 87.9 kg
--- OUTSIDE RECORDS SUMMARY | 2020-10-06 14:04 | CCD ---
Author Author [facility] Organization [facility] Address Unknown Phone Unavailable Care Team Providers Care Presales Engineer Name Role Phone Chica Martinez Unavailable PROBLEMS Type Condition ICD9-CM Code [id number] Code Onset Dates Condition S tatus W/U Status Risk SNOMED Code Notes Problem Internal hemorrhoid K64.8 Active confirmed 82411247 Problem Cyst of ovary, unspecified laterality N83.209 Ac tive confirmed 16313039 Problem Polyp of colon, unspecified part of colon, unspecified typ e K63.5 Active confirmed 41533164 Problem Gastric ulcer, unspecified chronicity K25.9 Ac tive confirmed 166845110 Problem History of gastric bypass Z98.890 Active confirmed 165857394 Problem DDD (degenerative disc disease), lumbosacral M51.3 7 Active confirmed 86532835 Problem 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 Active confirmed 486233137 Problem Other bursitis of hip, right hip M70.71 Active conf irmed 04022287 Problem Other bursitis of hip, left hip M70.72 Active confi rmed 61678444 Problem Other chronic pain G89.29 Active confirmed 8 6982112 Problem Plantar fasciitis M72.2 Active confirmed 20 4451565 Problem Allergic rhinitis, unspecified J30.9 Active confir med 74386236 Problem Vitamin D deficiency E55.9 Active confirmed 89931716 Problem Chronic sinusitis, unspecified location J32.9 Active confirmed 46392585 Problem Chronic pain disorder G89.4 Active confirmed 742997112 Problem Diverticulosis of intestine without bleeding, unspecified intestinal tract location K57.90 Active confirmed 81377089 Problem Fatty liver K76.0 Active confirmed 62646335 7 Problem Hypertriglyceridemia E78.1 Active confirmed 720886094 Problem Panic attacks F41.0 Active confirmed 130979 000 Problem Body mass index (BMI) of 39.0-39.9 in adult Z68.39 Active confirmed 792514212 Problem PUD (peptic ulcer disease) K27.9 Active confirmed 57279130 Problem Moderate persistent asthma without complication J4 5.40 Active confirmed 757410148 Problem Fibromyalgia M79.7 Active confirmed 4565953 05 Problem Former smoker Z87.891 Active confirmed 24412 06 Problem History of vitamin B deficiency Z86.39 Active confi rmed 02259924 Problem Anxiety with depression F41.8 Active confirmed 475494304 Problem Anxiety disorder, unspecified F41.9 Active confirm ed 648213212 ALLERGIES Allergen (clinical drug ingredient) Drug/Non Drug Allergy do cumented on EMR Reaction Allergy Type Onset Date Status ibuprofen Ibuprofen([facility] Code:[address]-00) Gastric bi-pass Drug All ergy Active ENCOUNTERS from 1982 to 2020-10-05 Encounter Location Date Provider Diagnosis [facility] [address] [place] [address] 22 Sep Chica Martinez IMMUNIZATIONS Vaccine Route Administration Date Status Influenza 18 yrs & older Flublok IM Intramuscular Aug 03, 2020 Administered Influenza 18 yrs & older Flublok IM Intramuscular Jun 16, 2018 Administered TDAP 0.5mL (Boostrix) IM Intramuscular January 25, 2017 Administe red TD Adult 0.5mL Tetanus Unknown January 25, 2017 Pending Influenza 6mo & up Fluzone IM Intramuscular Jul 29, 2017 Admi nistered Influenza 6mo & up Fluzone IM Intramuscular May 23, 2016 Admi nistered SOCIAL HISTORY Tobacco Use: Social History Observation Description Date Details (start date - stop date) Current Smoker Sex Assigned At : Social History Observation Description Sex Assigned At Unknown Education: Question Answer Notes Level of Education: Not Finished College Language: Question Answer Notes Languages spoken: Brazilian Adventist: Question Answer Notes [employer]ist [employer] Domestic Violence: Question Answer Notes Status: Sexual [...] Notes Start Da te End Date Status Qvar RediHaler 80 MCG/ACT 1 puff Inhalation Once a day for 30 Da ys Sep, Active Carafate 1 GM 1 tablet on an empty stomach Orally qid for 30 d ay(s) Sep, Active Flovent HFA 110 MCG/ACT 1 puff Inhalation Twice a day for 30 Day s Sep, Active Gabapentin 300 MG 1 capsule Orally TID Active Albuterol Sulfate HFA 108 (90 Base) MCG/ACT 1 puff as needed Inhalation every 4 hrs for 30 Days Jul, Active Lyrica 75 MG 1 capsule Orally bid for 30 Days Sep, Active Vitamin B-12 500 MCG 1 tablet Orally Once a day for 30 day(s) Active Doxycycline Hyclate 100 MG 1 capsule Orally every 12 hrs for 10 day(s) Jun, Not-Taking Vitamin D-[address] 25 MCG (1000 UT) 1 tablet Orally Once a day for 30 day(s) Active Vitamin C 500 MG 1 tablet Orally Once a day for 30 day(s) Jun, Active Zithromax Z-Tomer 250 MG 2 tablet on the first day, then 1 tablet daily for 4 days Orally Once a day for 5 day(s) Jun, Not-Taking Omeprazole 40 MG 1 capsule Orally Twice a day for 30 Not-Taking Asmanex HFA 100 MCG/ACT 2 puffs Inhalation Twice a day for 30 Da ys Sep, Active Omeprazole 40 MG 1 capsule 30 minutes before morning meal Orally BID for 30 Days Active Primidone 50 MG as directed Orally 1/2 tab bid x 7 days, then 1 tab bid for 33 Active PredniSONE 20 MG 2 tablets Orally Once a day for 5 day(s) Jun, Not-Taking Albuterol Sulfate HFA 108 (90 Base) MCG/ACT INHALE TWO PUFFS BY MOUTH EVERY 4 HOURS NEEDED for 4 Not-Taking HydrOXYzine HCl 25 MG 1 tablet as needed Orally ev opal 8 hrs as needed for 30 day(s) Jul, Active Tizanidine HCl 4 MG 1 capsule as needed Orally Three times a day prn Active RA Saline Solution - as directed nebulize 1 ampule Q4H as needed for 30 days Jul, Active Ondansetron HCl 8 mg 1 tablet Orally Every 8 hours prn for 10 day(s) Active Ventolin HFA 108 (90 Base) MCG/ACT 1 puff as needed In halation every 4 hrs for 30 days Active Montelukast Sodium 10 MG 1 tablet Orally Once a day for 30 day(s) Active Loratadine 10 MG 1 tablet Orally Once a day Active Duloxetine HCl 60 MG 1 capsule Orally Once a day Active Arnuity Ellipta 100 MCG/ACT 1 puff Inhalation Once a day Active Zinc 50 MG 1 tablet Orally Once a day for 30 day(s) Jun Active PROCEDURES No Information RESULTS No Results [...] Medication Name Sig Start Date Stop Date Omeprazole 40 MG 1 capsule 30 minutes before morning meal Orally BID for 30 Days Asmanex HFA 100 MCG/ACT 2 puffs Inhalation Twice a day for 30 Da ys Sep, Flovent HFA 110 MCG/ACT 1 puff Inhalation Twice a day for 30 Day s Sep, Ondansetron HCl 8 mg 1 tablet Orally Every 8 hours prn for 10 da y(s) Carafate 1 GM 1 tablet on an empty stomach Orally qid for 30 day(s) Sep, Qvar RediHaler 80 MCG/ACT 1 puff Inhalation Once a day for 30 Da ys Sep, Next Appt Details Provider Name:Chica Martinez, 10-31 01:15:00 PM, [address] [place] [address], [id number], Provider Name:Rupali Hogan, 2020-11-21 02 :00:00 PM, [address] [place], [address], Insurance Providers Payer Name Payer Address Payer Phone Insured Name Patient Relati onship to Insured Coverage Start Date Coverage End Date [facility] [address] [facility] [id number] ADRIENNE AYALA 2014 08/11/9999
--- OUTSIDE RECORDS SUMMARY | 2020-10-06 14:05 | CCD ---
Author Author [facility] Organization [facility] Address Unknown Phone Unavailable Care Team Providers Care Commercial Housekeeper Name Role Phone Chica Martinez Unavailable PROBLEMS Type Condition ICD9-CM Code DKH41-IH Code Onset Dates Condition S tatus W/U Status Risk SNOMED Code Notes Problem Internal hemorrhoid K64.8 Active confirmed 38241450 Problem Cyst of ovary, unspecified laterality N83.209 Ac tive confirmed 85513072 Problem Polyp of colon, unspecified part of colon, unspecified typ e K63.5 Active confirmed 59870255 Problem Gastric ulcer, unspecified chronicity K25.9 Ac tive confirmed 482817522 Problem History of gastric bypass Z98.890 Active confirmed 017013977 Problem DDD (degenerative disc disease), lumbosacral M51.3 7 Active confirmed 70239283 Problem 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 Active confirmed 259164052 Problem Other bursitis of hip, right hip M70.71 Active conf irmed 66258998 Problem Other bursitis of hip, left hip M70.72 Active confi rmed 53213612 Problem Other chronic pain G89.29 Active confirmed 8 4348715 Problem Plantar fasciitis M72.2 Active confirmed 20 4752913 Problem Allergic rhinitis, unspecified J30.9 Active confir med 26533771 Problem Vitamin D deficiency E55.9 Active confirmed 49077494 Problem Chronic sinusitis, unspecified location J32.9 Active confirmed 11124165 Problem Chronic pain disorder G89.4 Active confirmed 306169591 Problem Diverticulosis of intestine without bleeding, unspecified intestinal tract location K57.90 Active confirmed 62289320 Problem Fatty liver K76.0 Active confirmed 08840020 7 Problem Hypertriglyceridemia E78.1 Active confirmed 046244610 Problem Panic attacks F41.0 Active confirmed 122793 000 Problem Body mass index (BMI) of 39.0-39.9 in adult Z68.39 Active confirmed 107873483 Problem PUD (peptic ulcer disease) K27.9 Active confirmed 48028670 Problem Moderate persistent asthma without complication J4 5.40 Active confirmed 287763642 Problem Fibromyalgia M79.7 Active confirmed 2405302 05 Problem Former smoker Z87.891 Active confirmed 84330 06 Problem History of vitamin B deficiency Z86.39 Active confi rmed 93254400 Problem Anxiety with depression F41.8 Active confirmed 162940463 Problem Anxiety disorder, unspecified F41.9 Active confirm ed 454516248 ALLERGIES Allergen (clinical drug ingredient) Drug/Non Drug Allergy do cumented on EMR Reaction Allergy Type Onset Date Status ibuprofen Ibuprofen([facility] Code:[address]-26) Gastric bi-pass Drug All ergy Active ENCOUNTERS from 1982 to 2020-10-04 Encounter Location Date Provider Diagnosis [facility] [address] [place] [address] 19 Sep Chica Martinez IMMUNIZATIONS Vaccine Route Administration [...] College Language: Question Answer Notes Languages spoken: Egyptian Jain: Question Answer Notes Jain 08 Spiritism Domestic Violence: Question Answer Notes Status: Sexual [...] Information RESULTS No Results REASON FOR VISIT [facility] follow up- leg swelling MEDICAL (GENERAL) HISTORY Type Description Date Medical [...] Details Provider Name:Chica Martinez, 10-31 01:15:00 PM, [address] [place] [address], [id number], Provider Name:Rupali Hogan, 2020-11-21 02 :00:00 PM, [address] [place], [address], Insurance Providers Payer Name Payer Address Payer Phone Insured Name Patient Relati onship to Insured Coverage Start Date Coverage End Date [facility] [place] [address] [facility] [address] ADRIENNE AYALA 02[birth year]201608/[birth year]
--- OUTSIDE RECORDS SUMMARY | 2020-10-06 14:05 | CCD | Continuity of Care Document ---
Author Author [facility] Address [address] [place] [address] Phone Care Team Providers Care Asp Net Software Developer Name Role Phone ERI ZELAYA PCP Allergies, Adverse Reactions, Alerts No allergy information available. Medications No medication information available. Problems No problem information available. Procedures No procedure information available. Relevant Diagnostic Tests and/or Laboratory Data No known relevant diagnostic tests and/or laboratory data. Health Concerns No known health concerns documented Chief Complaint and Reason for Visit Reason for Visit SWOLLEN RIGHT LEG Encounters Encounter Location(s) Arrival/Admit Date Discharge/Depart Date Provider(s) Departed Emergency [facility] September 30, 2020 11:28 am September 30, 2020 12:30pm PATRIA WOO Assessments No Assessments Information Available Functional Status No Functional Status information available Goals No Goals Information Available Immunizations No Immunization Information Available Mental Status No Mental Status Information Available Medical Equipment No Medical Equipment Information available Insurance Providers Guarantor ADRIENNE AYALA Address [address] [id number] Contact Info. Home Phone: Payer Policy Id Coverage Id Subscriber's Name Subscriber Id Effect andrew Date Expiration Date [employer] MEDICAID [id number] ADRIENNE AYALA Social History Assigned Sex Female Vital Signs No vital signs result information available.
--- OUTSIDE RECORDS SUMMARY | 2020-10-06 14:05 | CCD | Continuity of Care Document ---
Author Author [facility] Address [address] [place] [address] Phone Care Team Providers Care Cytology Laboratory Manager Name Role Phone ADDYERI FOSTER PCP Allergies, Adverse Reactions, Alerts No allergy information available. Medications No medication information available. Problems No problem information available. Procedures Procedure Date Performed Status ANKLE COMPLETE October 05, 2020 active Relevant Diagnostic Tests and/or Laboratory Data Laboratory Results Test Date/Time Result Interpretation Reference Range Result Co mment Performing Site White Blood Count October 04, 2020 9:40pm 6.9 4.0-1 0.0 [facility], [address] [place] [address] Red Blood Count October 04, 2020 9:40pm 4.11 4.00-5. 50 [facility], [address] [place] [address] Hemoglobin October 04, 2020 9:40pm 13.8 12.0-16.0 [facility], [address] [place] [address] Hematocrit October 04, 2020 9:40pm 39.6 36.0-48.8 [facility], [address] [place] [address] Mean Corpuscular Volume October 04, 2020 9:40pm 96.4 80-96 [facility], [address] [facility] [address] Mean Corpuscular Hemoglobin October 04, 2020 9:40pm 33.6 27.0-31.0 [facility], [address] [facility] [address] Mean Corpuscular Hgb Concent Diff October 04, 2020 9:40pm 34.8 32.0-36.0 [facility], [address] [facility] [address] Red Cell Distribution Width October 04, 2020 9:40pm 12.9 10.0-14.5 [facility], [address] [facility] [address] Platelet Count October 04, 2020 9:40pm 126 172-450 [facility], [address] [facility] [address] Mean Platelet Volume October 04, 2020 9:40pm 9.6 9. 0-13.0 [facility], [address] [facility] [address] Granulocytes % (Auto) October 04, 2020 9:40pm 46.7 5 0-80.0 [facility], [address] [facility] [address] Immature Granulocytes % October 04, 2020 9:40pm 0.1 0.0-0.2 [facility], [address] [facility] [address] Lymphocytes % October 04, 2020 9:40pm 37.2 25.0-50.0 [facility], [address] [facility] [address] Monocytes % October 04, 2020 9:40pm 7.1 2.0-10.0 [facility], 4 [facility] [address] Eosinophils % October 04, 2020 9:40pm 8.3 0-5.0 [facility], [address] [facility] [address] Basophils % October 04, 2020 9:40pm 0.6 0.0-2.0 [facility], [address] [facility] [address] Granulocytes # October 04, 2020 9:40pm 3.2 2.0-8.00 [facility], [address] [facility] [address] Immature Granulocytes # October 04, 2020 9:40pm 0.0 0.0-0.2 [facility], [address] [facility] [address] Lymphocytes # October 04, 2020 9:40pm 2.6 1.0-5.0 [facility], [address] [facility] [address] Monocytes # October 04, 2020 9:40pm 0.5 0.10-1.20 [facility], [address] [facility] [address] Eosinophils # October 04, 2020 9:40pm 0.6 0.0-0.5 [facility], [address] [facility] [address] Basophils # October 04, 2020 9:40pm 0.0 0.0-0.2 [facility], [address] [facility] [address] Prothrombin Time October 04, 2020 9:40pm 10.1 9.1-11 .6 [facility], [address] [facility] [address] INR International Normalized Ratio October 04, 2020 9:40pm 0.97 0.87-1.06 [facility], [address] [facility] [address] Partial Thromboplastin Time - Patria October 04, 2020 9:40pm 22.5 21.2-27.3 [facility], [address] [facility] [address] D-Dimer October 04, 2020 9:40pm 0.55 0.19-0.60 [facility], [address] [facility] [address] Urine Color October 04, 2020 9:24pm [facility], [address] [facility] [address] Urine Appearance October 04, 2020 9:24pm CLEAR [facility], [address] [facility] [address] Urine Glucose October 04, 2020 9:24pm NEGATIVE NEGATIVE [facility], [address] [facility] [address] Urine Bilirubin October 04, 2020 9:24pm NEGATIVE NEGATIV E [facility], [address] [facility] [address] Urine Ketones October 04, 2020 9:24pm NEGATIVE NEGATIVE [facility], [address] [facility] [address] Specific [place] October 04, 2020 9:24pm 1.010 1.001- 1.035 [facility], [address] [facility] [address] Urine Blood October 04, 2020 9:24pm NEGATIVE NEGATIVE [facility], [address] [facility] [address] Urine pH October 04, 2020 9:24pm 6.5 5.0-9.0 [facility], [address] [facility] [address] Urine Protein October 04, 2020 9:24pm NEGATIVE NEGATIVE [facility], [address] [facility] [address] Urine Urobilinogen October 04, 2020 9:24pm NORMAL(0.2-1) 0-1 [facility], [address] [facility] [address] Urine Nitrite October 04, 2020 9:24pm NEGATIVE NEGATIVE [facility], [address] [facility] [address] Urine Leukocyte Esterase October 04, 2020 9:24pm NEGATIVE NEGATIVE [facility], [address] [facility] [address] Glucose Level October 04, 2020 9:40pm 91 74-106 [facility], [address] [facility] [address] Blood Urea Nitrogen October 04, 2020 9:40pm 7 7-1 8 [facility], [address] [facility] [address] Creatinine October 04, 2020 9:40pm 0.41 0.6-1.0 [facility], [address] [place] [address] Sodium Level October 04, 2020 9:40pm 137 136-145 [facility], [address] [facility] [address] Potassium Level October 04, 2020 9:40pm 4.1 3.5-5.1 [facility], [address] [facility] [address] Chloride Level October 04, 2020 9:40pm 100 98-107 [facility], [address] [facility] [address] Carbon Dioxide Level October 04, 2020 9:40pm 29 21 -32 [facility], [address] [facility] [address] Calcium Level October 04, 2020 9:40pm 8.4 8.5-10.1 [facility], [address] [place] [address] Anion Gap October 04, 2020 9:40pm 8.0 5-12 [facility], [address] [facility] [address] Estimated GFR (MDRD) October 04, 2020 9:40pm >90 GFR IS CALCULATED IN mL/min/1.73m2 NORMAL FUNCTION: >90MILDLY DECREASED: 60-89MILDY TO MODERATELY DECREASED: 45-59 MODERATELY TO SEVERELY DECREASED: 30-44SEVERELY DECREASED: 15-29RENAL FAILURE: <15 [facility], [address] [facility] [address] Aspartate Amino Transf (AST/SGOT) October 04, 2020 9:40pm 158 15-37 [facility], [address] [facility] [address] Alanine Aminotransferase (ALT/SGPT) October 04, 2020 9:40pm 77 12-78 [facility], [address] [facility] [address] Alkaline Phosphatase October 04, 2020 9:40pm 139 46 -116 [facility], [address] [facility] [address] Total Bilirubin October 04, 2020 9:40pm 0.4 0.2-1.0 [facility], [address] [facility] [address] Total Protein October 04, 2020 9:40pm 7.2 6.4-8.2 [facility], [address] [facility] [address] Albumin October 04, 2020 9:40pm 3.6 3.4-5.0 [facility], [address] [facility] [address] Lipase October 04, 2020 9:40pm 205 73-393 [facility], [address] [facility] [address] Magnesium Level October 04, 2020 9:40pm 2.0 1.8-2.4 [facility], [address] [facility] [address] Health Concerns No known health concerns documented Chief Complaint and Reason for Visit Reason for Visit PERSONAL. Encounters Encounter Location(s) Arrival/Admit Date Discharge/Depart Date Provider(s) [facility] October 04, 2020 9:10p m October 04, 2020 10:50pm IIRSH HIDALGO [facility] September 30, 2020 11:28 am September 30, 2020 12:30pm PATRIA WOO No Assessments Information Available Functional Status No Functional Status information available Goals No Goals Information Available Immunizations No Immunization Information Available Mental Status No Mental Status Information Available Medical Equipment No Medical Equipment Information available Insurance Providers Guarantor ADRIENNE AYALA Address [address] [place] [address] Contact Info. Home Phone: Payer Policy Id Coverage Id Subscriber's Name Subscriber Id Effect anderw Date Expiration Date [employer] MEDICAID [id number] ADRIENNE AYALA Plan of Treatment Future Tests Future scheduled test information is unavailable Pending Tests Test Name Date ordered CHLAMYDIA TRACHOMATIS, FAYE October 04, 2020 9:55pm NEISSERIA GONORRHOEAE, FAYE October 04, 2020 9:55pm WILLI SPECIES October 04, 2020 9:55pm GARDNERELLA VAGINALIS October 04, 2020 9:55pm TRICHOMONAS VAGINALIS October 04, 2020 9:55pm Future Visits Future appointment information is unavailable Referrals to Other Providers Referral information is unavailable Future Procedures Future procedure information is unavailable Future Medications Future medication information is unavailable Patient Instructions Patient instructions are unavailable Social History Assigned Sex Female Vital Signs No vital signs result information available.
--- OUTSIDE RECORDS SUMMARY | 2020-10-06 14:06 | CCD ---
Author Author [facility] Organization [facility] Address Unknown Phone Unavailable Care Team Providers Care Custom Stock Maker Name Role Phone PETROFF, JERMAINE PA Unavailable Unavailable PETROFF, JERMAINE PA Unavailable Unavailable PETROFF, JERMAINE PA Unavailable Unavailable PETROFF, JERMAINE PA Unavailable Unavailable PETROFF, JERMAINE PA Unavailable Unavailable PETROFF, JERMAINE PA Unavailable Unavailable PETROFF, JERMAINE PA Unavailable Unavailable PETROFF, JERMAINE PA Unavailable Unavailable SYMENOW, G CHRISTOPHER PA Unavailable Unavailable SYMENOW, G CHRISTOPHER PA Unavailable Unavailable SYMENOW, G CHRISTOPHER PA Unavailable Unavailable SYMENOW, G CHRISTOPHER PA Unavailable Unavailable SYMENOW, G CHRISTOPHER PA Unavailable Unavailable SYMENOW, G CHRISTOPHER PA Unavailable Unavailable SYMENOW, G CHRISTOPHER PA Unavailable Unavailable SYMENOW, G CHRISTOPHER PA Unavailable Unavailable SYMENOW, G CHRISTOPHER PA Unavailable Unavailable SYMENOW, G CHRISTOPHER PA Unavailable Unavailable SYMENOW, G CHRISTOPHER PA Unavailable Unavailable SYMENOW, G CHRISTOPHER PA Unavailable Unavailable SYMENOW, G CHRISTOPHER PA Unavailable Unavailable SYMENOW, G CHRISTOPHER PA Unavailable Unavailable SYMENOW, G CHRISTOPHER PA Unavailable Unavailable SYMENOW, G CHRISTOPHER PA Unavailable Unavailable SYMENOW, G CHRISTOPHER PA Unavailable Unavailable Alberry, D Chica WEED CONTROLLER Unavailable Unavailable Alberry, D Chica WEED CONTROLLER Unavailable Unavailable Alberry, D Chica WEED CONTROLLER Unavailable Unavailable Alberry, D Chica WEED CONTROLLER Unavailable Unavailable Alberry, D Chica WEED CONTROLLER Unavailable Unavailable Alberry, D Chica WEED CONTROLLER Unavailable Unavailable Alberry, D Chica WEED CONTROLLER Unavailable Unavailable Alberry, D Chica WEED CONTROLLER Unavailable Unavailable Alberry, D Chica WEED CONTROLLER Unavailable Unavailable Alberry, D Chica WEED CONTROLLER Unavailable Unavailable Alberry, D Chica WEED CONTROLLER Unavailable Unavailable Alberry, D Chica WEED CONTROLLER Unavailable Unavailable Alberry, D Chica WEED CONTROLLER Unavailable Unavailable Alberry, D Chica WEED CONTROLLER Unavailable Unavailable Alberry, D Chica WEED CONTROLLER Unavailable Unavailable Alberry, D Chica WEED CONTROLLER Unavailable Unavailable Alberry, D Chica WEED CONTROLLER Unavailable Unavailable Alberry, D Chica WEED CONTROLLER Unavailable Unavailable Alberry, D Chica WEED CONTROLLER Unavailable Unavailable Alberry, D Chica WEED CONTROLLER Unavailable Unavailable Alberry, D Chica WEED CONTROLLER Unavailable Unavailable Alberry, D Chica WEED CONTROLLER Unavailable Unavailable Alberry, D Chica WEED CONTROLLER Unavailable Unavailable Alberry, D Chica WEED CONTROLLER Unavailable Unavailable Alberry, D Chica WEED CONTROLLER Unavailable Unavailable Alberry, D Chica WEED CONTROLLER Unavailable Unavailable Alberry, D Chica WEED CONTROLLER Unavailable Unavailable Alberry, D Chica WEED CONTROLLER Unavailable Unavailable Alberry, D Chica WEED CONTROLLER Unavailable Unavailable Alberry, D Chica WEED CONTROLLER Unavailable Unavailable Alberry, D Chica WEED CONTROLLER Unavailable Unavailable Alberry, D Chica WEED CONTROLLER Unavailable Unavailable Alberry, D Chica WEED CONTROLLER Unavailable Unavailable Alberry, D Chica WEED CONTROLLER Unavailable Unavailable Alberry, D Chica WEED CONTROLLER Unavailable Unavailable Alberry, D Chica WEED CONTROLLER Unavailable Unavailable Alberry, D Chica WEED CONTROLLER Unavailable Unavailable Alberry, D Chica WEED CONTROLLER Unavailable Unavailable Alberry, D Chica WEED CONTROLLER Unavailable Unavailable Alberry, D Chica WEED CONTROLLER Unavailable Unavailable Alberry, D Chica WEED CONTROLLER Unavailable Unavailable Alberry, D Chica WEED CONTROLLER Unavailable Unavailable Alberry, D Chica WEED CONTROLLER Unavailable Unavailable Alberry, D Chica WEED CONTROLLER Unavailable Unavailable Alberry, D Chica WEED CONTROLLER Unavailable Unavailable Alberry, D Chica WEED CONTROLLER Unavailable Unavailable Alberry, D Chica WEED CONTROLLER Unavailable Unavailable Alberry, D Chica WEED CONTROLLER Unavailable Unavailable Re-disclosure Warning The records that you [...] is protected by Article 27-F of the [facility] Public Health law. If you continue you may have access to information: Regarding HIV / AIDS; Provided by facilities licensed or operated by the [facility] Office of Mental Health; or Provided by the [facility] Office for People With Developmental Disabilities. If such information is present, then the following [facility] mandated warning applies: This information has [...] law may result in a fine or long-term sentence or both. A general authorization for the release of medical or other information is NOT sufficient authorization for further disc losure. Allergies and Adverse Reactions Type Description Substance Reaction Status Data Source(s ) Drug allergy Ibuprofen Ibuprofen Gastric bi-pass Active eCW1 ( [facility]) Family History Family Member Name Family Member Gender Family Member Status Date o f Status Description Data Source(s) Unknown Unknown Problem MEDENT ([facility], ) Aunt Maternal Dx age late 20s Encounters Encounter Providers Location Date Indications Data Source(s ) Emergency Attender: IRISH Nieves : Chica Martinez WEED CONTROLLER EMERGENCY ROOM-EMERGENCY ROOM 10/05/2020 02:15:00 AM EST - 10/05/2020 02:15:00 AM EST [facility] Patient discharged. [place] [address] [facility] [address] 10/03/2020 12:00:00 AM EST eCW1 ([facility]) Emergency Attender: JERMAINE Nieves: Chica more WEED CONTROLLER 09/30/2020 05:07:00 PM EST - 09/30/2020 05:30:00 PM EST [facility] Patient discharged. [place] [address] [facility] [address] 09/30/2020 12:00:00 AM EST eCW1 ([facility]) [place] [address] [facility] [address] 09/19/2020 12:00:00 AM EST eCW1 ([facility]) [place] [address] [facility] [address] 09/14/2020 12:00:00 AM EST eCW1 [facility] Outpatient [facility] [address] [place] [id number] 09/05/2020 12:00:00 AM EST eCW1 ([facility]) [place] [address] [facility] [address] 09/05/2020 12:00:00 AM EST eCW1 ([facility]) [place] [address] [facility] [address] 08/31/2020 12:00:00 AM EST eCW1 ([facility]) [place] [address] [facility] [address] 08/09/2020 12:00:00 AM EST eCW1 ([facility]) [place] [address] [facility] [address] 08/04/2020 12:00:00 AM EST eCW1 ([facility]) [place] [address] [facility] [address] 08/04/2020 12:00:00 AM EST eCW1 ([facility]) [place] [address] [facility] [address] 08/03/2020 12:00:00 AM EST eCW1 ([facility]) [place] [address] [facility] [address] 07/28/2020 12:00:00 AM EST eCW1 ([facility]) [place] [address] [facility] [address] 07/17/2020 12:00:00 AM EST eCW1 ([facility]) [place] [address] [facility] [address] 07/06/2020 12:00:00 AM EST eCW1 ([facility]) [place] [address] [facility] [address] 07/04/2020 12:00:00 AM EST eCW1 ([facility]) [place] [address] [facility] [address] 06/23/2020 12:00:00 AM EST eCW1 ([facility]) [place] [address] [facility] [address] 06/23/2020 12:00:00 AM EST eCW1 ([facility]) [place] [address] [facility] [address] 05/31/2020 12:00:00 AM EDT eCW1 ([facility]) [place] [address] [facility] [address] 01/15/2020 12:00:00 AM EDT eCW1 ([facility]) [facility] [place] [address] [place] [address] 11/16/2019 12:00:00 AM EDT eCW1 ([facility]) [facility] [place] [address] [facility] [address] 11/13/2019 12:00:00 AM EDT eCW1 ([facility]) [facility] [place] [address] [facility] [address] 11/13/2019 12:00:00 AM EDT eCW1 ([facility]) [facility] [place] [address] [facility] [address] 11/11/2019 12:00:00 AM EDT eCW1 ([facility]) [facility] [address] [place] [address] 10/12/2019 12:00:00 AM EST eCW1 ([facility]) [facility] [address] [place] [address] 09/30/2019 12:00:00 AM EST eCW1 ([facility]) [address] [address] 09/16/2019 12:00:00 AM EST eCW1 [facility]) Immunizations Vaccine Date Status Description Data Source(s) influenza, recombinant, quadrIvalent,injectable, prese rvative free 08/03/2020 02:03:00 PM EST completed eCW1 ([facility]) influenza, recombinant, quadrIvalent,injectable, prese rvative free 08/03/2020 02:03:00 PM EST completed eCW1 ([facility]) influenza, recombinant, quadrIvalent,injectable, prese rvative free 08/03/2020 02:03:00 PM EST completed eCW1 ([facility]) influenza, recombinant, quadrIvalent,injectable, prese rvative free 08/03/2020 02:03:00 PM EST completed eCW1 ([facility]) influenza, recombinant, quadrIvalent,injectable, prese rvative free 08/03/2020 02:03:00 PM EST completed eCW1 ([facility]) influenza, recombinant, quadrIvalent,injectable, prese rvative free 08/03/2020 02:03:00 PM EST completed eCW1 ([facility]) influenza, recombinant, quadrIvalent,injectable, prese rvative free 08/03/2020 02:03:00 PM EST completed eCW1 ([facility]) influenza, recombinant, quadrIvalent,injectable, prese rvative free 08/03/2020 02:03:00 PM EST completed eCW1 ([facility]) influenza, recombinant, quadrIvalent,injectable, prese rvative free 08/03/2020 02:03:00 PM EST completed eCW1 ([facility]) influenza, recombinant, quadrIvalent,injectable, prese rvative free 08/03/2020 02:03:00 PM EST completed eCW1 ([facility]) Medications Medication Brand Name Start Date Product Form Dose Route Admi nistrative Instructions Pharmacy Instructions Status Indications Reaction Description Data Source(s) 120 ACTUAT mometasone furoate 0.1 MG/ACT UAT Metered Dose Inhaler [Asmanex] Asmanex HFA 100 MCG/ACT Asmanex HFA 100 MCG/ACT 10/03/2020 12:00:00 AM EST 2.0 {puffs} active Asmanex HFA 100 MCG/ACT eCW1 ([facility]) Sucralfate 1000 MG Oral Tablet [Carafate] Carafate 1 GM Rohini fate 1 GM 10/03/2020 12:00:00 AM EST 1.0 {tablet_on_an_empty_stomach} active Carafate 1 GM eCW1 ([facility]) 120 ACTUAT mometasone furoate 0.1 MG/ACT UAT Metered Dose Inhaler [Asmanex] Asmanex HFA 100 MCG/ACT Asmanex HFA 100 MCG/ACT 10/03/2020 12:00:00 AM EST 2.0 {puffs} active Asmanex HFA 100 MCG/ACT eCW1 ([facility]) Qvar RediHaler 80 MCG/ACT Qvar RediHaler 80 MCG/ACT 10/03/2020 1 2:00:00 AM EST 1.0 {puff} active Qvar RediHale r 80 MCG/ACT eCW1 ([facility]) Qvar RediHaler 80 MCG/ACT Qvar RediHaler 80 MCG/ACT 10/03/2020 1 2:00:00 AM EST 1.0 {puff} active Qvar RediHale r 80 MCG/ACT eCW1 ([facility]) Sucralfate 1000 MG Oral Tablet [Carafate] Carafate 1 GM Rohini fate 1 GM 10/03/2020 12:00:00 AM EST 1.0 {tablet_on_an_empty_stomach} active Carafate 1 GM eCW1 ([facility]) 120 ACTUAT Fluticasone propionate 0.11 M G/ACTUAT Metered Dose Inhaler [Flovent] Flovent HFA 110 MCG/ACT Flovent HFA 110 MCG/ACT 10/03/2020 12:00:00 AM EST 1.0 {puff} active Flovent HFA 110 MCG/ACT eCW1 ([facility]) 120 ACTUAT Fluticasone propionate 0.11 M G/ACTUAT Metered Dose Inhaler [Flovent] Flovent HFA 110 MCG/ACT Flovent HFA 110 MCG/ACT 10/03/2020 12:00:00 AM EST 1.0 {puff} active Flovent HFA 110 MCG/ACT eCW1 ([facility]) pregabalin 75 MG Oral Capsule [Lyrica] Lyrica 75 MG Lyrica 7 5 MG 09/19/2020 12:00:00 AM EST 1.0 {capsule} active L yrica 75 MG eCW1 ([facility]) pregabalin 75 MG Oral Capsule [Lyrica] Lyrica 75 MG Lyrica 7 5 MG 09/19/2020 12:00:00 AM EST 1.0 {capsule} active L yrica 75 MG eCW1 ([facility]) pregabalin 75 MG Oral Capsule [Lyrica] Lyrica 75 MG Lyrica 7 5 MG 09/19/2020 12:00:00 AM EST 1.0 {capsule} active L yrica 75 MG eCW1 ([facility]) Albuterol Sulfate HFA 108 (90 Base) MCG/ACT Albuterol Sulfate HFA 108 (90 Base) MCG/ACT 08/08/2020 12:00:00 AM EST 1.0 {puff_as_needed} active Albuterol Sulfate HFA 108 (90 Base) MCG/ACT eCW1 ([facility]) Albuterol Sulfate HFA 108 (90 Base) MCG/ACT Albuterol Sulfate HFA 108 (90 Base) MCG/ACT 08/08/2020 12:00:00 AM EST 1.0 {puff_as_needed} active Albuterol Sulfate HFA 108 (90 Base) MCG/ACT eCW1 ([facility]) Albuterol Sulfate HFA 108 (90 Base) MCG/ACT Albuterol Sulfate HFA 108 (90 Base) MCG/ACT 08/08/2020 12:00:00 AM EST 1.0 {puff_as_needed} active Albuterol Sulfate HFA 108 (90 Base) MCG/ACT eCW1 ([facility]) Albuterol Sulfate HFA 108 (90 Base) MCG/ACT Albuterol Sulfate HFA 108 (90 Base) MCG/ACT 08/08/2020 12:00:00 AM EST 1.0 {puff_as_needed} active Albuterol Sulfate HFA 108 (90 Base) MCG/ACT eCW1 ([facility]) Albuterol Sulfate HFA 108 (90 Base) MCG/ACT Albuterol Sulfate HFA 108 (90 Base) MCG/ACT 08/08/2020 12:00:00 AM EST 1.0 {puff_as_needed} active Albuterol Sulfate HFA 108 (90 Base) MCG/ACT eCW1 ([facility]) Albuterol Sulfate HFA 108 (90 Base) MCG/ACT Albuterol Sulfate HFA 108 (90 Base) MCG/ACT 08/08/2020 12:00:00 AM EST 1.0 {puff_as_needed} active Albuterol Sulfate HFA 108 (90 Base) MCG/ACT eCW1 ([facility]) Albuterol Sulfate HFA 108 (90 Base) MCG/ACT Albuterol Sulfate HFA 108 (90 Base) MCG/ACT 08/08/2020 12:00:00 AM EST 1.0 {puff_as_needed} active Albuterol Sulfate HFA 108 (90 Base) MCG/ACT eCW1 ([facility]) Albuterol Sulfate HFA 108 (90 Base) MCG/ACT Albuterol Sulfate HFA 108 (90 Base) MCG/ACT 08/08/2020 12:00:00 AM EST 1.0 {puff_as_needed} active Albuterol Sulfate HFA 108 (90 Base) MCG/ACT eCW1 ([facility]) Albuterol Sulfate HFA 108 (90 Base) MCG/ACT Albuterol Sulfate HFA 108 (90 Base) MCG/ACT 08/08/2020 12:00:00 AM EST 1.0 {puff_as_needed} active Albuterol Sulfate HFA 108 (90 Base) MCG/ACT eCW1 ([facility]) RA Saline Solution - RA Saline Solution - 08/03/2020 12:00:00 AM EST active RA Saline Solution - eCW1 ([facility]) RA Saline Solution - RA Saline Solution - 08/03/2020 12:00:00 AM EST active RA Saline Solution - eCW1 ([facility]) Hydroxyzine Hydrochloride 25 MG Oral Tablet HydrOXYzin e HCl 25 MG HydrOXYzine HCl 25 MG 08/03/2020 12:00:00 AM EST 1.0 {tablet_as_needed} active HydrOXYzine HCl 25 MG eCW1 ([facility]) RA Saline Solution - RA Saline Solution - 08/03/2020 12:00:00 AM EST active RA Saline Solution - eCW1 ([facility]) Hydroxyzine Hydrochloride 25 MG Oral Tablet HydrOXYzin e HCl 25 MG HydrOXYzine HCl 25 MG 08/03/2020 12:00:00 AM EST 1.0 {tablet_as_needed} active HydrOXYzine HCl 25 MG eCW1 ([facility]) RA Saline Solution - RA Saline Solution - 08/03/2020 12:00:00 AM EST active RA Saline Solution - eCW1 ([facility]) Hydroxyzine Hydrochloride 25 MG Oral Tablet HydrOXYzin e HCl 25 MG HydrOXYzine HCl 25 MG 08/03/2020 12:00:00 AM EST 1.0 {tablet_as_needed} active HydrOXYzine HCl 25 MG eCW1 ([facility]) RA Saline Solution - RA Saline Solution - 08/03/2020 12:00:00 AM EST active RA Saline Solution - eCW1 ([facility]) RA Saline Solution - RA Saline Solution - 08/03/2020 12:00:00 AM EST active RA Saline Solution - eCW1 ([facility]) RA Saline Solution - RA Saline Solution - 08/03/2020 12:00:00 AM EST active RA Saline Solution - eCW1 ([facility]) Hydroxyzine Hydrochloride 25 MG Oral Tablet HydrOXYzin e HCl 25 MG HydrOXYzine HCl 25 MG 08/03/2020 12:00:00 AM EST 1.0 {tablet_as_needed} active HydrOXYzine HCl 25 MG eCW1 ([facility]) RA Saline Solution - RA Saline Solution - 08/03/2020 12:00:00 AM EST active RA Saline Solution - eCW1 ([facility]) Hydroxyzine Hydrochloride 25 MG Oral Tablet HydrOXYzin e HCl 25 MG HydrOXYzine HCl 25 MG 08/03/2020 12:00:00 AM EST 1.0 {tablet_as_needed} active HydrOXYzine HCl 25 MG eCW1 ([facility]) Hydroxyzine Hydrochloride 25 MG Oral Tablet HydrOXYzin e HCl 25 MG HydrOXYzine HCl 25 MG 08/03/2020 12:00:00 AM EST 1.0 {tablet_as_needed} active HydrOXYzine HCl 25 MG eCW1 ([facility]) Hydroxyzine Hydrochloride 25 MG Oral Tablet HydrOXYzin e HCl 25 MG HydrOXYzine HCl 25 MG 08/03/2020 12:00:00 AM EST 1.0 {tablet_as_needed} active HydrOXYzine HCl 25 MG eCW1 ([facility]) Hydroxyzine Hydrochloride 25 MG Oral Tablet HydrOXYzin e HCl 25 MG HydrOXYzine HCl 25 MG 08/03/2020 12:00:00 AM EST 1.0 {tablet_as_needed} active HydrOXYzine HCl 25 MG eCW1 ([facility]) RA Saline Solution - RA Saline Solution - 08/03/2020 12:00:00 AM EST active RA Saline Solution - eCW1 ([facility]) RA Saline Solution - RA Saline Solution - 08/03/2020 12:00:00 AM EST active RA Saline Solution - eCW1 ([facility]) Hydroxyzine Hydrochloride 25 MG Oral Tablet HydrOXYzin e HCl 25 MG HydrOXYzine HCl 25 MG 08/03/2020 12:00:00 AM EST 1.0 {tablet_as_needed} active HydrOXYzine HCl 25 MG eCW1 ([facility]) Hydroxyzine Hydrochloride 25 MG Oral Tablet HydrOXYzin e HCl 25 MG HydrOXYzine HCl 25 MG 08/03/2020 12:00:00 AM EST 1.0 {tablet_as_needed} active HydrOXYzine HCl 25 MG eCW1 ([facility]) Primidone 50 MG Oral Tablet Primidone 50 MG 07/06/2020 12:00:00 AM EST active Primidone 50 MG eCW1 ([facility]) Primidone 50 MG Oral Tablet Primidone 50 MG 07/06/2020 12:00:00 AM EST active Primidone 50 MG eCW1 ([facility]) Primidone 50 MG Oral Tablet Primidone 50 MG 07/06/2020 12:00:00 AM EST active Primidone 50 MG eCW1 ([facility]) Primidone 50 MG Oral Tablet Primidone 50 MG 07/06/2020 12:00:00 AM EST active Primidone 50 MG eCW1 ([facility]) Primidone 50 MG Oral Tablet Primidone 50 MG 07/06/2020 12:00:00 AM EST active Primidone 50 MG eCW1 ([facility]) Primidone 50 MG Oral Tablet Primidone 50 MG 07/06/2020 12:00:00 AM EST active Primidone 50 MG eCW1 ([facility]) Primidone 50 MG Oral Tablet Primidone 50 MG 07/06/2020 12:00:00 AM EST active Primidone 50 MG eCW1 ([facility]) Primidone 50 MG Oral Tablet Primidone 50 MG 07/06/2020 12:00:00 AM EST active Primidone 50 MG eCW1 ([facility]) Primidone 50 MG Oral Tablet Primidone 50 MG 07/06/2020 12:00:00 AM EST active Primidone 50 MG eCW1 ([facility]) doxycycline hyclate 100 MG Oral Capsule Doxycycline Hy clate 100 MG Doxycycline Hyclate 100 MG 07/04/2020 12:00:00 AM EST 1.0 {capsule} active Doxycycline Hyclate 100 MG eCW1 ([facility]) doxycycline hyclate 100 MG Oral Capsule Doxycycline Hy clate 100 MG Doxycycline Hyclate 100 MG 07/04/2020 12:00:00 AM EST 1.0 {capsule} suspended Doxycycline Hyclate 100 MG eCW1 ([facility]) doxycycline hyclate 100 MG Oral Capsule Doxycycline Hy clate 100 MG Doxycycline Hyclate 100 MG 07/04/2020 12:00:00 AM EST 1.0 {capsule} suspended Doxycycline Hyclate 100 MG eCW1 ([facility]) doxycycline hyclate 100 MG Oral Capsule Doxycycline Hy clate 100 MG Doxycycline Hyclate 100 MG 07/04/2020 12:00:00 AM EST 1.0 {capsule} active Doxycycline Hyclate 100 MG eCW1 ([facility]) doxycycline hyclate 100 MG Oral Capsule Doxycycline Hy clate 100 MG Doxycycline Hyclate 100 MG 07/04/2020 12:00:00 AM EST 1.0 {capsule} active Doxycycline Hyclate 100 MG eCW1 ([facility]) doxycycline hyclate 100 MG Oral Capsule Doxycycline Hy clate 100 MG Doxycycline Hyclate 100 MG 07/04/2020 12:00:00 AM EST 1.0 {capsule} active Doxycycline Hyclate 100 MG eCW1 ([facility]) doxycycline hyclate 100 MG Oral Capsule Doxycycline Hy clate 100 MG Doxycycline Hyclate 100 MG 07/04/2020 12:00:00 AM EST 1.0 {capsule} active Doxycycline Hyclate 100 MG eCW1 ([facility]) doxycycline hyclate 100 MG Oral Capsule Doxycycline Hy clate 100 MG Doxycycline Hyclate 100 MG 07/04/2020 12:00:00 AM EST 1.0 {capsule} suspended Doxycycline Hyclate 100 MG eCW1 ([facility]) doxycycline hyclate 100 MG Oral Capsule Doxycycline Hy clate 100 MG Doxycycline Hyclate 100 MG 07/04/2020 12:00:00 AM EST 1.0 {capsule} suspended Doxycycline Hyclate 100 MG eCW1 ([facility]) doxycycline hyclate 100 MG Oral Capsule Doxycycline Hy clate 100 MG Doxycycline Hyclate 100 MG 07/04/2020 12:00:00 AM EST 1.0 {capsule} active Doxycycline Hyclate 100 MG eCW1 ([facility]) doxycycline hyclate 100 MG Oral Capsule Doxycycline Hy clate 100 MG Doxycycline Hyclate 100 MG 07/04/2020 12:00:00 AM EST 1.0 {capsule} active Doxycycline Hyclate 100 MG eCW1 ([facility]) doxycycline hyclate 100 MG Oral Capsule Doxycycline Hy clate 100 MG Doxycycline Hyclate 100 MG 07/04/2020 12:00:00 AM EST 1.0 {capsule} active Doxycycline Hyclate 100 MG eCW1 ([facility]) doxycycline hyclate 100 MG Oral Capsule Doxycycline Hy clate 100 MG Doxycycline Hyclate 100 MG 07/04/2020 12:00:00 AM EST 1.0 {capsule} suspended Doxycycline Hyclate 100 MG eCW1 ([facility]) doxycycline hyclate 100 MG Oral Capsule Doxycycline Hy clate 100 MG Doxycycline Hyclate 100 MG 07/04/2020 12:00:00 AM EST 1.0 {capsule} active Doxycycline Hyclate 100 MG eCW1 ([facility]) Prednisone 20 MG Oral Tablet PredniSONE 20 MG PredniSONE 20 MG 06/23/2020 12:00:00 AM EST 2.0 {tablets} suspended PredniSONE 20 MG eCW1 ([facility]) Prednisone 20 MG Oral Tablet PredniSONE 20 MG PredniSONE 20 MG 06/23/2020 12:00:00 AM EST 2.0 {tablets} active P redniSONE 20 MG eCW1 ([facility]) Zinc 50 MG Zinc 50 MG 06/23/2020 12:00:00 AM EST 1.0 {tablet} active Zinc 50 MG eCW1 ([facility]) Zithromax Z-Tomer 250 MG Zithromax Z-Tomer 250 MG 06/23/2020 12:00:[address] suspended Zithromax Z-Tomer 250 MG eC W1 ([facility]) Zinc 50 MG Zinc 50 MG 06/23/2020 12:00:00 AM EST 1.0 {tablet} active Zinc 50 MG eCW1 ([facility]) Ascorbic Acid 500 MG Oral Tablet Vitamin C 500 MG Vitamin C 500 MG 06/23/2020 12:00:00 AM EST 1.0 {tablet} active Vi tamin C 500 MG eCW1 ([facility]) Zinc 50 MG Zinc 50 MG 06/23/2020 12:00:00 AM EST 1.0 {tablet} active Zinc 50 MG eCW1 ([facility]) Ascorbic Acid 500 MG Oral Tablet Vitamin C 500 MG Vitamin C 500 MG 06/23/2020 12:00:00 AM EST 1.0 {tablet} active Vi tamin C 500 MG eCW1 ([facility]) Zinc 50 MG Zinc 50 MG 06/23/2020 12:00:00 AM EST 1.0 {tablet} active Zinc 50 MG eCW1 ([facility]) Zithromax Z-Tomer 250 MG Zithromax Z-Tomer 250 MG 06/23/2020 12:00:[address] suspended Zithromax Z-Tomer 250 MG eC W1 ([facility]) Prednisone 20 MG Oral Tablet PredniSONE 20 MG PredniSONE 20 MG 06/23/2020 12:00:00 AM EST 2.0 {tablets} suspended PredniSONE 20 MG eCW1 ([facility]) Zithromax Z-Tomer 250 MG Zithromax Z-Tomer 250 MG 06/23/2020 12:00:[address] suspended Zithromax Z-Tomer 250 MG eC W1 ([facility]) Prednisone 20 MG Oral Tablet PredniSONE 20 MG PredniSONE 20 MG 06/23/2020 12:00:00 AM EST 2.0 {tablets} suspended PredniSONE 20 MG eCW1 ([facility]) Prednisone 20 MG Oral Tablet PredniSONE 20 MG PredniSONE 20 MG 06/23/2020 12:00:00 AM EST 2.0 {tablets} active P redniSONE 20 MG eCW1 ([facility]) Prednisone 20 MG Oral Tablet PredniSONE 20 MG PredniSONE 20 MG 06/23/2020 12:00:00 AM EST 2.0 {tablets} suspended PredniSONE 20 MG eCW1 ([facility]) Ascorbic Acid 500 MG Oral Tablet Vitamin C 500 MG Vitamin C 500 MG 06/23/2020 12:00:00 AM EST 1.0 {tablet} active Vi tamin C 500 MG eCW1 ([facility]) Zithromax Z-Tomer 250 MG Zithromax Z-Tomer 250 MG 06/23/2020 12:00:[address] suspended Zithromax Z-Tomer 250 MG eC W1 ([facility]) Zithromax Z-Tomer 250 MG Zithromax Z-Tomer 250 MG 06/23/2020 12:00:[address] active Zithromax Z-Tomer 250 MG eC W1 ([facility]) Prednisone 20 MG Oral Tablet PredniSONE 20 MG PredniSONE 20 MG 06/23/2020 12:00:00 AM EST 2.0 {tablets} suspended PredniSONE 20 MG eCW1 ([facility]) Zithromax Z-Tomer 250 MG Zithromax Z-Tomer 250 MG 06/23/2020 12:00:[address] active Zithromax Z-Tomer 250 MG eC W1 ([facility]) Zinc 50 MG Zinc 50 MG 06/23/2020 12:00:00 AM EST 1.0 {tablet} active Zinc 50 MG eCW1 ([facility]) Prednisone 20 MG Oral Tablet PredniSONE 20 MG PredniSONE 20 MG 06/23/2020 12:00:00 AM EST 2.0 {tablets} suspended PredniSONE 20 MG eCW1 ([facility]) Prednisone 20 MG Oral Tablet PredniSONE 20 MG PredniSONE 20 MG 06/23/2020 12:00:00 AM EST 2.0 {tablets} suspended PredniSONE 20 MG eCW1 ([facility]) Ascorbic Acid 500 MG Oral Tablet Vitamin C 500 MG Vitamin C 500 MG 06/23/2020 12:00:00 AM EST 1.0 {tablet} active Vi tamin C 500 MG eCW1 ([facility]) Prednisone 20 MG Oral Tablet PredniSONE 20 MG PredniSONE 20 MG 06/23/2020 12:00:00 AM EST 2.0 {tablets} suspended PredniSONE 20 MG eCW1 ([facility]) Zinc 50 MG Zinc 50 MG 06/23/2020 12:00:00 AM EST 1.0 {tablet} active Zinc 50 MG eCW1 ([facility]) Prednisone 20 MG Oral Tablet PredniSONE 20 MG PredniSONE 20 MG 06/23/2020 12:00:00 AM EST 2.0 {tablets} suspended PredniSONE 20 MG eCW1 ([facility]) Ascorbic Acid 500 MG Oral Tablet Vitamin C 500 MG Vitamin C 500 MG 06/23/2020 12:00:00 AM EST 1.0 {tablet} active Vi tamin C 500 MG eCW1 ([facility]) Zinc 50 MG Zinc 50 MG 06/23/2020 12:00:00 AM EST 1.0 {tablet} active Zinc 50 MG eCW1 ([facility]) Zithromax Z-Tomer 250 MG Zithromax Z-Tomer 250 MG 06/23/2020 12:00:[address] suspended Zithromax Z-Tomer 250 MG eC W1 ([facility]) Zinc 50 MG Zinc 50 MG 06/23/2020 12:00:00 AM EST 1.0 {tablet} active Zinc 50 MG eCW1 ([facility]) Zinc 50 MG Zinc 50 MG 06/23/2020 12:00:00 AM EST 1.0 {tablet} active Zinc 50 MG eCW1 ([facility]) Ascorbic Acid 500 MG Oral Tablet Vitamin C 500 MG Vitamin C 500 MG 06/23/2020 12:00:00 AM EST 1.0 {tablet} active Vi tamin C 500 MG eCW1 ([facility]) Ascorbic Acid 500 MG Oral Tablet Vitamin C 500 MG Vitamin C 500 MG 06/23/2020 12:00:00 AM EST 1.0 {tablet} active Vi tamin C 500 MG eCW1 ([facility]) Zithromax Z-Tomer 250 MG Zithromax Z-Tomer 250 MG 06/23/2020 12:00:[address] suspended Zithromax Z-Tomer 250 MG eC W1 ([facility]) Ascorbic Acid 500 MG Oral Tablet Vitamin C 500 MG Vitamin C 500 MG 06/23/2020 12:00:00 AM EST 1.0 {tablet} active Vi tamin C 500 MG eCW1 ([facility]) Prednisone 20 MG Oral Tablet PredniSONE 20 MG PredniSONE 20 MG 06/23/2020 12:00:00 AM EST 2.0 {tablets} suspended PredniSONE 20 MG eCW1 ([facility]) Zithromax Z-Tomer 250 MG Zithromax Z-Tomer 250 MG 06/23/2020 12:00:[address] suspended Zithromax Z-Tomer 250 MG eC W1 ([facility]) Ascorbic Acid 500 MG Oral Tablet Vitamin C 500 MG Vitamin C 500 MG 06/23/2020 12:00:00 AM EST 1.0 {tablet} active Vi tamin C 500 MG eCW1 ([facility]) Ascorbic Acid 500 MG Oral Tablet Vitamin C 500 MG Vitamin C 500 MG 06/23/2020 12:00:00 AM EST 1.0 {tablet} active Vi tamin C 500 MG eCW1 ([facility]) Zinc 50 MG Zinc 50 MG 06/23/2020 12:00:00 AM EST 1.0 {tablet} active Zinc 50 MG eCW1 ([facility]) Zithromax Z-Tomer 250 MG Zithromax Z-Tomer 250 MG 06/23/2020 12:00:[address] suspended Zithromax Z-Tomer 250 MG eC W1 ([facility]) Ascorbic Acid 500 MG Oral Tablet Vitamin C 500 MG Vitamin C 500 MG 06/23/2020 12:00:00 AM EST 1.0 {tablet} active Vi tamin C 500 MG eCW1 ([facility]) Zinc 50 MG Zinc 50 MG 06/23/2020 12:00:00 AM EST 1.0 {tablet} active Zinc 50 MG eCW1 ([facility]) Ascorbic Acid 500 MG Oral Tablet Vitamin C 500 MG Vitamin C 500 MG 06/23/2020 12:00:00 AM EST 1.0 {tablet} active Vi tamin C 500 MG eCW1 ([facility]) Zithromax Z-Tomer 250 MG Zithromax Z-Tomer 250 MG 06/23/2020 12:00:[address] suspended Zithromax Z-Tomer 250 MG eC W1 ([facility]) Zinc 50 MG Zinc 50 MG 06/23/2020 12:00:00 AM EST 1.0 {tablet} active Zinc 50 MG eCW1 ([facility]) Zinc 50 MG Zinc 50 MG 06/23/2020 12:00:00 AM EST 1.0 {tablet} active Zinc 50 MG eCW1 ([facility]) Zithromax Z-Tomer 250 MG Zithromax Z-Tomer 250 MG 06/23/2020 12:00:[address] suspended Zithromax Z-Tomer 250 MG eC W1 ([facility]) Prednisone 20 MG Oral Tablet PredniSONE 20 MG PredniSONE 20 MG 06/23/2020 12:00:00 AM EST 2.0 {tablets} suspended PredniSONE 20 MG eCW1 ([facility]) Zinc 50 MG Zinc 50 MG 06/23/2020 12:00:00 AM EST 1.0 {tablet} active Zinc 50 MG eCW1 ([facility]) Zinc 50 MG Zinc 50 MG 06/23/2020 12:00:00 AM EST 1.0 {tablet} active Zinc 50 MG eCW1 ([facility]) Zithromax Z-Tomer 250 MG Zithromax Z-Tomer 250 MG 06/23/2020 12:00:[address] suspended Zithromax Z-Tomer 250 MG eC W1 ([facility]) Prednisone 20 MG Oral Tablet PredniSONE 20 MG PredniSONE 20 MG 06/23/2020 12:00:00 AM EST 2.0 {tablets} active P redniSONE 20 MG eCW1 ([facility]) Ascorbic Acid 500 MG Oral Tablet Vitamin C 500 MG Vitamin C 500 MG 06/23/2020 12:00:00 AM EST 1.0 {tablet} active Vi tamin C 500 MG eCW1 ([facility]) Prednisone 20 MG Oral Tablet PredniSONE 20 MG PredniSONE 20 MG 06/23/2020 12:00:00 AM EST 2.0 {tablets} suspended PredniSONE 20 MG eCW1 ([facility]) Ascorbic Acid 500 MG Oral Tablet Vitamin C 500 MG Vitamin C 500 MG 06/23/2020 12:00:00 AM EST 1.0 {tablet} active Vi tamin C 500 MG eCW1 ([facility]) Prednisone 20 MG Oral Tablet PredniSONE 20 MG PredniSONE 20 MG 06/23/2020 12:00:00 AM EST 2.0 {tablets} suspended PredniSONE 20 MG eCW1 ([facility]) Zithromax Z-Tomer 250 MG Zithromax Z-Tomer 250 MG 06/23/2020 12:00:[address] active Zithromax Z-Tomer 250 MG eC W1 ([facility]) Zithromax Z-Tomer 250 MG Zithromax Z-Tomer 250 MG 06/23/2020 12:00:[address] suspended Zithromax Z-Tomer 250 MG eC W1 ([facility]) Ascorbic Acid 500 MG Oral Tablet Vitamin C 500 MG Vitamin C 500 MG 06/23/2020 12:00:00 AM EST 1.0 {tablet} active Vi tamin C 500 MG eCW1 ([facility]) Zithromax Z-Tomer 250 MG Zithromax Z-Tomer 250 MG 06/23/2020 12:00:[address] suspended Zithromax Z-Tomer 250 MG eC W1 ([facility]) Zinc 50 MG Zinc 50 MG 06/23/2020 12:00:00 AM EST 1.0 {tablet} active Zinc 50 MG eCW1 ([facility]) Ascorbic Acid 500 MG Oral Tablet Vitamin C 500 MG Vitamin C 500 MG 06/23/2020 12:00:00 AM EST 1.0 {tablet} active Vi tamin C 500 MG eCW1 ([facility]) 90 mcg/actuation 10/26/2019 12:00:00 AM EDT HFA [...] 12:00:00 AM EST active 1 capsule eCW1 ([facility]) 8 mg 10/12/2019 12:00:00 AM [...] 00 AM EST active 1 tablet eCW1 ([facility]) 875 mg 09/16/2019 12:00:00 AM [...] type / Coverage type Policy ID Covered republican ID Covered republican's relationship to moore Policy Moore Plan Information FORMERLY [facility] COMMUNITY [id number] SP [id number] [facility] [id number] S [id number] [facility] [id number] SP [id number] MEDICAID [id number] SP [id number] ANS-Medicaid [id number] ANS-Medicaid [id number] ANSI-Medicaid [id number] ANSI-Medicaid [id number] ANSI-Medicaid [id number] ANSI-Medicaid [id number] ANSI-Medicaid [id number] ANSI-Medicaid [id number] ANSI-Medicaid [id number] ANSI-Medicaid [id number] ANSI-Medicaid [id number] ANSI-Medicaid [id number] ANSI-Medicaid [id number] ANSI-Medicaid [id number] ANSI-Medicaid [id number] ANSI-Medicaid [id number] [employer] COMMUNITY PLAN MCDHMO [id number] SP [id number] ANSI-Medicaid [id number] [facility] Health Maintenance Organization (HMO) [id number] Self [id number] [facility](MCAID) O [id number] S [id number] [facility] Health Maintenance Organization (HMO) [id number] Self [id number] ANSI-Medicaid [id number] [facility] ([facility] [id number] Self [id number] [facility] (HMO) [id number] Self [id number] [facility] Health Maintenance Organization (HMO) [id number] Self [id number] [employer] COMMUNITY PLAN MCDHMO [id number] SP [id number] [employer] COMMUNITY PLAN MCDHMO [id number] SP [id number] [facility] (HMO) [id number] Self [id number] SELF PAY ONLY [id number] SP [id number] [facility] Health Maintenance Organization (HMO) Self [employer] Community Plan Commercial Self UHC MEDICAID [id number] Luisa [id number] [facility](MCAID) P UNAVAILABLE S UNAVAILABLE EXCELLUS BCBS P [id number] S [id number] [employer] [id number] 18 [id number] [facility] [facility] [facility] [id number] 18 [id number] [employer] [id number] Problems, Conditions, and Diagnoses Code Display Name Description Problem Type Effective Dates Data Source(s) K27.9 31565277 PUD (peptic ulcer disease) Problem 1 12:00:00 AM EST eCW1 ([facility]) G25.0 [id number] Essential tremor Problem 09/05/2020 12:00:00 AM EST eCW1 ([facility]) F41.0 749076938 Panic attacks Problem 08/03/2020 12:00:00 AM EST eCW1 ([facility]) F41.9 497392555 Anxiety disorder, unspecified Problem 11/13/2019 12:00:00 AM EDT eCW1 ([facility]) F41.8 014474257 Anxiety with depression Problem 11/13/2019 1 2:00:00 AM EDT eCW1 ([facility]) F41.9 097562303 Anxiety disorder, unspecified Problem 11/13/2019 12:00:00 AM EDT eCW1 ([facility]) F41.8 864649294 Anxiety with depression Problem 11/13/2019 1 2:00:00 AM EDT eCW1 ([facility]) Z86.39 Vitamin B deficiency History of vitamin B deficiency P roblem 10/12/2019 12:00:00 AM EST eCW1 ([facility]) Z86.39 Vitamin B deficiency History of vitamin B deficiency P roblem 10/12/2019 12:00:00 AM EST eCW1 ([facility]) Z79.51 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 (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 Diagnosis 09/30/2020 05:07:00 PM [facility] 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 [facility] (CURRENT) DRUG THERAPY Diagnosis 09/30/2020 05:07:00 PM [facility] F17.210 Nicotine dependence, cigarettes, uncompl icated NICOTINE DEPENDENCE, CIGARETTES, UNCOMPLICATED Diagnosis 09/30/2020 05:07:00 PM [facility] J45.909 Unspecified asthma, uncomplicated UNSPECIFIED THMA, UNCOMPLICATED Diagnosis 09/30/2020 05:07:00 PM [facility] R60.0 Localized edema LOCALIZED EDEMA Diagnosis 09/30/2020 05:0 7:00 PM [facility] M79.89 Other specified soft tissue disorders OT HER SPECIFIED SOFT TISSUE DISORDERS Diagnosis 09/30/2020 05:07:00 PM [facility] Surgeries/Procedures Procedure Description Date Indications Data Source(s) Immunization: Flublok Quadrivalent (18 years & older) 0.5mL IM (Influenza) 08/03/2020 12:00:00 AM EST eCW1 ([facility] PHYSICIAN TELEPHONE EVALUATION 21-30 MIN 11/13/2019 12 :00:00 AM EDT eCW1 ([facility]) Results ID Date Data Source [id number] 10/05/2020 11:02:00 PM [facility] Patient: ADRIENNE AYALA Re port - [facility].VisitID: [id number] [place] [address] [phone], FRegistration Date/Time: 10/05/2020 02:10 Weight:86.1 kg (S). Height/Length:63 inches (S). BMI:33.6 PAST HISTORYProblems:Pedal Edema [Active].Fibromyalgia [Chronic].Anxiety Reaction [Chronic]. (Panic attacks )Chronic nausea [Chronic].Asthma [Chronic].Gastroesophageal Reflux Disease [Chronic].Peptic Ulcer Disease [Chronic].Pneumonia [Resolved].DVT - Deep Venous Thrombosis [RuleOut]. Additional Surgeries:Cleft palate lip repair.Cleft Palate Repair.. (X2)Gastric Resection.Hysterectomy.Right foot surgery. Medications:Cymbalta Oral (Capsule Delayed Release Particles 60 mg) 1 capsule, daily every AM, last dose yesterday am .Gabapentin Oral (Capsule 300 mg) 1 capsule, 3x a day, last dose last night at 2100.hydrOXYzine HCl Oral (Tablet 25 mg) 1 tablet, 3x a day, last dose yesterday am .Lyrica Oral (Capsule 75 mg) 1 capsule, 2x a day, last dose last night at 2100.Omeprazole Oral (Capsule Delayed Release 40 mg) 1 capsule, 2x a day, last dose last night at 2100.Primidone Oral (Tablet 50 mg) 1 tablet, 2x a day, last dose last night at 2100.tiZANidine HCl Oral (Tablet 4 mg) 1 tablet, 3x a day as needed, last dose a week ago at 2100.Ventolin HFA Inhalation (Aerosol Solution 108 (90 Base) mcg/act) 2 puffs , 4x a day as needed, last dose yesterday afternoon .Zofran Oral (Tablet 4 mg) 1 tablet, q6h as needed, last dose yesterday am . Allergies:Ibuprofen. Definite Moderate(vomiting). FAMILY HISTORYMother: Hypertension. INSTRUCTIONSYour Current Medications: Your current home medications have been reviewed. CONTINUE TAKING THE FOLLOWING MEDICATIONS:Cymbalta Oral : Capsule Delayed Release Particles 60 mg, 1 capsule daily, Last: yesterday am, every AM. Gabapentin Oral : Capsule 300 mg, 1 capsule 3x a day, Last: last night at 2100. hydrOXYzine HCl Oral : Tablet 25 mg, 1 tablet 3x a day, Last: yesterday am. Lyrica Oral : Capsule 75 mg, 1 capsule 2x a day, Last: last night at 2100. Omeprazole Oral : Capsule Delayed Release 40 mg, 1 capsule 2x a day, Last: last night at 2100. Primidone Oral : Tablet 50 mg, 1 tablet 2x a day, Last: last night at 2100. tiZANidine HCl Oral : Tablet 4 mg, 1 tablet 3x a day, Last: a week ago at 2100, prn. Ventolin HFA Inhalation : Aerosol Solution 108 (90 Base) mcg/act, 2 puffs 4x a day, Last: yesterday afternoon, prn. Zofran Oral : Tablet 4 mg, 1 tablet q6h, Last: yesterday am, prn. (Electronically signed by Dolores Alcantar 10/05/2020 23:01) Name Value Range Interpretation Code Description Data Shell rce(s) Supporting Document(s) ID Date Data Source [id number] 10/05/2020 07:15:00 AM EST [facility] Right Ankle DATE OF EXAMINATION: 10/05/19 21 2:32 EST ANKLE COMPLETE INDICATION: Pain COMPARISON: None TECHNIQUE: 4 views were obtained. FINDINGS: There is no significant soft tissue swelling. The underlying bonesare normal. There are no fractures. The ankle mortise is anatomicallymaintained. IMPRESSION: Negative Electronically signed in PS360 by: Sim Rodriguez M.D. 10/05/2020 7:10 EST Name Value Range Interpretation Code Description Data Shell rce(s) Supporting Document(s) ID Date Data Source [id number] 10/05/2020 03:18:00 AM EST [facility] TSYSORDER [id number] Name Value Range Interpretation Code Description Data Shell rce(s) Supporting Document(s) MAGNESIUM 2.0 mg/dL 1.8-2.4 [facility] ID Date Data Source [id number] 10/05/2020 03:18:00 AM EST [facility] TSYSORDER [id number] Name Value Range Interpretation Code Description Data Shell rce(s) Supporting Document(s) LIPASE 205 U/L [id number] [facility] ID Date Data Source [id number] 10/05/2020 03:18:00 AM EST [facility] TSYSORDER [id number] Name Value Range Interpretation Code Description Data Shell rce(s) Supporting Document(s) GLUCOSE 91 mg/dL 74-106 [facility] BLOOD UREA NITROGEN 7 mg/dL 7-18 [facility] ital CREATININE 0.41 mg/dL 0.6-1.0 L [facility] SODIUM 137 mmol/L 136-145 [facility] POTASSIUM 4.1 mmol/L 3.5-5.1 [facility] CHLORIDE 100 mmol/L 98-107 [facility] CO2 29 mmol/L 21-32 [facility] CALCIUM 8.4 mg/dL 8.5-10.1 L [facility] ANION GAP 8.0 mmol/L 5-12 [facility] GLOMERULAR FILTRATION RATE >90 mL/min [facility] GFR IS CALCULATED IN mL/min/1.73m2 [place] L FUNCTION: >90MILDLY DECREASED: 60-89MILDY TO MODERATELY DECREASED: 45-59 MODERATELY TO SEVERELY DECREASED: 30-44SEVERELY DECREASED: 15-29RENAL FAILURE: <15 AST 158 U/L 15-37 H [facility] ALT 77 U/L 12-78 [facility] ALKALINE PHOSPHATASE 139 U/L 46-116 H [facility] pital TOTAL BILIRUBIN 0.4 mg/dL 0.2-1.0 [facility] TOTAL PROTEIN 7.2 g/dl 6.4-8.2 [facility] ALBUMIN 3.6 gm/dL 3.4-5.0 [facility] ID Date Data Source [id number] 10/05/2020 03:28:[address] [facility] l TSYSORDER [id number] Name Value Range Interpretation Code Description Data Shell rce(s) Supporting Document(s) DDIMER 0.55 mg/LFEU 0.19-0.60 [facility] ID Date Data Source [id number] 10/05/2020 03:17:00 AM [facility] l TSYSORDER [id number] Name Value Range Interpretation Code Description Data Shell rce(s) Supporting Document(s) PARTIAL THROMBOPLASTIN TIME 22.5 SECONDS 21.2-27.3 [facility] ID Date Data Source [id number] 10/05/2020 03:17:00 AM [facility] l TSYSORDER [id number] Name Value Range Interpretation Code Description Data Shell rce(s) Supporting Document(s) PROTHROMBIN TIME (PATIENT) 10.1 SECONDS 9.1-11.6 [facility] INR 0.97 0.87-1.06 [facility] ID Date Data Source [id number] 10/05/2020 02:50:00 AM [facility] l TSYSORDER [id number] Name Value Range Interpretation Code Description Data Shell rce(s) Supporting Document(s) WHITE BLOOD COUNT 6.9 K/mm3 4.0-10.0 [facility] al RED BLOOD COUNT 4.11 M/mm3 4.00-5.50 [facility] HEMOGLOBIN 13.8 gm/dL 12.0-16.0 [facility] HEMATOCRIT 39.6 % 36.0-48.8 [facility] MEAN CELL VOLUME 96.4 fl 80-96 H [facility] MEAN CORPUSCULAR HEMOGLOBIN 33.6 pg 27.0-31.0 H [facility] MEAN CORPUSCULAR HGB CONC 34.8 g/dl 32.0-36.0 [facility] RED CELL DISTRIBUTION WIDTH 12.9 % 10.0-14.5 [facility] PLATELET COUNT 126 K/mm3 172-450 L [facility] MEAN PLATELET VOLUME 9.6 fl 9.0-13.0 [facility] pital GRAN % 46.7 % 50-80.0 L [facility] IG% 0.1 % 0.0-0.2 [facility] LYMPH % 37.2 % 25.0-50.0 [facility] MONO % 7.1 % 2.0-10.0 [facility] EOS % 8.3 % 0-5.0 H [facility] BASO % 0.6 % 0.0-2.0 [facility] GRAN # 3.2 K/mm3 2.0-8.00 [facility] IG# 0.0 K/mm3 0.0-0.2 [facility] LYMPH # 2.6 K/mm3 1.0-5.0 [facility] MONO # 0.5 K/mm3 0.10-1.20 [facility] EOS # 0.6 K/mm3 0.0-0.5 H [facility] BASO # 0.0 K/mm3 0.0-0.2 [facility] ID Date Data Source [id number] 10/05/2020 02:41:00 AM [facility] ital TSYSORDER [id number] Name Value Range Interpretation Code Description Data Shell rce(s) Supporting Document(s) URINE COLOR. [facility] URINE APPEARANCE CLEAR [facility] l URINE GLUCOSE (UA) NEGATIVE mg/dL NEGATIVE [facility] URINE BILIRUBIN NEGATIVE NEGATIVE [facility] URINE KETONE NEGATIVE mg/dL NEGATIVE [facility] SPECIFIC GRAVITY,URINE 1.010 1.001-1.035 [facility] URINE BLOOD NEGATIVE NEGATIVE [facility] PH,URINE 6.5 5.0-9.0 [facility] URINE PROTEIN NEGATIVE mg/dL NEGATIVE [facility] URINE UROBILINOGEN NORMAL(0.2-1) mg/dL 0-1 [facility] URINE NITRATE NEGATIVE NEGATIVE [facility] URINE LEUKOCYTE ESTERASE NEGATIVE NEGATIVE [facility] ID Date Data Source [id number] 09/30/2020 06:25:[facility] AD[facility]YALA Observation Re port - [facility], [facility].VisitID: [id number] [place] [address] [phone], [facility] [place] Date/Time: 09/30/2020 16:28 Weight:83 kg (S). Height/Length:63 inches. BMI:32.4 FAMILY HISTORYMother: Hypertension. INSTRUCTIONSYour Current Medications: Your current home medications have been reviewed. CONTINUE TAKING THE FOLLOWING MEDICATIONS:Cymbalta Oral : Capsule Delayed Release Particles 60 mg, 1 capsule daily, Last: , 40mg tab in evening. Gabapentin Oral : Capsule 300 mg, 1 capsule 3x a day, Last: . hydrOXYzine HCl Oral : Tablet 25 mg, 1 tablet 3x a day, Last: . Lyrica Oral : Capsule 75 mg, 1 capsule 2x a day, Last: . Omeprazole Oral : Capsule Delayed Release 40 mg, 1 capsule 2x a day, Last: . Primidone Oral : Tablet 50 mg, 1 tablet 2x a day, Last: . tiZANidine HCl Oral : Tablet 4 mg, 1 tablet 3x a day, Last: , prn. Ventolin HFA Inhalation : Aerosol Solution 108 (90 Base) mcg/act, 2 puffs 4x a day, Last: , prn. Zofran Oral : Tablet 4 mg, 1 tablet q6h, Last: . (Electronically signed by Jermaine Moody P.A. 09/30/2020 18:23) Name Value Range Interpretation Code Description Data Shell rce(s) Supporting Document(s) ID Date Data Source FSH & LH EVAL 08/03/2020 12:00:00 AM EST eCW1 ([facility]) Name Value Range Interpretation Code Description Data Shell rce(s) Supporting Document(s) 7.3 eCW1 ([facility]) 12.6 eCW1 ([facility]) ID Date Data Source ESTROGENS TOTAL 08/03/2020 12:00:00 AM EST eCW1 ([facility]) Name Value Range Interpretation Code Description Data Shell rce(s) Supporting Document(s) 254 . eCW1 ([facility]) ID Date Data Source RESPIRATORY PANEL 06/23/2020 12:00:00 AM EST eCW1 ([facility]) Name Value Range Interpretation Code Description Data Shell rce(s) Supporting Document(s) This respiratory PCR panel detects Influenza A H1, H3 and RESPIRATORY PANEL eCW1 ([facility]) ID Date Data Source GATS (NEGATIVE STREP SCREEN) 06/23/2020 12:00:00 AM EST eCW1 ([facility]) Name Value Range Interpretation Code Description Data Shell rce(s) Supporting Document(s) FULL REPORT IN LAB NOTES (eCW and [facility]). GATS CULTURE (NEG STREP SCR) eCW1 ([facility]) ID Date Data Source Rapid Strep (Lexie Strep A+ CESAR) 06/23/2020 12:00:00 AM EST eCW1 ([facility]) Name Value Range Interpretation Code Description Data Shell rce(s) Supporting Document(s) Negative Rapid Strep (Lexie Strep A+ CESAR) eCW1 ([facility]) Yes Internal Controls Perform ed (Y/N) eCW1 ([facility]) Negative Result (Positive/Negative) eCW 1 ([facility]) Procedure Social History Code Duration Value Status Description Data Source(s ) Smoking 10/03/2020 12:00:00 AM EST Current Smoker completed Curre nt Smoker eCW1 ([facility]) Smoking 10/03/2020 12:00:00 AM EST Current Smoker completed Curre nt Smoker eCW1 ([facility]) Smoking 09/19/2020 12:00:00 AM EST Current Smoker completed Curre nt Smoker eCW1 ([facility]) Smoking 09/05/2020 12:00:00 AM EST Current Smoker completed Curre nt Smoker eCW1 ([facility]) Smoking 08/09/2020 12:00:00 AM EST Current Smoker completed Curre nt Smoker eCW1 ([facility]) Smoking 08/09/2020 12:00:00 AM EST Current Smoker completed Curre nt Smoker eCW1 ([facility]) Smoking 08/09/2020 12:00:00 AM EST Current Smoker completed Curre nt Smoker eCW1 ([facility]) Smoking 08/09/2020 12:00:00 AM EST Current Smoker completed Curre nt Smoker eCW1 ([facility]) Smoking 08/09/2020 12:00:00 AM EST Current Smoker completed Curre nt Smoker eCW1 ([facility]) Smoking 08/03/2020 12:00:00 AM EST Current Smoker completed Curre nt Smoker eCW1 ([facility]) Smoking 08/03/2020 12:00:00 AM EST Current Smoker completed Curre nt Smoker eCW1 ([facility]) Smoking 07/06/2020 12:00:00 AM EST Current Smoker completed Curre nt Smoker eCW1 ([facility]) Smoking 07/06/2020 12:00:00 AM EST Current Smoker completed Curre nt Smoker eCW1 ([facility]) Smoking 07/06/2020 12:00:00 AM EST Current Smoker completed Curre nt Smoker eCW1 ([facility]) Smoking 06/23/2020 12:00:00 AM EST Current Smoker completed Curre nt Smoker eCW1 ([facility]) Smoking 06/23/2020 12:00:00 AM EST Current Smoker completed Curre nt Smoker eCW1 ([facility]) Smoking 06/23/2020 12:00:00 AM EST Current Smoker completed Curre nt Smoker eCW1 ([facility]) Smoking 11/13/2019 12:00:00 AM EDT Current Smoker completed Curre nt Smoker eCW1 ([facility]) Smoking 11/13/2019 12:00:00 AM EDT Current Smoker completed Curre nt Smoker eCW1 ([facility]) Vital Signs ID Date Data Source UNK Name Value Range Interpretation Code Description Data Source(s) Diastolic blood pressure 79 mm[Hg] 79 mm[Hg] eCW1 ([facility]) Systolic blood pressure 127 mm[Hg] 127 mm[Hg] e CW1 ([facility]) Body temperature 96.7 [degF] 96.7 [degF] eCW1 ( [facility]) Respiratory rate 18 /min 18 /min eCW1 ([facility]) Heart rate 106 /min 106 /min eCW1 ([facility]) Body mass index (BMI) [Ratio] 32.77 kg/m2 32.77 kg/m2 W1 ([facility]) Body height 63 [in_i] 63 [in_i] eCW1 ([facility]) Body weight 185 [lb_av] 185 [lb_av] eCW1 ([facility]) Diastolic blood pressure 76 mm[Hg] 76 mm[Hg] eCW1 ([facility]) Systolic blood pressure 116 mm[Hg] 116 mm[Hg] e CW1 ([facility]) Oxygen saturation in Arterial blood by Pulse oximetry 97 % 97 % eCW1 ([facility]) Heart rate 90 /min 90 /min eCW1 ([facility]) Body mass index (BMI) [Ratio] 33.30 kg/m2 33.30 kg/m2 eCW1 ([facility]) Body weight 188 [lb_av] 188 [lb_av] eCW1 ([facility]) Body height [in_i] eCW1 ([facility]) Diastolic blood pressure 80 mm[Hg] 80 mm[Hg] eCW1 ([facility]) Systolic blood pressure 132 mm[Hg] 132 mm[Hg] e CW1 ([facility]) Body temperature 98.6 [degF] 98.6 [degF] eCW1 ( [facility]) Respiratory rate 20 /min 20 /min eCW1 ([facility]) Heart rate 106 /min 106 /min eCW1 ([facility]) Body mass index (BMI) [Ratio] 32.59 kg/m2 32.59 kg/m2 eCW1 ([facility]) Body height 63 [in_i] 63 [in_i] eCW1 ([facility]) Body weight 184 [lb_av] 184 [lb_av] eCW1 ([facility]) Diastolic blood pressure 72 mm[Hg] 72 mm[Hg] eCW1 ([facility]) Systolic blood pressure 110 mm[Hg] 110 mm[Hg] e CW1 ([facility]) Body temperature 98.6 [degF] 98.6 [degF] eCW1 ( [facility]) Respiratory rate 18 /min 18 /min eCW1 ([facility]) Heart rate 103 /min 103 /min eCW1 ([facility]) Body mass index (BMI) [Ratio] 33.14 kg/m2 33.14 kg/m2 eCW1 ([facility]) Body height 63 [in_i] 63 [in_i] eCW1 ([facility]) Body weight 187.12 [lb_av] 187.12 [lb_av] eCW1 ([facility]) Diastolic blood pressure 82 mm[Hg] 82 mm[Hg] eCW1 ([facility]) Systolic blood pressure 124 mm[Hg] 124 mm[Hg] e CW1 ([facility]) Body temperature 97.9 [degF] 97.9 [degF] eCW1 ( [facility]) Respiratory rate 18 /min 18 /min eCW1 ([facility]) Heart rate 106 /min 106 /min eCW1 ([facility]) Body mass index (BMI) [Ratio] 32.84 kg/m2 32.84 kg/m2 eCW1 ([facility]) Body height 63 [in_i] 63 [in_i] eCW1 ([facility]) Body weight 185.4 [lb_av] 185.4 [lb_av] eCW1 ([facility]) Diastolic blood pressure 77 mm[Hg] 77 mm[Hg] eCW1 ([facility]) Systolic blood pressure 122 mm[Hg] 122 mm[Hg] e CW1 ([facility]) Body temperature 97.8 [degF] 97.8 [degF] eCW1 ( [facility]) Respiratory rate 17 /min 17 /min eCW1 ([facility]) Heart rate 102 /min 102 /min eCW1 ([facility]) Body mass index (BMI) [Ratio] 32.84 kg/m2 32.84 kg/m2 W1 ([facility]) Body height 63 [in_us] 63 [in_us] eCW1 ([facility]) Body weight Measured 185.4 [lb_av] 185.4 [lb_av ] eCW1 ([facility]) Diastolic blood pressure 74 mm[Hg] 74 mm[Hg] eCW1 ([facility]) Systolic blood pressure 113 mm[Hg] 113 mm[Hg] e CW1 ([facility]) Body temperature 98.0 [degF] 98.0 [degF] eCW1 ( [facility]) Respiratory rate 18 /min 18 /min eCW1 ([facility]) Heart rate 78 /min 78 /min eCW1 ([facility]) Body weight Measured 183 [lb_av] 183 [lb_av] eC W1 ([facility]) Body mass index (BMI) [Ratio] 32.41 kg/m2 32.41 kg/m2 eCW1 ([facility]) Body height 63 [in_us] 63 [in_us] eCW1 ([facility]) Patient Treatment Plan of Care Planned Activity Planned Date Details Description Data Source (s) 120 ACTUAT mometasone furoate 0.1 MG/ACTUAT Metered Do se Inhaler [Asmanex] 10/03/2020 12:00:00 AM EST eCW1 ([facility]) 120 ACTUAT Fluticasone propionate 0.11 MG/ACTUAT Meter ed Dose Inhaler [Flovent] 10/03/2020 12:00:00 AM EST eCW1 ([facility]) Sucralfate 1000 MG Oral Tablet [Carafate] 10/03/2020 12:00:00 AM ES T eCW1 ([facility]) Qvar RediHaler 80 MCG/ACT 10/03/2020 12:00:00 AM EST eCW1 ([facility]) 120 ACTUAT mometasone furoate 0.1 MG/ACTUAT Metered Do se Inhaler [Asmanex] 10/03/2020 12:00:00 AM EST eCW1 ([facility]) 120 ACTUAT Fluticasone propionate 0.11 MG/ACTUAT Meter ed Dose Inhaler [Flovent] 10/03/2020 12:00:00 AM EST eCW1 ([facility]) Sucralfate 1000 MG Oral Tablet [Carafate] 10/03/2020 12:00:00 AM ES T eCW1 ([facility]) Qvar RediHaler 80 MCG/ACT 10/03/2020 12:00:00 AM EST eCW1 ([facility]) pregabalin 75 MG Oral Capsule [Lyrica] 09/19/2020 12:00:00 AM EST eCW1 ([facility]) Albuterol Sulfate HFA 108 (90 Base) MCG/ACT 08/08/2020 12:00:00 AM EST eCW1 ([facility]) Hydroxyzine Hydrochloride 25 MG Oral Tablet 08/03/2020 12:00:00 AM EST eCW1 ([facility]) RA Saline Solution - 08/03/2020 12:00:00 AM EST eCW1 ([facility]) Hydroxyzine Hydrochloride 25 MG Oral Tablet 08/03/2020 12:00:00 AM EST eCW1 ([facility]) RA Saline Solution - 08/03/2020 12:00:00 AM EST eCW1 ([facility]) Hydroxyzine Hydrochloride 25 MG Oral Tablet 08/03/2020 12:00:00 AM EST eCW1 ([facility]) Primidone 50 MG Oral Tablet 07/06/2020 12:00:00 AM EST eCW1 ([facility]) Primidone 50 MG Oral Tablet 07/06/2020 12:00:00 AM EST eCW1 ([facility]) Primidone 50 MG Oral Tablet 07/06/2020 12:00:00 AM EST eCW1 ([facility]) doxycycline hyclate 100 MG Oral Capsule 07/04/2020 12:00:00 AM EST eCW1 ([facility]) doxycycline hyclate 100 MG Oral Capsule 07/04/2020 12:00:00 AM EST eCW1 ([facility]) doxycycline hyclate 100 MG Oral Capsule 07/04/2020 12:00:00 AM EST eCW1 ([facility]) doxycycline hyclate 100 MG Oral Capsule 07/04/2020 12:00:00 AM EST eCW1 ([facility]) Ascorbic Acid 500 MG Oral Tablet 06/23/2020 12:00:00 AM EST eCW1 ([facility]) Zinc 50 MG 06/23/2020 12:00:00 AM EST e CW1 ([facility]) Ascorbic Acid 500 MG Oral Tablet 06/23/2020 12:00:00 AM EST eCW1 ([facility]) Zithromax Z-Tomer 250 MG 06/23/2020 12:00:00 AM EST eCW1 ([facility]) Prednisone 20 MG Oral Tablet 06/23/2020 12:00:00 AM EST eCW1 ([facility]) Zinc 50 MG 06/23/2020 12:00:00 AM EST e CW1 ([facility]) Ascorbic Acid 500 MG Oral Tablet 06/23/2020 12:00:00 AM EST eCW1 ([facility]) Zithromax Z-Tomer 250 MG 06/23/2020 12:00:00 AM EST eCW1 ([facility]) Prednisone 20 MG Oral Tablet 06/23/2020 12:00:00 AM EST eCW1 ([facility]) Zinc 50 MG 06/23/2020 12:00:00 AM EST e CW1 ([facility]) Prednisone 20 MG Oral Tablet 06/23/2020 12:00:00 AM EST eCW1 ([facility]) Zithromax Z-Tomer 250 MG 06/23/2020 12:00:00 AM EST eCW1 ([facility]) doxycycline hyclate 100 MG Oral Capsule 10/12/2019 12:00:00 AM EST eCW1 ([facility]) Amoxicillin 875 MG Oral Tablet 09/16/2019 12:00:00 AM EST eCW1 ([facility])
[2020-10-06 15:21] LABS: BASO % 0.4 % (0.0-1.0); EOS # 0.2 10^3/uL (0.0-0.5); EOS % 3.1 % (0.0-3.0); HEMATOCRIT 38.6 % (36.0-47.0); HEMOGLOBIN 13.1 g/dl (12.0-15.5); LYMPH % 14.5 % (24.0-44.0); MEAN CORPUSCULAR HEMOGLOBIN 33.6 pg (27.0-33.0); MEAN CORPUSCULAR HGB CONC 33.9 g/dl (32.0-36.5); MONO # 0.5 10^3/uL (0.0-0.8); MONO % 7.2 % (2.0-8.0); NEUTROPHILS # 5.2 10^3/uL (1.5-8.5); NEUTROPHILS % 74.4 % (36.0-66.0); PLATELET COUNT, AUTOMATED 115 10^3/uL (150-450)
[2020-10-06 15:51] LABS: ALBUMIN 3.7 GM/DL (3.2-5.2); ALT/SGPT 78 U/L (12-78); BILIRUBIN,DIRECT 0.2 MG/DL (0.0-0.2); BILIRUBIN,TOTAL 0.5 MG/DL (0.2-1.0); C REACTIVE PROTEIN QUANTITATIV 0.92 MG/DL (0.00-0.30); CK-MB VALUE MASS 1.1 NG/ML (<3.6); CPK CREATINE PHOSPHOKINASE 71 U/L (26-192); FREE T4 0.64 NG/DL (0.76-1.46); MB/CK RELATIVE INDEX 1.55 (< OR =4); NT-PRO BNP 23 PG/ML (<125); THYROID STIMULATING HORMONE 0.859 uIU/ML (0.358-3.740); TOTAL PROTEIN 6.9 GM/DL (6.4-8.2); TROPONIN I < 0.02 NG/ML (< 0.10)
[2020-10-06 15:52] LABS: ERYTHROCYTE SEDIMENTATION RATE 5 mm/hr (0-20)
[2020-10-06 15:58] LABS: INR 0.89; PROTHROMBIN TIME 12.2 SECONDS (12.5-14.3)
[2020-10-06 15:59] LABS: PARTIAL THROMBOPLASTIN TIME 26.9 SECONDS (24.2-38.5)
[2020-10-06 16:01] LABS: D-DIMER QUANT 363.3 ng/ml (<500)
[2020-10-06 16:28] VITALS: BP 151/87
--- NOTE | 2020-10-06 19:44 | ECGEPIP ---
[facility] - ED Test Date: 2020-10-06 Pat Name: ADRIENNE AYALA Department: Room: - Gender: Female [employer]: FRANCK : 1980 Requested By: CORBY MCGHEE PA-C Order Number: [id number] Reading MD: Allison Silver Measurements Intervals Pala Rate: 92 P: 65 SD: 140 QRS: 58 QRSD: 82 T: 38 QT: 366 QTc: 452 Interpretive Statements Normal sinus rhythm NSTTW abnormalities decreased rate 07/02/20 Electronically Signed on 10-06-2020 19:43:46 EST by Allison Silver
== END 2020-10-06 16:30 | disposition home or self-care (01) ==
LOC: M ED 13:55
DX: R22.43 Localized swelling, mass and lump, lower limb, bilateral (principal); E66.9 Obesity, unspecified; Z79.899 Other long term (current) drug therapy; Z88.6 Allergy status to analgesic agent

== ENCOUNTER 2022-07-31 07:25 | Emergency (ER) | payer OTHER ==
[~2022-07-31] VITALS: Ht 160 cm; Wt 90.3 kg
[~2022-07-31 07:25] MED LIST changes: -CYMB60CA3 PO; +CYMB60CA4 PO; +DOXY-443; -DOXY100C37; -MONT10TA10 PO; +MONT10TA97 PO; +OMEP40CA4 PO; -OMEP40CA97 PO; +ONDA-84 PO; -ONDA8TAB10 PO
[2022-07-31 07:26] VITALS: BP 123/55
[2022-07-31] MEDS ORDERED: DOXY-443 PO (11:54)
[2022-07-31] MEDS ORDERED: FIOR1CAP PO (11:54)
== END 2022-07-31 12:11 | disposition home or self-care (01) ==
LOC: M ED 07:25
DX: H02.821 Cysts of right upper eyelid (principal); F17.200 Nicotine dependence, unspecified, uncomplicated; Z79.899 Other long term (current) drug therapy; Z88.6 Allergy status to analgesic agent

== ENCOUNTER → 2024-03-31 | Outpatient (CLI) | payer OTHER ==
[~2024-03-31] MED LIST changes: +ABIL1TAB11 PO; +CETI10CH PO; +DICY20TA20 PO; +DOXY-323; +DOXY-323 PO; -DOXY-443; +DULO-34 PO; +FIOR1CAP PO; +METH-1164 PO; -OXYB5TAB10 PO; +OXYB5TAB14 PO; -PREG75CA2 PO; +PREG75CA3 PO; +PROA1AER2 INH; +SUCR1TAB56 PO; +THERTAB52 PO; +TRAZ-186 PO
[2024-03-31 16:40] LABS: BASO # 0.1 10^3/uL (0.0-0.2); BASO % 0.6 % (0.0-1.0); EOS # 0.6 10^3/uL (0.0-0.5); EOS % 5.2 % (0.0-3.0); HEMATOCRIT 39.5 % (36.0-47.0); LYMPH # 2.9 10^3/uL (1.5-5.0); LYMPH % 27.1 % (24.0-44.0); MEAN CORPUSCULAR HEMOGLOBIN 31.6 pg (27.0-33.0); MEAN CORPUSCULAR HGB CONC 32.9 g/dl (32.0-36.5); MEAN CORPUSCULAR VOLUME 95.9 fl (80.0-96.0); MONO # 0.7 10^3/uL (0.0-0.8); MONO % 6.7 % (2.0-8.0); NEUTROPHILS # 6.5 10^3/uL (1.5-8.5); PLATELET COUNT, AUTOMATED 211 10^3/uL (150-450); RED BLOOD COUNT 4.12 10^6/uL (4.00-5.40); WHITE BLOOD COUNT 10.8 10^3/uL (4.0-10.0)
[2024-03-31 17:07] LABS: ALBUMIN 3.5 G/DL (3.2-5.2); ALKALINE PHOSPHATASE 66 U/L (46-116); ALT/SGPT 14 U/L (7.0-40); AST/SGOT 16 U/L (<34); BILIRUBIN,TOTAL 0.2 MG/DL (0.3-1.2); BLOOD UREA NITROGEN 8 MG/DL (9-23); CALCIUM LEVEL 8.4 MG/DL (8.5-10.1); CARBON DIOXIDE LEVEL 27 MMOL/L (20-31); CHLORIDE LEVEL 107 MMOL/L (98-107); CREATININE FOR GFR 0.67 MG/DL (0.55-1.30); GLOMERULAR FILTRATION RATE > 60.0 (>58); GLUCOSE, FASTING 97 MG/DL (60-100); POTASSIUM SERUM 4.1 MMOL/L (3.5-5.1); SODIUM LEVEL 139 MMOL/L (136-145); TOTAL PROTEIN 6.6 G/DL (5.7-8.2)
== END ==
LOC: M RAD 15:48
PROVIDERS: ATTEND Physician Assistant
DX: Z01.818 Encounter for other preprocedural examination (principal)

== ENCOUNTER 2024-04-07 06:48 | Day surgery (SDC) | payer OTHER ==
[~2024-04-07] VITALS: Ht 160 cm; Wt 98.9 kg
[2024-04-07] MEDS ORDERED: LR 1,000 ML IV SCH (07:45)
[2024-04-07] MEDS: SCOPOLAMINE 1MG TRANSDERMAL PATCH TOP ONE (07:55)
[2024-04-07] MEDS ORDERED: fentaNYL 100 MCG/2 ML INJECTION As Ordered ONE (08:45)
[2024-04-07] MEDS ORDERED: ONDANSETRON 4MG 2ML VIAL As Ordered ONE (08:45)
[2024-04-07] MEDS ORDERED: LIDOCAINE 2% 100MG/5ML SDV (FOR ANES.) As Ordered ONE (08:45)
[2024-04-07] MEDS ORDERED: propofoL 200 MG/20 ML VIAL As Ordered ONE (08:45)
[2024-04-07] MEDS ORDERED: MIDAZOLAM INJ 2MG/2ML VIAL As Ordered ONE (08:46)
[2024-04-07] MEDS ORDERED: ALBUTEROL 6.7GM INHALER **FOR ANES. CART/OMNICELL ONLY As Ordered ONE (09:07)
[2024-04-07] MEDS ORDERED: dexmedeTOMIDine (4MCG/ML)200MCG/50ML BTL (PRECEDEX) As Ordered ONE (09:12)
[2024-04-07] MEDS: ceFAZolin SOD 2 GM in IV 1 EA IV ONE (09:39)
[2024-04-07] MEDS: POVIDONE-IODINE 5% OPHTH PREP SOL 30ML As Ordered ONE (09:48)
[2024-04-07] MEDS ORDERED: ACETAMINOPHEN 1000MG 100ML IV BAG As Ordered ONE (09:51)
[2024-04-07] MEDS ORDERED: LACRILUBE (AKWA TEARS) OPHTH OINT 3.5GM As Ordered ONE (10:01)
[2024-04-07] MEDS: LIDOCAINE 2% W/EPINEPHRINE 20ML VIAL **PRES FREE As Ordered ONE (10:06)
[2024-04-07] MEDS ORDERED: ONDANSETRON 4MG 2ML VIAL IV PRN (10:15)
[2024-04-07] MEDS ORDERED: fentaNYL 100 MCG/2 ML INJECTION IV PRN (10:15)
[2024-04-07] MEDS ORDERED: oxyCODONE 5MG TAB PO PRN (10:15)
[2024-04-07] MEDS ORDERED: MORPHINE 2 MG/ML 1ML VIAL IV PRN (10:15)
[2024-04-07] MEDS: BACITRACIN OINTMENT 30GM TUBE As Ordered ONE (10:24)
[2024-04-07] MEDS: LIDOCAINE W/EPINEPHRINE 1% 20ML VIAL As Ordered ONE (10:25)
[2024-04-07 11:20] VITALS: BP 124/66; TEMP 97.1; O2SAT 100
== END 2024-04-07 12:25 | disposition home or self-care (01) ==
LOC: M SDC 06:48
PROVIDERS: ATTEND Plastic Surgery Surgery of the Hand
DX: L72.0 Epidermal cyst (principal); J45.909 Unspecified asthma, uncomplicated; K58.9 Irritable bowel syndrome, unspecified; K21.9 Gastro-esophageal reflux disease without esophagitis; Z79.899 Other long term (current) drug therapy; Z79.51 Long term (current) use of inhaled steroids; Z85.41 Personal history of malignant neoplasm of cervix uteri; F17.290 Nicotine dependence, other tobacco product, uncomplicated; F31.9 Bipolar disorder, unspecified; Z90.710 Acquired absence of both cervix and uterus; Z98.84 Bariatric surgery status; Z88.6 Allergy status to analgesic agent
CPT/HCPCS: 11442; 12051; 88305; J0131; J0690; J1100; J2250; J2405; J3010

== ENCOUNTER → 2024-04-20 | Outpatient (CLI) | payer OTHER | LOC: M WHC 12:40 | PROVIDERS: ATTEND Physician Assistant | DX: N83.209 Unspecified ovarian cyst, unspecified side (principal) ==

== ENCOUNTER → 2024-05-04 | Outpatient (CLI) | payer OTHER | LOC: M RAD 14:18 | PROVIDERS: ATTEND Physician Assistant | DX: M25.552 Pain in left hip (principal); M25.511 Pain in right shoulder ==

== ENCOUNTER → 2024-05-18 | Outpatient (REF) ==
[~2024-05-18] MED LIST changes: -DOXY-323; -DOXY-323 PO; +DOXY-441; +DOXY-441 PO; +GABA-1172 PO; -GABA-282 PO; +LUMA21CA PO
== END ==
LOC: M PLAIMG 12:59
PROVIDERS: ATTEND Internal Medicine
DX: R52 Pain, unspecified (principal)

== ENCOUNTER → 2024-10-01 | Outpatient (REF) | payer OTHER ==
[2024-10-01 18:33] LABS: Trichomonas vaginalis (AMP) NOT DETECTED (NEGATIVE)
[2024-10-01 18:57] LABS: GC DNA AMPLIFICATION NEGATIVE (NEGATIVE)
== END ==
LOC: M LAB REF 16:25
PROVIDERS: ATTEND Nurse Practitioner Family
DX: R30.0 Dysuria (principal); Z11.3 Encounter for screening for infections with a predominantly sexual mode of transmission; R39.15 Urgency of urination

== ENCOUNTER 2024-10-27 09:13 | Day surgery (SDC) | payer OTHER ==
[~2024-10-27] VITALS: Ht 160 cm; Wt 98.2 kg
[~2024-10-27 09:13] MED LIST changes: +BUSP10TA PO; +GUAN1TA PO; +LEXA1TAB PO
[2024-10-27 10:54] VITALS: TEMP 98.6
[2024-10-27 11:10] VITALS: BP 118/56; O2SAT 99
== END 2024-10-27 11:20 | disposition home or self-care (01) ==
LOC: M OPP 09:13
PROVIDERS: ATTEND Internal Medicine Gastroenterology
DX: K63.5 Polyp of colon (principal); K64.8 Other hemorrhoids; Z80.0 Family history of malignant neoplasm of digestive organs; Z86.0100 Personal history of colon polyps, unspecified; Z88.6 Allergy status to analgesic agent; Z79.51 Long term (current) use of inhaled steroids; Z79.899 Other long term (current) drug therapy; J45.909 Unspecified asthma, uncomplicated; F17.210 Nicotine dependence, cigarettes, uncomplicated

== ENCOUNTER → 2025-02-16 | Outpatient (REF) ==
[~2025-02-16] MED LIST changes: +TURM1CAP7 PO; -TURM500C3 PO
== END ==
LOC: M PLAIMG 09:43
PROVIDERS: ATTEND Internal Medicine
DX: M54.6 Pain in thoracic spine (principal)

== ENCOUNTER → 2025-02-16 | Outpatient (CLI) | payer OTHER | LOC: M PLAIMG 09:41 | PROVIDERS: ATTEND Family Medicine | DX: J20.9 Acute bronchitis, unspecified (principal) ==